=== PATIENT | male | born 1995 | race Caucasian/White ===

== ENCOUNTER 2016-09-16 08:12 | Emergency (ER) | payer SELFPAY ==
[~2016-09-16] VITALS: Ht 152.4 cm; Wt 57.0 kg
[~2016-09-16 08:12] MED LIST: DOCU-144 PO; FER325 PO; HYDR-3671 PO; ISOS60TA PO; LABE300T PO; MYCO500T3 PO; NIFE30TA66 PO; PRED2.5T3 PO; RANI150C11 PO; TACR1CAP PO; ZOF8 PO
[2016-09-16 08:16] VITALS: Ht 152.4 cm; Wt 57.0 kg
[2016-09-16] MEDS ORDERED: GLUCAGON 1 MG INJ ONE (12:16)
== END 2016-09-16 09:38 | disposition left against medical advice (07) ==
LOC: E/R 08:12
DX: Z53.21 Procedure and treatment not carried out due to patient leaving prior to being seen by health care provider (principal)
CPT/HCPCS: J1610

== ENCOUNTER 2016-09-19 21:57 | Inpatient (IN) | payer OTHER ==
[~2016-09-19] VITALS: Ht 160 cm; Wt 52.3 kg
[2016-09-19 23:51] LABS: ADD SCAN DIFF NO
[2016-09-19 23:52] LABS: BASOPHILS % 0.4 % (0.0-2.0); EOSINOPHILS # 0.3 10^3/ul (0.0-0.5); EOSINOPHILS % 3.9 % (0.0-7.0); HEMATOCRIT 38.2 % (42.0-52.0); HEMOGLOBIN 12.1 g/dl (14.0-18.0); LYMPHOCYTES # 1.8 10^3/ul (0.8-2.9); LYMPHOCYTES % 23.1 % (15.0-51.0); MEAN CORPUSCULAR HEMOGLOBIN 26.4 pg (29.0-33.0); MEAN CORPUSCULAR HGB CONC 31.7 g/dl (32.0-37.0); MEAN CORPUSCULAR VOLUME 83.4 fl (82.0-101.0); MONOCYTE # 0.8 10^3/ul (0.3-0.9); MONOCYTES % 9.8 % (0.0-11.0); NEUTROPHIL # 4.8 10^3/ul (1.6-7.5); NEUTROPHILS % 62.7 % (39.0-77.0); PLATELET COUNT 299 10^3/UL (140-415); RED BLOOD COUNT 4.58 10^6/ul (4.70-6.10); RED CELL DISTRIBUTION WIDTH 13.1 % (11.5-14.5); WHITE BLOOD COUNT 7.7 10^3/ul (4.8-10.8)
[2016-09-19] MEDS ORDERED: ACETAMINOPHEN 500 MG TAB PO STA (23:55)
[2016-09-20] VITALS (15 sets, daily range): BP systolic 135–192; BP diastolic 80–115; PULSE 77–89; RESP 16–20; TEMP 98.9; Ht 160 cm; Wt 52.3 kg
[2016-09-20] MEDS ORDERED: hydrALAzine 20 MG INJ IV ONE
[2016-09-20 00:03] LABS: INR 0.91; PROTIME 12.2 Sec (12.2-14.2)
[2016-09-20 00:04] LABS: PARTIAL THROMBOPLASTIN TIME 30.3 Sec (25.0-35.0)
[2016-09-20 00:20] LABS: ALBUMIN 3.7 g/dl (3.3-4.9)
[2016-09-20 00:21] LABS: POTASSIUM 3.6 mmol/L (3.5-5.1)
--- NOTE | 2016-09-20 00:22 | RADRPT ---
PROCEDURE: XR Chest. CLINICAL INDICATION: Chest pain. TECHNIQUE: Portable AP upright view of the chest was obtained. COMPARISON: 03/14/2016 FINDINGS: The cardiomediastinal silhouette is within upper normal limits. The lungs are clear. There is no e vidence for pleural effusion, pneumothorax or pulmonary vascular congestion. The osseous structures are intact with no evidence for acute abnormality. RPTAT:HJJR IMPRESSION: No evidence for acute intrathoracic pathology or change from 03/14/2016. Physician Theron Date Time Electronically viewed and signed by Ho Méndez Physician on 09/20/2016 00:21 /
[2016-09-20 00:23] LABS: ALBUMIN/GLOBULIN RATIO 1.19; CREATININE 0.9 mg/dl (0.61-1.24); TOTAL PROTEIN 6.8 g/dl (6.1-8.1)
[2016-09-20 00:37] LABS: TROPONIN-I 0.018 ng/ml (0.00-0.12)
[2016-09-20] MEDS ORDERED: ONDANSETRON 4 MG INJ ONE (01:00)
[2016-09-20] MEDS ORDERED: ONDANSETRON 4 MG INJ IV STA (01:00)
--- NOTE | 2016-09-20 02:44 | RADRPT ---
PROCEDURE: Noncontrast CT Head. CLINICAL INDICATION: Pain. TECHNIQUE: Noncontrast CT of the head was obtained. The administered radiation dose was CTDI vol = 45 mGy, DLP = 720 mGy-cm. COMPARISON: 03/15/2016 FINDINGS: The ventricles and sulci are within normal limits. There is no acute intracranial hemorrhage or ext ra-axial fluid collection. There is no mass effect. No midline shift is identified. There is no loss of valles-white differentiation to suggest acute infarction. The orbits are within normal limits. The paranasal sinuses and mastoid air cells are without fluid. No destructive osseous lesion is identified. IMPRESSION: No acute findings. RPTAT: HIKT .Niraj Bernstein MD, MD Date Time Electronically viewed and signed by .Niraj Bernstein MD, MD on 09/20/2016 02:44 .T/
--- NOTE | 2016-09-20 03:11 | ERA ---
ER Documentation Chief Complaint Date/Time DATE: 09/20/16 TIME: 03:09 Chief Complaint HIGH BP ALL DAY TODAY, STATES BP MEDS INEFFECTIVE C/O SEVERE HEADACHE +SOB HPI High blood pressure all day today. States blood pressure meds are ineffective. Complains of severe headache. No nausea no vomiting. No focal neurological complaints. ROS All systems reviewed and are negative except as per history of present illness. Medications Home Meds Active Scripts Ondansetron Hcl* (Zofran*) 8 Mg Tab, 8 MG PO Q6H Y for NAUSEA AND OR VOMITING, # 20 TAB Prov:ESTEFANY OTERO [employer] 03/15/16 Docusate Sodium* (Colace*) 100 Mg Capsule, 100 MG PO Q24H Y for CONSTIPATION, # 30 CAP Prov:ESTEFANY OTERO [employer] PROFESSIONAL 03/15/16 Ferrous Sulfate* (Ferrous Sulfate*) 325 Mg Tabec, 325 MG PO DAILY for 30 Days, TAB Prov:OTEROESTEFANY [employer]ODUCTION PROFESSIONAL 03/15/16 Nifedipine* (Procardia XL*) 30 Mg Tabsr, 30 MG PO BID, #180 TAB Prov:NADINE RICO MD 10/05/15 Hydralazine Hcl* (Hydralazine Hcl*) 25 Mg Tab, 50 MG PO Q8, #270 TAB Prov:NADINE RICO MD 10/05/15 Reported Medications Prednisone* (Prednisone*) 2.5 Mg Tablet, 7.5 MG PO DAILY, TAB 10/01/15 Labetalol Hcl* (Labetalol Hcl*) 300 Mg Tablet, 300 MG PO TID, TAB 10/01/15 Ranitidine Hcl (Ranitidine Hcl) 150 Mg Capsule, 75 MG PO BID, CAP 10/01/15 Mycophenolate Mofetil* (Mycophenolate Mofetil*) 500 Mg Tablet, 500 MG PO DAILY, TAB 10/01/15 Tacrolimus* (Tacrolimus*) 1 Mg Capsule, 1 MG PO Q12, CAP 10/01/15 Isosorbide Mononitrate* (Isosorbide Mononitrate*) 60 Mg Tab.er.24h, 60 MG PO DAILY, TAB 10/01/15 Allergies Allergies: Coded Allergies: No Known Allergy (Unverified , 10/01/15) PMhx/Soc History of Surgery: Yes (renal transplant) Anesthesia Reaction: No Hx Neurological Disorder: No Hx Respiratory Disorders: No Hx Cardiac Disorders: Yes (htn) Hx Psychiatric Problems: No Hx Miscellaneous Medical Probl: No Hx Alcohol Use: No Hx Substance Use: No Hx Tobacco Use: No Smoking Status: Never smoker Physical Exam Vitals Vital Signs Date Time Temp Pulse Resp B/P Pulse Ox O2 Delivery O2 Flow Rate FiO2 09/20/16 02:42 79 15 169/129 97 Room Air 09/20/16 02:04 84 18 166/128 98 Room Air 09/20/16 01:09 100 17 173/128 97 Room Air 09/20/16 00:25 96 16 180/130 99 Room Air 09/19/16 23:49 211/145 09/19/16 23:46 Nasal Cannula 2 09/19/16 23:37 87 24 214/148 100 Room Air 09/19/16 22:59 98.2 89 20 216/141 97 Physical Exam Const: [] Head: Atraumatic Eyes: Normal Conjunctiva ENT: Normal External Ears, Nose and Mouth. Neck: Full range of motion..~ No meningismus. Resp: Clear to auscultation bilaterally Cardio: Regular rate and rhythm, no murmurs Abd: Soft, non tender, non distended. Normal bowel sounds Skin: No petechiae or rashes Back: No midline or flank tenderness Ext: No cyanosis, or edema Neur: Awake and alert Psych: Normal Mood and Affect Result Diagram: 09/19/168 09/19/168 Results 24 hrs Laboratory Tests Test 09/19/16 23:48 Activated Partial Thromboplast Time 30.3Sec Alanine Aminotransferase (ALT/SGPT) 17IU/L Albumin 3.7g/dl Albumin/Globulin Ratio 1.19 Alkaline Phosphatase 94IU/L Anion Gap 15 Aspartate Amino Transf (AST/SGOT) 23IU/L B-Type Natriuretic Peptide 79PG/ML Basophils # 0.010^3/ul Basophils % 0.4% Blood Urea Nitrogen 15mg/dl Calcium Level 9.0mg/dl Carbon Dioxide Level 24mmol/L Chloride Level 103mmol/L Creatinine 0.90mg/dl Direct Bilirubin 0.00mg/dl Eosinophils # 0.310^3/ul Eosinophils % 3.9% Globulin 3.10g/dl Glucose Level 112mg/dl Hematocrit 38.2% Hemoglobin 12.1g/dl INR International Normalized Ratio 0.91 Indirect Bilirubin 0.0mg/dl Lymphocytes # 1.810^3/ul Lymphocytes % 23.1% Mean Corpuscular Hemoglobin 26.4pg Mean Corpuscular Hemoglobin Concent 31.7g/dl Mean Corpuscular Volume 83.4fl Mean Platelet Volume 10.0fl Monocytes # 0.810^3/ul Monocytes % 9.8% Neutrophils # 4.810^3/ul Neutrophils % 62.7% Nucleated Red Blood Cells # 0.010^3/ul Nucleated Red Blood Cells % 0.0/100WBC Platelet Count 92938^3/UL Potassium Level 3.6mmol/L Prothrombin Time 12.2Sec Prothrombin Time Ratio 1.0 Red Blood Count 4.5810^6/ul Red Cell Distribution Width 13.1% Sodium Level 138mmol/L Total Bilirubin 0.0mg/dl Total Protein 6.8g/dl Troponin I 0.018ng/ml White Blood Count 7.710^3/ul Current Medications Medications (Trade) Dose Ordered Sig/Tray Route PRN Reason Start Time Stop Time Status Last Admin Dose Admin Hydralazine HCl (Apresoline) 20 mg ONCE ONCE IV 09/20/16 00:00 09/20/16 00:01 DC 09/19/16 23:49 Acetaminophen (Tylenol Tab) 1,000 mg ONCE STAT PO 09/19/16 23:55 09/19/16 23:56 DC 09/20/16 00:24 Ondansetron HCl (Zofran Inj) 4 mg ONCE STAT IV 09/20/16 01:00 09/20/16 01:01 DC 09/20/16 01:03 Ondansetron HCl (Zofran Inj) 4 mg STK-MED ONCE .ROUTE 09/20/16 01:00 09/20/16 01:01 DC Procedures/MDM EKG: Rate/Rhythm: Normal Sinus Rhythm QRS, ST, T-waves: No changes consistent w/ acute ischemia Impression: No evidence of ischemia or arrhythmia Chest X-ray 1V Interpreted by me: Soft Tissue: No acute abnormalities Bones: No acute abnormalities Mediastinum/Cardiac Silhouette/Lungs: No acute abnormalities Medical decision-making: This very pleasant gentleman with hypertensive emergency. Given the fact that a renal transplant I feel the patient is to be admitted. Patient was admitted to hospitalist Critical Care: Time: 45 minutes Treatments/Evaluations: Close monitoring and treatment of unstable vital signs, cardiorespiratory, and neurologic status, while maintaining tight balance of fluid, respiratory, and cardiac interventions. Departure Diagnosis: Primary Impression: Hypertensive crisis Additional Impression: Headache Qualified Code: R51 - Nonintractable headache, unspecified chronicity pattern , unspecified headache type Condition: Critical FRANNIE LARA Sep 20, 2016 03:11
[2016-09-20] MEDS ORDERED: DOCUSATE SODIUM 100 MG CAP PO PRN ×2 (04:30)
[2016-09-20] MEDS ORDERED: NACL 0.9% 3 ML SYG IV SCH (04:30)
[2016-09-20] MEDS ORDERED: ACETAMINOPHEN 325 MG TAB PO PRN (04:30)
[2016-09-20] MEDS ORDERED: MAGNESIUM HYDROXIDE 30ML CUP PO PRN (04:30)
[2016-09-20] MEDS ORDERED: ONDANSETRON 4 MG TAB PO PRN (04:30)
[2016-09-20] MEDS ORDERED: NA PHOSPHATE/BIPHOS 133 ML ENEMA PR PRN (04:30)
[2016-09-20] MEDS ORDERED: LORAZEPAM 2 MG INJ IV PRN (04:30)
[2016-09-20] MEDS ORDERED: NITROGLYCERIN (SL) 0.4 MG TAB SL PRN (04:30)
[2016-09-20] MEDS ORDERED: ALBUTEROL/IPRATROPIUM (NEB) 3 ML AMP HHN PRN (04:30)
[2016-09-20] MEDS ORDERED: hydrALAzine 20 MG INJ IV PRN (04:30)
[2016-09-20] MEDS: SOD CHLORIDE 0.45% 1,000 ML IV SCH ×2 (06:33→17:36)
--- NOTE | 2016-09-20 08:14 | HP ---
DATE OF ADMISSION: 09/20/2016 IDENTIFICATION: This is a 21-year-old male. CHIEF COMPLAINT: Elevated blood pressure and headache. HISTORY OF PRESENT ILLNESS: A 21-year-old male with past medical history of renal transplant, prior hypertensive urgency, essential hypertension, history of medical noncompliance, prior pain medicati on seeking behavior who presents with headache and elevated blood pressure. Apparently, the patient has been taking his medicines, but says that the medicines have not been able to bring his blood pr essure down. He has been having high blood pressure all day and also headache as well. Denies any nausea, vomiting, no upper or lower GI bleeding, no focal deficits. No chest pain, no shortness of breath, no diarrhea, no constipation, no fevers or chills. When he came into the ER today, his syst olic blood pressure was as high as 216 and the diastolic was 141, and he was given hydralazine in th e ER as well. The patient was last here at our hospital from 03/14/2016 to 03/15/2016 for hypertens ulises urgency at that time as well. PAST MEDICAL HISTORY: As stated above. ALLERGIES: NO KNOWN DRUG ALLERGIES. HOME MEDICINES: 1. Include ferrous sulfate 325 mg daily. 2. Hydralazine 50 mg p.o. q.8 hours. 3. Imdur 60 mg daily. 4. Labetalol 300 mg t.i.d. 5. Nifedipine 30 mg b.i.d. 6. Colace 100 mg q.24h. p.r.n. 7. Zofran 8 mg p.o. q.6h. p.r.n. 8. Ranitidine 75 mg b.i.d. 9. Prednisone 7.5 mg daily. 10. Mycophenolate 500 mg daily. 11. Tacrolimus 1 mg q.12h. PAST SURGICAL HISTORY: Renal transplant in the past. FAMILY HISTORY: Noncontributory. SOCIAL HISTORY: Negative for smoking, drinking, or IV drug abuse. PHYSICAL EXAMINATION: VITAL SIGNS: T-max 98.2, pulse 79 to 100, respirations 15 to 24, blood pressure 216 to 166 systolic over 141 to 128 diastolic, saturating at 97% room air. GENERAL: The patient is lying in bed, answering questions appropriately. No acute distress. HEENT: Pupils equal, round, react to light. Extraocular muscles intact. NECK: Supple, no thyromegaly. LUNGS: Clear to auscultation bilaterally. CARDIOVASCULAR: S1, S2 heard. No murmurs, rubs, or gallops. ABDOMEN: Soft, nontender, nondistended. Normal bowel sounds. No rebound or guarding. MUSCULOSKELETAL: No lower extremity edema bilaterally. NEUROLOGIC: No focal deficits. LABORATORIES: CBC is normal. The comprehensive metabolic panel is normal. Head CT was performed, shows no acute findings. Chest x-ray: No evidence of any acute intrathoracic pathology. ASSESSMENT AND PLAN: A 21-year-old male coming in with headache and hypertensive urgency. 1. Headache, most likely secondary to elevated blood pressure. Continue pain control medications, check TSH, A1c, ad lipid panel. He is on morphine and [place] p.r.n. 2. Hypertensive emergency. Again, blood pressure is slightly improved after getting hydralazine in the ER. Continue home blood pressure medicines and high dose of hydralazine IV p.r.n. Consider ca rdiology consult as well. 3. History of renal transplant in the past. Continue CellCept and prednisone and Prograf medicatio ns. 4. Essential hypertension, see #1. 5. Gastrointestinal prophylaxis, ranitidine. 6. Deep venous thrombosis prophylaxis, heparin subQ. Dictated By: ANETA GANDHI Conf#: [id number] DID#: [id number]
[2016-09-20] MEDS: ISOSORBIDE MONONITRATE(SR)60 MG TAB PO SCH (08:28)
[2016-09-20] MEDS: RANITIDINE 150 MG TAB PO SCH ×2 (08:28→20:14)
[2016-09-20] MEDS: NIFEdipine (XL) 30 MG TAB PO SCH ×2 (08:28→20:14)
[2016-09-20] MEDS: FERROUS SULFATE (EC) 325 MG TAB PO SCH (08:28)
[2016-09-20] MEDS: HEPARIN 5,000 UNIT/0.5 ML SYG SC SCH ×2 (08:39→20:16)
[2016-09-20] MEDS: HYDROCODONE/APAP (5/325) TAB PO PRN (10:13)
[2016-09-20] MEDS: TACROLIMUS 1 MG CAP PO SCH ×2 (11:22→20:14)
[2016-09-20] MEDS: MYCOPHENOLATE 250 MG CAP PO SCH (11:22)
[2016-09-20] MEDS: predniSONE 2.5 MG TAB PO SCH (11:23)
[2016-09-20] MEDS: LABETALOL 100 MG TAB PO SCH ×3 (11:23→20:14)
[2016-09-20] MEDS: morphine 2 MG INJ IV PRN ×2 (11:24→19:40)
[2016-09-20] MEDS: ONDANSETRON 4 MG INJ IV PRN (13:47)
--- NOTE | 2016-09-20 17:18 | PDOCDIS ---
Discharge Instructions CONDITION Patient Condition: Good HOME CARE INSTRUCTIONS: Diet Instructions: Regular ACTIVITY: Activity Restrictions: No Restrictions FOLLOW UP/APPOINTMENTS Appointments F/U WITH YOUR PCP AND SCALES INSPECTOR IN 1-2 WEEKS IRENE ARRIAGA Sep 20, 2016 17:18
[2016-09-21] VITALS (7 sets, daily range): BP systolic 137–144; BP diastolic 81–89; PULSE 78–101; RESP 18–20
[2016-09-21] MEDS: ONDANSETRON 4 MG INJ IV PRN (01:51)
[2016-09-21] MEDS: HYDROCODONE/APAP (5/325) TAB PO PRN (01:51)
[2016-09-21 07:43] LABS: ADD SCAN DIFF NO; CHOL/HDL RATIO 3.5 RATIO
[2016-09-21 08:09] LABS: THYROID STIMULATING HORMONE 0.63 MIU/L (0.465-4.680)
[2016-09-21 08:17] LABS: BASOPHILS % 0.3 % (0.0-2.0); EOSINOPHILS # 0.2 10^3/ul (0.0-0.5); EOSINOPHILS % 2.1 % (0.0-7.0); HEMATOCRIT 35.4 % (42.0-52.0); HEMOGLOBIN 11.2 g/dl (14.0-18.0); LYMPHOCYTES # 2.3 10^3/ul (0.8-2.9); LYMPHOCYTES % 26.2 % (15.0-51.0); MEAN CORPUSCULAR HEMOGLOBIN 26.3 pg (29.0-33.0); MEAN CORPUSCULAR HGB CONC 31.6 g/dl (32.0-37.0); MEAN CORPUSCULAR VOLUME 83.1 fl (82.0-101.0); MEAN PLATELET VOLUME 10.7 fl (7.4-10.4); MONOCYTE # 0.5 10^3/ul (0.3-0.9); MONOCYTES % 5.5 % (0.0-11.0); NEUTROPHIL # 5.8 10^3/ul (1.6-7.5); NEUTROPHILS % 65.6 % (39.0-77.0); PLATELET COUNT 280 10^3/UL (140-415); RED BLOOD COUNT 4.26 10^6/ul (4.70-6.10); RED CELL DISTRIBUTION WIDTH 13.2 % (11.5-14.5); WHITE BLOOD COUNT 8.8 10^3/ul (4.8-10.8)
[2016-09-21 08:28] LABS: CREATININE 1.07 mg/dl (0.61-1.24)
[2016-09-21 08:30] LABS: CALCIUM 8.9 mg/dl (8.4-10.2); MAGNESIUM 1.6 mg/dl (1.7-2.5); PHOSPHORUS 4.4 mg/dl (2.5-4.9)
[2016-09-21] MEDS: RANITIDINE 150 MG TAB PO SCH (09:11)
[2016-09-21] MEDS: ISOSORBIDE MONONITRATE(SR)60 MG TAB PO SCH (09:11)
[2016-09-21] MEDS: FERROUS SULFATE (EC) 325 MG TAB PO SCH (09:12)
[2016-09-21] MEDS: LABETALOL 100 MG TAB PO SCH (09:12)
[2016-09-21] MEDS: predniSONE 2.5 MG TAB PO SCH (09:12)
[2016-09-21] MEDS: NIFEdipine (XL) 30 MG TAB PO SCH (09:12)
[2016-09-21] MEDS: TACROLIMUS 1 MG CAP PO SCH (09:12)
[2016-09-21] MEDS: MYCOPHENOLATE 250 MG CAP PO SCH (09:12)
[2016-09-21] MEDS: HEPARIN 5,000 UNIT/0.5 ML SYG SC SCH (09:13)
[2016-09-21] MEDS ORDERED: HYDR-906 PO (12:08)
[2016-09-21] MEDS ORDERED: ONDA4TAB8 PO (12:08)
--- NOTE | 2016-09-21 17:16 | DS ---
DATE OF ADMISSION: 09/20/2016 DATE OF DISCHARGE: 09/21/2016 DISCHARGE DIAGNOSES: 1. Hypertensive urgency secondary to severe headache, now stabilized. 2. History of renal transplant. Continue antirejection medications. 3. Hypertension, now stable on home regimen. No changes to home regimen as acute elevation was sec ondary to headache. HOSPITAL COURSE: The patient is a 21-year-old male with a history of end-stage renal disease, statu s post renal transplant. Apparently since surgery, he has had issues with hypertension. The patien t's BP is usually controlled on his regimen, but it does elevate when he has pain. He does have a h istory of noncompliance as well. The patient presented with a headache, and upon presentation to ED , his BP was found to be severely elevated with a systolic at 216. The patient was given hydralazin e in the ED, was given pain medications, and his BP did improve. He was maintained on his home liam men, and his blood pressure did stabilize with just his home regimen. The patient was felt to be st able for discharge. He does have a engineer fishing vessel, ____, who he follows up with. The patient rec ently had an MRA of his renal arteries looking for renal artery stenosis. The patient is to follow up with his engineer fishing vessel for results of these exams. On day of discharge, patient's vital signs, la bs, physical exam were stable. He had no acute complaints, and his questions were answered. CONDITION ON DISCHARGE: Stable. DISPOSITION: To home. MEDICATIONS: The patient is to continue his usual home medications. The patient was given a prescr iption for: 1. [place] 5/325 one tablet p.o. q.4 hours p.r.n. for pain. 2. Zofran 4 mg p.o. q.6 hours p.r.n. for nausea, vomiting. Once again, patient is to continue his home medications. FOLLOWUP: The patient to follow up with his PCP and engineer fishing vessel in 1 to 2 weeks. Greater than 30 minutes was spent coordinating discharge of this patient. Dictated By: IRENE ARRIAGA MD BS/NTS Conf#: [id number] DID#: [id number]
== END 2016-09-21 13:40 | disposition home or self-care (01) | DRG 305 ==
LOC: E/R 21:57 → TEL 09-20 02:51
PROVIDERS: ADMIT Hospitalist; ATTEND Hospitalist
DX: I10 Essential (primary) hypertension (principal); Z94.0 Kidney transplant status; R51 Headache
CPT/HCPCS: 36415; 70450; 71010; 80048; 80053; 80061; 83036; 83735; 83880; 84100; 84439; 84443; 84484; 85025; 85610; 85730; 93005; 96374; 96375; J0360; J2060; J2270; J2405; J7507; J7512; J7517

== ENCOUNTER 2016-11-13 06:28 | Emergency (ER) | payer OTHER ==
[~2016-11-13] VITALS: Ht 160 cm; Wt 57.0 kg
[~2016-11-13 06:28] MED LIST changes: +HYDR-906 PO; +ONDA4TAB8 PO
[2016-11-13 06:32] VITALS: Ht 160 cm; Wt 57.0 kg
[2016-11-13] MEDS ORDERED: morphine 4 MG/ML VIAL IV STA (06:55)
[2016-11-13] MEDS ORDERED: ONDANSETRON 4 MG INJ IV STA (06:55)
--- NOTE | 2016-11-13 06:57 | ERA ---
ER Documentation Chief Complaint Date/Time DATE: 11/13/16 TIME: 06:50 Chief Complaint headache since this morning HPI 21-year-old male with a history of hypertension and chronic kidney disease status post renal allograft in 2007 on immunosuppressive therapy presents to the ED complaining of acute onset of severe, sharp and pressure-like left-sided headache which radiates throughout his whole head this morning after awakening. Admits to not taking his medications this morning. No relieving or exacerbating factors. Denies visual changes, focal weakness or numbness. Mild , burning, nonradiating epigastric pain but no lower abdominal pain or pain over the transplant site. Nausea and nonbloody, nonbilious vomiting, but no diarrhea or constipation. No hematemesis, hematochezia or melanotic stools. No neck or back pain. No URI symptoms, rhinorrhea or nasal congestion. Denies dysuria, hematuria or polyuria. Denies chest pain or palpitation. No fevers or chills. ROS All systems reviewed and are negative except as per history of present illness. Medications Home Meds Active Scripts Ondansetron Hcl* (Zofran*) 4 Mg Tablet, 4 MG PO Q6H Y for NAUSEA AND OR VOMITING , #30 TAB Prov:IRENE ARRIAGA 09/21/16 Hydrocodone/Acetaminophen ([place] 5-325 Tablet) 1 Each Tablet, 1 EACH PO Q4 for PAIN, #30 TAB Prov:IRENE ARRIAGA 09/21/16 Ondansetron Hcl* (Zofran*) 8 Mg Tab, 8 MG PO Q6H Y for NAUSEA AND OR VOMITING, # 20 TAB Prov:ESTEFANY OTERO NP 03/15/16 Docusate Sodium* (Colace*) 100 Mg Capsule, 100 MG PO Q24H Y for CONSTIPATION, # 30 CAP Prov:ESTEFANY OTERO NP 03/15/16 Ferrous Sulfate* (Ferrous Sulfate*) 325 Mg Tabec, 325 MG PO DAILY for 30 Days, TAB Prov:ESTEFANY OTERO NP 03/15/16 Nifedipine* (Procardia XL*) 30 Mg Tabsr, 30 MG PO BID, #180 TAB Prov:NADINE RICO MD 10/05/15 Hydralazine Hcl* (Hydralazine Hcl*) 25 Mg Tab, 50 MG PO Q8, #270 TAB Prov:NADINE RICO MD 10/05/15 Reported Medications Prednisone* (Prednisone*) 2.5 Mg Tablet, 7.5 MG PO DAILY, TAB 10/01/15 Labetalol Hcl* (Labetalol Hcl*) 300 Mg Tablet, 300 MG PO TID, TAB 10/01/15 Ranitidine Hcl (Ranitidine Hcl) 150 Mg Capsule, 75 MG PO BID, CAP 10/01/15 Mycophenolate Mofetil* (Mycophenolate Mofetil*) 500 Mg Tablet, 500 MG PO DAILY, TAB 10/01/15 Tacrolimus* (Tacrolimus*) 1 Mg Capsule, 1 MG PO Q12, CAP 10/01/15 Isosorbide Mononitrate* (Isosorbide Mononitrate*) 60 Mg Tab.er.24h, 60 MG PO DAILY, TAB 10/01/15 Allergies Allergies: Coded Allergies: No Known Allergy (Unverified , 10/01/15) PMhx/Soc Reviewed in chart. As per HPI. 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 Severe distress due to pain. Head: Atraumatic Eyes: Pupils equal reactive to light, extraocular movements are intact normal Conjunctiva ENT: Normal External Ears, Nose and Mouth. Neck: Full range of motion. Nontender. No meningismus. Resp: Breath sounds are equal and clear to auscultation bilaterally Cardio: Tachycardic. Regular rate and rhythm, no murmurs Abd: Soft, mild epigastric tenderness but no tenderness over the right lower quadrant allograft site. No rebound or guarding. Skin: No petechiae or rashes Back: No midline or flank tenderness Ext: No cyanosis, or edema Neur: Awake and alert. Cranial nerves II through XII are grossly intact. No focal deficit observed. Psych: Patient appears extremely anxious but not depressed. Result Diagram: 11/13/16 0655 11/13/16 0655 Results 24 hrs Laboratory Tests Test 11/13/16 06:55 White Blood Count 11.610^3/ul Red Blood Count 4.8510^6/ul Hemoglobin 12.5g/dl Hematocrit 38.9% Mean Corpuscular Volume 80.2fl Mean Corpuscular Hemoglobin 25.8pg Mean Corpuscular Hemoglobin Concent 32.1g/dl Red Cell Distribution Width 13.8% Platelet Count 45389^3/UL Mean Platelet Volume 10.2fl Neutrophils % 56.4% Lymphocytes % 33.4% Monocytes % 7.4% Eosinophils % 2.2% Basophils % 0.3% Nucleated Red Blood Cells % 0.0/100WBC Neutrophils # 6.610^3/ul Lymphocytes # 3.910^3/ul Monocytes # 0.910^3/ul Eosinophils # 0.310^3/ul Basophils # 0.010^3/ul Nucleated Red Blood Cells # 0.010^3/ul Prothrombin Time 12.7Sec Prothrombin Time Ratio 1.0 INR International Normalized Ratio 0.95 Activated Partial Thromboplast Time 26.4Sec Sodium Level 137mmol/L Potassium Level 3.8mmol/L Chloride Level 108mmol/L Carbon Dioxide Level 22mmol/L Anion Gap 11 Blood Urea Nitrogen 17mg/dl Creatinine 1.01mg/dl Glucose Level 117mg/dl Calcium Level 9.7mg/dl Total Bilirubin 0.3mg/dl Direct Bilirubin 0.00mg/dl Indirect Bilirubin 0.3mg/dl Aspartate Amino Transf (AST/SGOT) 24IU/L Alanine Aminotransferase (ALT/SGPT) 32IU/L Alkaline Phosphatase 83IU/L Total Protein 7.1g/dl Albumin 4.0g/dl Globulin 3.10g/dl Albumin/Globulin Ratio 1.29 Lipase 149U/L Current Medications Medications (Trade) Dose Ordered Sig/Tray Route PRN Reason Start Time Stop Time Status Last Admin Dose Admin Ondansetron HCl (Zofran Inj) 4 mg ONCE STAT IV 11/13/16 06:55 11/13/16 06:57 DC 11/13/16 07:01 Morphine Sulfate (morphine) 4 mg ONCE STAT IV 11/13/16 06:55 11/13/16 06:57 DC 11/13/16 07:01 Hydralazine HCl (Apresoline) 20 mg ONCE ONCE IV 11/13/16 07:00 11/13/16 07:01 DC 11/13/16 07:01 Labetalol HCl (Labetalol) 20 mg ONCE ONCE IV 11/13/16 07:00 11/13/16 07:01 DC 11/13/16 07:02 Pantoprazole (Protonix Iv) 40 mg ONCE ONCE IV 11/13/16 07:30 11/13/16 07:31 DC 11/13/16 07:30 Metoclopramide HCl (Reglan) 10 mg ONCE ONCE IV 11/13/16 07:30 11/13/16 07:31 DC 11/13/16 07:31 Diphenhydramine HCl (Benadryl) 25 mg ONCE ONCE IV 11/13/16 07:30 11/13/16 07:31 DC 11/13/16 07:31 Hydralazine HCl (Apresoline) 20 mg ONCE ONCE IV 11/13/16 08:00 11/13/16 08:01 DC 11/13/16 07:55 Labetalol HCl 40 mg 40 mg ONCE ONCE IV 11/13/16 08:00 11/13/16 08:01 DC Nicardipine HCl (Cardene Iv) 200 ml @ 50 mls/hr TITRATE IV 11/13/16 08:00 IV Flush 10 ml 10 ml STK-MED ONCE .ROUTE 11/13/16 08:16 11/13/16 08:17 DC Sodium Chloride 100 ml @ ud STK-MED ONCE .ROUTE 11/13/16 08:16 11/13/16 08:17 DC Iohexol (Omnipaque) 100 ml @ ud STK-MED ONCE .ROUTE 11/13/16 08:16 11/13/16 08:17 DC RHYTHM STRIP INTERPRETATION: Time: 07:46. Sinus rhythm. Ventricular rate 82. No ectopy. Indication: Hypertensive emergency/tachycardia. EKG: Sinus tachycardia. Ventricular rate 107. LVH with repolarization abnormality. No acute ST segment elevation or depression. No ectopy EP Interpretation: Abnormal EKG. IMAGING: PROCEDURE: XR Chest. CLINICAL INDICATION: Hypertension TECHNIQUE: Chest AP portable. COMPARISON: 09/19/2016 FINDINGS: The mediastinal structures are unremarkable. The heart is normal in size and configuration. The pulmonary vascularity is normal. The lung mcdowell are unremarkable. No consolidation is identified. The pleural spaces are unremarkable. The axial skeleton is unremarkable. IMPRESSION: No active intrathoracic disease. RPTAT: HGDB .Kumar Garcia MD, Date Time Electronically viewed and signed by .Kumar Garcia MD, on 11/13/2016 09:04 .B/ PROCEDURE: CT BRAIN WITHOUT CONTRAST CLINICAL INDICATION: 21-year-old male with headaches and hypertension. TECHNIQUE: The study was performed utilizing a [employer] VCT 64-slice CT scanner. Direct axial sections were obtained from the foramen magnum to the vertex without the use of intravenous contrast material. Sagittal and coronal reformations were obtained. One or more the following dose reduction techniques were utilized: automated exposure control, adjustment of the mA and/or kV according to patient's size or use of iterative reconstruction technique. The images were viewed on a PACS workstation. CTD/vol = 43.1 mGy; Total Exam DLP = 720.2 mGy-cm. COMPARISON: CT brain September 20, 2016; CT brain March 15, 2016; MRI brain October 03, 2015; MRI brain October 03, 2015. FINDINGS: There is diffuse subarachnoid blood identified throughout the basal cisterns , extending into the sylvian region and prepontine space. There is a prominent cisterna magna noted with blood identified within it. There is asymmetry of the lateral ventricles with the left side being greater than the right however this is without significant interval change. Otherwise the ventricular configuration is within normal limits. There is no evidence for midline shift. The bony calvarium is intact The partially visualized paranasal sinuses right mastoid air cells are without evidence for abnormal soft tissue. No air-fluid levels are noted. There is mild dependent soft tissue within the left mastoid air cells. IMPRESSION: Diffuse subarachnoid hemorrhage. CRITICAL RESULTS: A call report was made to [facility] ER Dr. Fuentes on November 13, 2016 at 07:54 a.m. .Ulises Rios MD, Date Time Electronically viewed and signed by .Ulises Rios MD, on 11/13/2016 07:57 .M/ PROCEDURE: CT angiogram of the brain with contrast. CLINICAL INDICATION: Subarachnoid hemorrhage. TECHNIQUE: Thin section axial, coronal and sagittal images were performed through the brain following injection of 100 cc of Isovue 370. One or more of the following dose reduction techniques were used: - Automated exposure control. - Adjustment of the mA and/or kV according to patient size. Use of iterative reconstruction technique. Radiation dose: CTDI: 21.1 and DLP: 665. COMPARISON: The MRA 10/03/2015. 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 The anterior communicating artery is unremarkable with no evidence of aneurysm. The cavernous and supracavernous portions of the internal carotid arteries are normal. The M1 segment of the right middle cerebral artery is draped over a mass with peripheral contrast enhancement. This may be the result of a thrombosed aneurysm. An aneurysm is not identified at this time 10/03/2015 MRA. The insular branches and M2 segment of the right middle cerebral artery are unremarkable. The left middle cerebral artery is normal. The basilar artery, right and left posterior cerebral arteries and right and left superior cerebellar arteries are unremarkable. There is ectasia of the distal left vertebral artery. There is a tortuous innominate right vertebral artery extending into the basilar artery which is small measuring about 2 mm in size. The right anterior inferior cerebellar arteries unremarkable. The left anterior inferior cerebellar artery is visualized and is patent. The posterior inferior cerebellar arteries are visualized and patent. The dural sinuses are patent. The brain parenchyma is normal. There is a prominent cisterna magna. There is no evidence of hydrocephalous, transtentorial or subfalcine herniation. Subarachnoid hemorrhage is present in the suprasellar cistern and subarachnoid space. IMPRESSION: 1. 1.3 x 0.7 cm mass with peripheral enhancement inferior to the M1 segment of the right middle cerebral artery which may be the result of a thrombosed aneurysm. Consider conventional cerebral angiogram for further evaluation. No aneurysm was identified at the site on the prior MRA of the brain dated 2015. 2. 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 3. 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 4. 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 5. Stable diffuse subarachnoid hemorrhage. 6. Findings were phoned to Dr. Robert Fuentes. RPTAT:AAJJ Physician Anayeli Date Time Electronically viewed and signed by Physician Anayeli on 11/13/2016 09:09 JM/ [ ] Procedures/MDM DOCUMENTS REVIEWED: ED nurse, prior ED, prior records including admission history and physical, progress notes and discharge summary as well as CT and MRI reports September 2015 REEXAMINATION/REEVALUATION: Time: 07:30. Mild decrease in headache but still with nausea vomiting. Reglan, Benadryl, and Protonix ordered. Time: 07:46 BP 214/128. Repeat hydralazine 20 mg and labetalol 40 mg. Time: 0755. CT reveals diffuse subarachnoid hemorrhage and CTA ordered as per radiology. Cardene drip initiated. Time: 08:40 BP 138/88 on Cardene drip. Pain decreased. Sleeping but easily arousable. Motor and sensory equal bilaterally. CTA reveals possible right middle cerebral artery thrombosed aneurysm. At 09:40. 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 At this point he is neurologically intact. Hypertensive emergency BP controlled with Cardene drip. Neurosurgery, Dr. Van, requested and arranged transfer to high level of care at [facility]. Risks and benefits of transfer explained and understood by the patient and his mother. Counseled patient and mother regarding diagnosis, diagnostic results and plan for transfer. CALLS/CONSULTS: Time 07:55, Dr. Armstrong CALLS/CONSULTS: Time 07:55, Dr. Van, Recommends transfer to a higher level of care he will make arrangements. CALLS/CONSULTS: Time 09:12. Accepted to [facility]. [facility] transfer center will arrange for [facility] transport . CRITICAL CARE TIME: Due to the high probability of sudden clinically significant hemodynamic, cardiovascular and neurologic deterioration, this patient with subarachnoid hemorrhage and hypertensive emergency required multiple, frequent reevaluations of vital signs and response to therapy. Additional critical care time was spent in review of previous medical records and consultation with neurosurgery, Dr. Van the admitting physician Dr. Armstrong. TOTAL CRITICAL CARE TIME: 45 minutes not including other separately reportable procedures. Departure Diagnosis: Primary Impression: Subarachnoid hemorrhage Additional Impressions: Hypertensive emergency History of renal transplant Headache Qualified Code: R51 - Acute intractable headache, unspecified headache type Condition: Critical ROBERT FUENTES MD November 13, 2016 06:57
[2016-11-13] MEDS ORDERED: hydrALAzine 20 MG INJ IV ONE ×2 (07:00→08:00)
[2016-11-13] MEDS ORDERED: LABETALOL HCL 20MG INJ IV ONE ×2 (07:00→08:00)
[2016-11-13 07:17] LABS: ADD SCAN DIFF NO
[2016-11-13 07:28] LABS: BASOPHILS % 0.3 % (0.0-2.0); EOSINOPHILS # 0.3 10^3/ul (0.0-0.5); EOSINOPHILS % 2.2 % (0.0-7.0); HEMATOCRIT 38.9 % (42.0-52.0); HEMOGLOBIN 12.5 g/dl (14.0-18.0); LYMPHOCYTES # 3.9 10^3/ul (0.8-2.9); LYMPHOCYTES % 33.4 % (15.0-51.0); MEAN CORPUSCULAR HEMOGLOBIN 25.8 pg (29.0-33.0); MEAN CORPUSCULAR HGB CONC 32.1 g/dl (32.0-37.0); MEAN CORPUSCULAR VOLUME 80.2 fl (82.0-101.0); MEAN PLATELET VOLUME 10.2 fl (7.4-10.4); MONOCYTE # 0.9 10^3/ul (0.3-0.9); MONOCYTES % 7.4 % (0.0-11.0); NEUTROPHIL # 6.6 10^3/ul (1.6-7.5); NEUTROPHILS % 56.4 % (39.0-77.0); PLATELET COUNT 308 10^3/UL (140-415); RED BLOOD COUNT 4.85 10^6/ul (4.70-6.10); RED CELL DISTRIBUTION WIDTH 13.8 % (11.5-14.5); WHITE BLOOD COUNT 11.6 10^3/ul (4.8-10.8)
[2016-11-13] MEDS ORDERED: DIPHENHYDRAMINE 50 MG INJ IV ONE (07:30)
[2016-11-13] MEDS ORDERED: PANTOPRAZOLE 40 MG INJ IV ONE (07:30)
[2016-11-13] MEDS ORDERED: METOCLOPRAMIDE 10 MG INJ IV ONE (07:30)
[2016-11-13 07:42] LABS: INR 0.95; PROTIME 12.7 Sec (12.2-14.2)
[2016-11-13 07:43] LABS: PARTIAL THROMBOPLASTIN TIME 26.4 Sec (25.0-35.0)
[2016-11-13 07:46] LABS: ALBUMIN/GLOBULIN RATIO 1.29; BILIRUBIN,INDIRECT 0.3 mg/dl (0-1.1); BILIRUBIN,TOTAL 0.3 mg/dl (0.2-1.3); CALCIUM 9.7 mg/dl (8.4-10.2); CREATININE 1.01 mg/dl (0.61-1.24); POTASSIUM 3.8 mmol/L (3.5-5.1); TOTAL PROTEIN 7.1 g/dl (6.1-8.1)
--- NOTE | 2016-11-13 07:58 | RADRPT ---
PROCEDURE: CT BRAIN WITHOUT CONTRAST CLINICAL INDICATION: 21-year-old male with headaches and hypertension. TECHNIQUE: The study was performed utilizing a [employer] VCT 64-slice CT scanner. Direct axia l sections were obtained from the foramen magnum to the vertex without the use of intravenous contra st material. Sagittal and coronal reformations were obtained. One or more the following dose reduct ion techniques were utilized: automated exposure control, adjustment of the mA and/or kV according t o patient's size or use of iterative reconstruction technique. The images were viewed on a PACS [employer]. CTD/vol = 43.1 mGy; Total Exam DLP = 720.2 mGy-cm. COMPARISON: CT brain September 20, 2016; CT brain March 15, 2016; MRI brain October 03, 2015; MRI bra in October 03, 2015. FINDINGS: There is diffuse subarachnoid blood identified throughout the basal cisterns , extending into the sy lvian region and prepontine space. There is a prominent cisterna magna noted with blood identified within it. There is asymmetry of the lateral ventricles with the left side being greater than the r ight however this is without significant interval change. Otherwise the ventricular configuration i s within normal limits. There is no evidence for midline shift. The bony calvarium is intact The pa rtially visualized paranasal sinuses right mastoid air cells are without evidence for abnormal soft tissue. No air-fluid levels are noted. There is mild dependent soft tissue within the left mastoid air cells. IMPRESSION: Diffuse subarachnoid hemorrhage. CRITICAL RESULTS: A call report was made to [facility] ER Dr. Sahu on November 13, 2016 at 07:54 a.m. .Ulises Rios MD, Date Time Electronically viewed and signed by .Ulises Rios MD, on 11/13/2016 07:57 .M/
[2016-11-13] MEDS ORDERED: niCARdipine-D5W 0.1MG/ML DRIP 200 ML IV SCH (08:00)
[2016-11-13] MEDS ORDERED: IOHEXOL 100 ML ONE (08:16)
[2016-11-13] MEDS ORDERED: SOD CHLORIDE 0.9% 100 ML ONE (08:16)
--- NOTE | 2016-11-13 09:05 | RADRPT ---
PROCEDURE: XR Chest. CLINICAL INDICATION: Hypertension TECHNIQUE: Chest AP portable. COMPARISON: 09/19/2016 FINDINGS: The mediastinal structures are unremarkable. The heart is normal in size and configuration. The pu lmonary vascularity is normal. The lung mcdowell are unremarkable. No consolidation is identified. The pleural spaces are unremarkable. The axial skeleton is unremarkable. IMPRESSION: No active intrathoracic disease. RPTAT: HGDB .Kumar Garcia MD, MD Date Time Electronically viewed and signed by .Kumar Garcia MD, MD on 11/13/2016 09:04 .B/
--- NOTE | 2016-11-13 09:10 | RADRPT ---
AMENDMENT: 11/13/2016 9:40:47 AM Reinaldo Lipscomb M.D. Impression: A second review suggests 2.5 mm aneurysm off of the A2 segment of the right anterior ce rebral artery. Dr. Sahu was notified. PROCEDURE: CT angiogram of the brain with contrast. CLINICAL INDICATION: Subarachnoid hemorrhage. TECHNIQUE: Thin section axial, coronal and sagittal images were performed through the brain follow ing injection of 100 cc of Isovue 370. One or more of the following dose reduction techniques were used: - Automated exposure control. - Adjustment of the mA and/or kV according to patient size. Use of iterative reconstruction technique. Radiation dose: CTDI: 21.1 and DLP: 665. COMPARISON: The MRA 10/03/2015. FINDINGS: The anterior cerebral arteries are normal except for hypoplasia of the A1 segment of the right anter ior cerebral artery. The anterior communicating artery is unremarkable with no evidence of aneurysm . The cavernous and supracavernous portions of the internal carotid arteries are normal. The M1 segment of the right middle cerebral artery is draped over a mass with peripheral contrast en hancement. This may be the result of a thrombosed aneurysm. An aneurysm is not identified at this time 10/03/2015 MRA. The insular branches and M2 segment of the right middle cerebral artery are un remarkable. The left middle cerebral artery is normal. The basilar artery, right and left posterior cerebral arteries and right and left superior cerebella r arteries are unremarkable. There is ectasia of the distal left vertebral artery. There is a tortuous innominate right vertebral artery extending into the basilar artery which is sma ll measuring about 2 mm in size. The right anterior inferior cerebellar arteries unremarkable. The left anterior inferior cerebellar artery is visualized and is patent. The posterior inferior cerebe llar arteries are visualized and patent. The dural sinuses are patent. The brain parenchyma is normal. There is a prominent cisterna magna. T here is no evidence of hydrocephalous, transtentorial or subfalcine herniation. Subarachnoid hemorr jeanie is present in the suprasellar cistern and subarachnoid space. IMPRESSION: 1. 1.3 x 0.7 cm mass with peripheral enhancement inferior to the M1 segment of the right middle cere bral artery which may be the result of a thrombosed aneurysm. Consider conventional cerebral angiogr am for further evaluation. No aneurysm was identified at the site on the prior MRA of the brain date d 10/03/2015. 2. 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 3. 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 4. 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 5. Stable diffuse subarachnoid hemorrhage. 6. Findings were phoned to Dr. Mandeep Sahu. RPTAT:AAJJ Physician Anayeli Date Time Electronically viewed and signed by Pardeep Lipscomb Physician on 11/13/2016 09:40 JM/
[2016-11-13 09:50] VITALS: BP 138/83; PULSE 110; RESP 18; TEMP 98
[2016-11-13] MEDS ORDERED: FENTAnyl 50 MCG/ML VIAL IV ONE (10:30)
== END 2016-11-13 10:03 | disposition home or self-care (01) ==
LOC: E/R 06:28
DX: I60.9 Nontraumatic subarachnoid hemorrhage, unspecified (principal); R40.2252 Coma scale, best verbal response, oriented, at arrival to emergency department; I16.1 Hypertensive emergency; I12.9 Hypertensive chronic kidney disease with stage 1 through stage 4 chronic kidney disease, or unspecified chronic kidney disease; N18.9 Chronic kidney disease, unspecified; R11.2 Nausea with vomiting, unspecified; R40.2362 Coma scale, best motor response, obeys commands, at arrival to emergency department; R40.2142 Coma scale, eyes open, spontaneous, at arrival to emergency department; Z94.0 Kidney transplant status
CPT/HCPCS: 70450; 70496; 71010; 80053; 83690; 84484; 85025; 85576; 85610; 85730; 93005; 96374; 96375; 96376; C9113; J0360; J1200; J2270; J2405; J2765; J3010; Q9967; Z7502; Z7610

== ENCOUNTER 2016-12-06 18:06 | Inpatient (IN) | payer OTHER ==
[~2016-12-06] VITALS: Ht 160 cm; Wt 53.7 kg
[2016-12-06 21:14] VITALS: Ht 160 cm; Wt 53.7 kg
[2016-12-06 21:19] VITALS: BP 119/71; RESP 18
[2016-12-06] MEDS ORDERED: BISACODYL 10 MG SUPP PR PRN (22:00)
[2016-12-06] MEDS: PSYLLIUM 28% PACKET PO SCH (22:00)
[2016-12-06] MEDS ORDERED: hydrOXYzine HCL 10 MG TAB PO PRN (22:00)
[2016-12-06] MEDS ORDERED: MAGNESIUM HYDROXIDE 30ML CUP PO PRN (22:00)
[2016-12-06] MEDS: DOCUSATE SODIUM 100 MG CAP PO SCH (23:02)
[2016-12-06] MEDS: HEPARIN 5,000 UNIT/0.5 ML VIAL SC SCH (23:19)
[2016-12-06] MEDS: MYCOPHENOLATE 250 MG CAP PO SCH (23:31)
[2016-12-06] MEDS: LEVETIRACETAM 750 MG TAB PO SCH (23:31)
[2016-12-06] MEDS: TACROLIMUS 1 MG CAP PO SCH (23:31)
[2016-12-06] MEDS: MINOXIDIL 2.5 MG TAB PO SCH (23:32)
[2016-12-06 23:44] LABS: ADD UMIC NO; URINE BILIRUBIN (Dip) NEGATIVE (NEGATIVE); URINE BLOOD (Dip) NEGATIVE (NEGATIVE); URINE COLOR LT. YELLOW (YELLOW); URINE GLUCOSE (Dip) NEGATIVE (NEGATIVE); URINE KETONES (Dip) NEGATIVE (NEGATIVE); URINE LEUKOCYTE ESTERASE (Dip) NEGATIVE (NEGATIVE); URINE NITRITE (Dip) NEGATIVE (NEGATIVE); URINE TOTAL PROTEIN (Dip) NEGATIVE (NEGATIVE); URINE UROBILINOGEN (Dip) 0.2 E.U./dL (0.1-1.0)
[2016-12-07] MEDS: PANTOPRAZOLE (EC) 40 MG TAB PO SCH (06:21)
[2016-12-07 06:48] LABS: ADD SCAN DIFF NO
[2016-12-07 06:51] LABS: BASOPHILS % 0.5 % (0.0-2.0); EOSINOPHILS # 0.2 10^3/ul (0.0-0.5); EOSINOPHILS % 2.7 % (0.0-7.0); HEMATOCRIT 28.1 % (42.0-52.0); LYMPHOCYTES # 2.8 10^3/ul (0.8-2.9); LYMPHOCYTES % 47.3 % (15.0-51.0); MEAN CORPUSCULAR HEMOGLOBIN 25.6 pg (29.0-33.0); MEAN CORPUSCULAR VOLUME 79.8 fl (82.0-101.0); MEAN PLATELET VOLUME 9.6 fl (7.4-10.4); MONOCYTE # 0.5 10^3/ul (0.3-0.9); NEUTROPHIL # 2.5 10^3/ul (1.6-7.5); NEUTROPHILS % 41.3 % (39.0-77.0); PLATELET COUNT 495 10^3/UL (140-415); RED BLOOD COUNT 3.52 10^6/ul (4.70-6.10); RED CELL DISTRIBUTION WIDTH 13.4 % (11.5-14.5)
[2016-12-07 07:15] LABS: PHOSPHORUS 5.5 mg/dl (2.5-4.9)
[2016-12-07 07:16] LABS: MAGNESIUM 1.4 mg/dl (1.7-2.5)
[2016-12-07 07:20] LABS: ALBUMIN 4.2 g/dl (3.3-4.9); POTASSIUM 3.7 mmol/L (3.5-5.1)
[2016-12-07 07:22] LABS: CREATININE 1.01 mg/dl (0.61-1.24)
[2016-12-07 07:23] LABS: ALBUMIN/GLOBULIN RATIO 1.35; CALCIUM 9.7 mg/dl (8.4-10.2); TOTAL PROTEIN 7.3 g/dl (6.1-8.1)
[2016-12-07 07:44] VITALS: BP 150/99; RESP 18
[2016-12-07] MEDS: TACROLIMUS 1 MG CAP PO SCH ×2 (09:24→20:53)
[2016-12-07] MEDS: HYDROCORTISONE 1% 28.35 GM OINT TOP SCH ×3 (09:24→21:06)
[2016-12-07] MEDS: PROPRANOLOL 40 MG TAB PO SCH ×3 (09:24→20:54)
[2016-12-07] MEDS: ASPIRIN (EC) 81 MG TAB PO SCH (09:25)
[2016-12-07] MEDS: predniSONE 2.5 MG TAB PO SCH (09:25)
[2016-12-07] MEDS: MINOXIDIL 2.5 MG TAB PO SCH ×2 (09:25→20:55)
[2016-12-07] MEDS: DOCUSATE SODIUM 100 MG CAP PO SCH ×2 (09:25→20:52)
[2016-12-07] MEDS: LEVETIRACETAM 750 MG TAB PO SCH ×2 (09:26→20:55)
[2016-12-07] MEDS: HEPARIN 5,000 UNIT/0.5 ML VIAL SC SCH ×2 (09:28→21:12)
[2016-12-07] MEDS: PSYLLIUM 28% PACKET PO SCH ×2 (09:28→21:05)
[2016-12-07] MEDS: MYCOPHENOLATE 250 MG CAP PO SCH ×2 (09:29→20:55)
--- NOTE | 2016-12-07 12:01 | CONS ---
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 ACTIVE COMORBIDITIES: 1. Encephalopathy. 2. Hypertension. 3. Chronic kidney disease with history of allograft. 4. Status post sepsis. 5. Right lower lobe infiltrate. 6. Impairments in self-care, mobility, and cognition. HISTORY OF PRESENT ILLNESS: The patient is a pleasant 21-year-old gentleman with a history of a arabella al allograft and immunosuppression in addition to hypertension, who was admitted with new-onset "wor st headache of his life" with severe hypertension with systolic blood pressure in the 200s. The pat ient was noted to have diffuse subarachnoid hemorrhage and anterior communicating artery aneurysm an d patient underwent a craniotomy in addition to aneurysm clipping. The patient was placed on mechan ical ventilator and also treated for sepsis, and right lower lobe infiltrates in addition to cerebra l vasospasms and encephalopathy. The patient did also undergo angioplasty of right transplanted arabella al artery stent on 11/29/2016. The patient has now been cleared to transfer to the [facility] for comprehensive interdisciplinary rehab care. FUNCTIONAL HISTORY: Prior to recent events, he was independent in self-care tasks and mobility. Cu rrently, he requires minimal to moderate assist for self-care and mobility tasks. I have reviewed the preadmission screen and patient's current functional status is consistent with t he preadmission screen. SOCIAL HISTORY: The patient lives at home with his mother and does have supportive family. PAST MEDICAL HISTORY: 1. Hypertension. 2. Chronic kidney disease, status post allograft. 3. Hypertension. CURRENT MEDICATIONS: 1. Amitriptyline 50 mg at bedtime. 2. Aspirin 81 mg daily. 3. Colace 100 mg b.i.d. 4. Heparin subcutaneously. 5. Hydrocortisone topically. 6. Hydroxyzine 10 mg p.r.n. 7. Keppra 1500 mg b.i.d. 8. Melatonin 5 mg at bedtime. 9. Minoxidil 5 mg b.i.d. 10. Protonix 40 mg p.o. daily. 11. Propranolol 80 mg t.i.d. 12. Hydralazine 100 mg p.o. t.i.d. 13. CellCept 250 mg b.i.d. 14. Prograf 3 mg b.i.d. ALLERGIES: THE PATIENT WITH NO KNOWN DRUG ALLERGIES. PHYSICAL EXAMINATION: VITAL SIGNS: The patient is currently afebrile with stable vital signs. HEENT: The extraocular motions are intact. Patient with notable craniotomy scar, clean, dry and in tact. Oropharynx clear. NECK: Supple. LUNGS: Clear anteriorly. CARDIAC: S1, S2. ABDOMEN: Soft, nontender, positive bowel sounds. NEUROLOGICAL: He is awake and alert and oriented to person and hospital. He will follow simple one -step commands. He does have impaired short-term memory. He demonstrates antigravity strength in b ilateral upper extremity and lower extremity. The patient has impaired dynamic balance. PLAN: The patient has been admitted for comprehensive interdisciplinary acute rehab and is anticipa rajendra to tolerate 3 hours of daily therapy in divided doses for at least 5 out of 7 days a week. The treatment plan will include: 1. Physical therapy to focus on bed mobility, transfers, and household ambulation with the goal of having patient reach a standby assist level. 2. Occupational therapy to focus on hygiene, grooming, dressing, bathing, and toileting activities with the goal of having patient reach standby assist level. 3. Rehabilitation speech therapy for full cognitive reassessment and training with the goal of havi ng the patient return to baseline cognition. 4. Rehabilitation nursing for carryover of therapeutic interventions, the goal of continent of oma l and bladder, the goal of patient and family education with regards to the aforementioned issues. REHABILITATION BARRIER: Cognition. INTERVENTION FOR BARRIER: Speech therapy. ESTIMATED LENGTH OF STAY: 14 days. DISPOSITION GOAL: Home. I acknowledge that I performed a full physical examination on this patient within 24 hours of admiss ion to the rehabilitation unit and believe the patient is a good candidate for comprehensive interdi sciplinary rehab care and is anticipated to make reasonable goals in a reasonable period of time as outlined above. Dictated By: ERMA PAZ/JUNO Conf#: [id number] DID#: [id number]
--- NOTE | 2016-12-07 13:46 | HP ---
DATE OF ADMISSION: 12/06/2016 CHIEF COMPLAINT: Subarachnoid hemorrhage, history of renal transplant, history of end-stage renal d isease, hypertension. 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 History of hypertension, his tory of medical noncompliance, who presented to [facility] on 11/13/2016 for acute severe left-sided headache. The patient was diagnosed with hypertensive crisis and was found to palomo ve subarachnoid hemorrhage. He underwent a cerebral angiogram on November 13 showing a small vessel ane urysm, he was transferred to [facility]. The patient is status post craniotomy for aneurysm clipping and external drain placement. The patient's surgery had no complications. Post surgery, the patient's was, however, on a mechanical ventilator. The course was complicated with sepsis. The patient, how ever, was subsequently able to be extubated on November 18. The patient during his hospital course als o underwent angioplasty of his right transplant renal artery performed by Dr. Ya. The patient, fred abdi, had a significant decline in his premorbid condition, as a result he was transferred to [facility] for continued care. Upon my evaluation of the patient at this time, he is currently stable. Denies any fevers, chills, nausea, vomiting, any shortness of breath. PAST MEDICAL HISTORY: As stated above, history of end-stage renal disease, history of renal transpl ant, history of hypertension, history of medical noncompliance. PAST SURGICAL HISTORY: Status post donor renal transplant, status post craniotomy with ane urysm clipping. FAMILY HISTORY: Noncontributory. SOCIAL HISTORY: Does not drink, smoke, or do drugs. MEDICATIONS: The patient medications have been reviewed and reconciled. ALLERGIES: NO KNOWN DRUG ALLERGIES. REVIEW OF SYSTEMS: A 14-point review of systems was conducted. Pertinent positives as stated in HP I, otherwise negative. PHYSICAL EXAMINATION: VITAL SIGNS: Blood pressure is 150/99, respirations 18, pulse 66, temperature 98.0. HEENT: Head is normocephalic. NECK: Supple. HEART: Regular rate. LUNGS: Show diminished breath sounds at the base, otherwise clear. ABDOMEN: Soft, nontender to palpation. No rebound or guarding. EXTREMITIES: Negative for clubbing, cyanosis, no edema. DERMATOLOGIC: No rashes. MUSCULOSKELETAL: No joint effusions. NEUROLOGIC: No focal deficits. LABORATORY DATA: Shows a white count 6.0, hemoglobin 9.0, hematocrit 28.1, platelet count 495. BMP within normal limits. Phosphorus 5.5, magnesium 1.4. ASSESSMENT AND PLAN: 1. Subarachnoid hemorrhage status post craniotomy with aneurysm clipping. Status post ____ drain p lacement and removal. Plan at this point would be to continue to monitor patient closely. Continue good blood pressure control. The patient to follow up with outpatient neurosurgery services. 2. Hypertension. Blood pressure currently controlled. Continue current medical management. Adjus t blood pressure medications as needed. 3. End-stage renal disease status post donor renal transplant. The patient's renal functi on is currently at baseline. At this point, has excellent allograft function. Continue current med ical management, monitor renal function closely. 4. Renal artery stenosis. The patient is status post renal artery angioplasty with stent placement . We will continue to monitor, continue aspirin. 5. Immunosuppression. The patient is currently on triple therapy. We will continue. The patient' s Prograf levels have been stable at [facility]. Will continue to monitor, will check a Prograf level as needed. 6. Hypomagnesemia. Continue to monitor and replete. 7. Mineral bone disorder. The patient has hyperphosphatemia. Continue to monitor. Consider phos binder. 8. Status post sepsis secondary to aspiration pneumonia. The patient is completing antibiotic cour se. 9. Anemia. Continue to monitor H and H levels. 10. Seizure disorder. Continue Keppra. 11. Neuropathy. Continue Elavil. 12. Gastrointestinal and deep venous thrombosis prophylaxis. Continue heparin and PPI. Please note I spent up to 25 minutes [id number] time with the patient discussing code status. The patient is FULL CODE. Dictated By: LANIE MANRIQUEZ/JUNO Conf#: [id number] DID#: [id number]
[2016-12-07 20:00] VITALS: BP 121/74; RESP 18
[2016-12-07] MEDS: SENNA TAB PO PRN (20:52)
[2016-12-07] MEDS: ACETAMINOPHEN 325 MG TAB PO PRN (20:52)
[2016-12-07] MEDS: AMITRIPTYLINE 50 MG TAB PO SCH (21:05)
[2016-12-08] MEDS: PANTOPRAZOLE (EC) 40 MG TAB PO SCH (06:19)
[2016-12-08 07:30] VITALS: BP 115/67; RESP 18
[2016-12-08 07:37] LABS: ADD SCAN DIFF NO
[2016-12-08 07:40] LABS: BASOPHIL # 0.1 10^3/ul (0.0-0.1); BASOPHILS % 0.7 % (0.0-2.0); EOSINOPHILS # 0.2 10^3/ul (0.0-0.5); EOSINOPHILS % 2.2 % (0.0-7.0); HEMATOCRIT 29.9 % (42.0-52.0); HEMOGLOBIN 9.2 g/dl (14.0-18.0); LYMPHOCYTES # 3.2 10^3/ul (0.8-2.9); LYMPHOCYTES % 46.2 % (15.0-51.0); MEAN CORPUSCULAR HEMOGLOBIN 24.9 pg (29.0-33.0); MEAN CORPUSCULAR HGB CONC 30.8 g/dl (32.0-37.0); MEAN CORPUSCULAR VOLUME 80.8 fl (82.0-101.0); MEAN PLATELET VOLUME 10.2 fl (7.4-10.4); MONOCYTE # 0.5 10^3/ul (0.3-0.9); MONOCYTES % 7.5 % (0.0-11.0); NEUTROPHILS % 43.3 % (39.0-77.0); PLATELET COUNT 490 10^3/UL (140-415); RED CELL DISTRIBUTION WIDTH 13.7 % (11.5-14.5); WHITE BLOOD COUNT 6.9 10^3/ul (4.8-10.8)
[2016-12-08 08:02] LABS: CALCIUM 9.9 mg/dl (8.4-10.2); CREATININE 1.05 mg/dl (0.61-1.24); MAGNESIUM 1.3 mg/dl (1.7-2.5); PHOSPHORUS 5.2 mg/dl (2.5-4.9)
[2016-12-08] MEDS: LEVETIRACETAM 750 MG TAB PO SCH ×2 (09:30→20:37)
[2016-12-08] MEDS: DOCUSATE SODIUM 100 MG CAP PO SCH ×2 (09:31→20:36)
[2016-12-08] MEDS: PROPRANOLOL 40 MG TAB PO SCH ×3 (09:31→20:38)
[2016-12-08] MEDS: MINOXIDIL 2.5 MG TAB PO SCH ×2 (09:32→20:38)
[2016-12-08] MEDS: predniSONE 2.5 MG TAB PO SCH (09:32)
[2016-12-08] MEDS: ASPIRIN (EC) 81 MG TAB PO SCH (09:33)
[2016-12-08] MEDS: MYCOPHENOLATE 250 MG CAP PO SCH ×2 (09:33→20:37)
[2016-12-08] MEDS: TACROLIMUS 1 MG CAP PO SCH ×2 (09:33→20:37)
[2016-12-08] MEDS: HEPARIN 5,000 UNIT/0.5 ML VIAL SC SCH ×2 (09:48→20:50)
[2016-12-08] MEDS: HYDROCORTISONE 1% 28.35 GM OINT TOP SCH ×3 (10:05→20:50)
--- NOTE | 2016-12-08 11:19 | PN ---
DATE: 12/08/2016 SUBJECTIVE: The patient is stable, no acute events overnight. No fevers, chills, nausea, vomiting. OBJECTIVE: VITAL SIGNS: Blood pressure 121/74, respiration 18, pulse 89, temperature 99.1. HEENT: Head is normocephalic. NECK: Supple. HEART: Regular rate. LUNGS: Show diminished breath sounds at the base. ABDOMEN: Soft, nontender to palpation without rebound or guarding. EXTREMITIES: Negative for clubbing, cyanosis, or edema. DERMATOLOGIC: No rashes. MUSCULOSKELETAL: No joint effusions. NEUROLOGIC: No change in exam. MEDICATIONS: The patient's medications have been reviewed. LABORATORY DATA: Shows white count 6.9, hemoglobin 9.2, hematocrit 29.9, platelet count is 490. So dium is 141, potassium 4.0, BUN 12, creatinine 1.01, phosphorus 5.2, magnesium 0.3. ASSESSMENT AND PLAN: 1. Subarachnoid hemorrhage status post craniotomy with aneurysm clipping. The patient is currently clinically stable. Continue current blood pressure regimen. Continue physical therapy and occupat ional therapy. Patient to follow up with neurosurgery in outpatient setting. 2. Hypertension. Blood pressure controlled. Continue current blood pressure regimen. 3. End-stage renal disease status post donor renal transplant. The patient's renal functi on is currently at baseline with excellent allograft function. Continue current treatment plan. 4. Renal artery stenosis status post renal artery angioplasty and stenting. Continue to monitor. C ontinue aspirin. 5. Immunosuppression. The patient is on triple therapy, continue current regimen. 6. Hypomagnesemia. Continue to monitor and replete. 7. Mineral bone disorder. The patient is hypophosphatemic. Continue to monitor. Consider phos bind er. 8. Status post sepsis secondary to aspiration pneumonia. The patient has completed antibiotic cour se. 9. Anemia. Continue to monitor hemoglobin and hematocrit levels. 10. Seizure disorder. Continue Keppra. 11. Neuropathy. Continue Elavil. 12. Gastrointestinal and deep venous thrombosis prophylaxis. Continue proton pump inhibitor and he carroll. Dictated By: LANIE DUMONT DO NR/NTS Conf#: [id number] DID#: [id number]
--- NOTE | 2016-12-08 11:40 | CONS ---
Date/Time of Note Date/Time of Note DATE: 12/08/16 TIME: 11:40 Consult Date/Type/Reason Admit Date/Time December 06, 2016 at 20:12 Initial Consult Date Subjective comfortable Objective pulm-cta min assist Vital Signs Date Time Temp Pulse Resp B/P Pulse Ox O2 Delivery O2 Flow Rate FiO2 12/07/16 20:00 99.1 89 18 121/74 96 Intake and Output 12/07/16 12/07/16 12/08/16 15:00 23:00 07:00 Intake Total 960 ml 880 ml Output Total 200 ml Balance 760 ml 880 ml Results/Medications Result Diagram: 12/08/16 0615 12/08/16 0615 Results 24 hrs Laboratory Tests Test 12/08/16 06:15 White Blood Count 6.9 Red Blood Count 3.70 L Hemoglobin 9.2 L Hematocrit 29.9 L Mean Corpuscular Volume 80.8 L Mean Corpuscular Hemoglobin 24.9 L Mean Corpuscular Hemoglobin Concent 30.8 L Red Cell Distribution Width 13.7 Platelet Count 490 H Mean Platelet Volume 10.2 Neutrophils % 43.3 Lymphocytes % 46.2 Monocytes % 7.5 Eosinophils % 2.2 Basophils % 0.7 Nucleated Red Blood Cells % 0.0 Neutrophils # 3.0 Lymphocytes # 3.2 H Monocytes # 0.5 Eosinophils # 0.2 Basophils # 0.1 Nucleated Red Blood Cells # 0.0 Sodium Level 141 Potassium Level 4.0 Chloride Level 110 Carbon Dioxide Level 25 Anion Gap 10 Blood Urea Nitrogen 12 Creatinine 1.05 Glucose Level 82 Calcium Level 9.9 Phosphorus Level 5.2 H Magnesium Level 1.3 L Medications Current Medications Acetaminophen (Tylenol Tab) 650 mg Q6H PRN PO PAIN AND OR ELEVATED TEMP Last administered on 12/07/16 20:52; Admin Dose 650 MG; Start 12/06/16 at 22:00 Amitriptyline HCl (Elavil) 50 mg HS PO Last administered on 12/07/16 21:05; Admin Dose 50 MG; Start 12/07/16 at 21:00 Aspirin (Halfprin) 81 mg DAILY PO Last administered on 12/08/16 09:33; Admin Dose 81 MG; Start 12/07/16 at 09:00 Bisacodyl (Dulcolax Supp) 10 mg DAILY PRN [place] CONSTIPATION; Start 12/06/16 at 22 :00 Docusate Sodium (Colace) 100 mg BID PO Last administered on 12/08/16 09:31; Admin Dose 100 MG; Start 12/06/16 at 22:00 Heparin Sodium (Porcine) (Heparin (5000 Units/0.5 ml)) 5,000 unit BID SC Last administered on 12/08/16 09:48; Admin Dose 5,000 UNIT; Start 12/06/16 at 22:00 Hydrocortisone (Hydrocortisone 1% Oint) 1 applic TID TOP Last administered on 10:05; Admin Dose 1 APPLIC; Start 12/07/16 at 09:00 Hydroxyzine HCl (Atarax) 10 mg Q6H PRN PO ITCHING; Start 12/06/16 at 22:00 Levetiracetam (Keppra) 1,500 mg BID PO Last administered on 12/08/16 09:30; Admin Dose 1,500 MG; Start 12/06/16 at 22:00 Magnesium Hydroxide (Milk Of Mag) 30 ml DAILY PRN PO CONSTIPATION; Start at 22:00 Minoxidil (Loniten) 5 mg BID PO Last administered on 12/08/16 09:32; Admin Dose 5 MG; Start 12/06/16 at 22:00 Pantoprazole (Protonix Tab) 40 mg DAILY@06 PO Last administered on 12/08/16 06: 19; Admin Dose 40 MG; Start 12/07/16 at 06:00 Propranolol HCl (Inderal) 80 mg TID PO Last administered on 12/08/16 09:31; Admin Dose 80 MG; Start 12/07/16 at 09:00 Senna (Senokot) 1 tab HS PRN PO CONSTIPATION Last administered on 12/07/16 20: 52; Admin Dose 1 TAB; Start 12/06/16 at 22:00 Simethicone (Mylicon) 160 mg QID PRN PO DISTENSION/GAS/BLOATING; Start at 22:00 Hydralazine HCl (Apresoline) 100 mg TID PO Last administered on 12/08/16 09:32 ; Admin Dose 100 MG; Start 12/07/16 at 09:00 Prednisone (Prednisone) 7.5 mg DAILY PO Last administered on 12/08/16 09:32; Admin Dose 7.5 MG; Start 12/07/16 at 09:00 Mycophenolate Mofetil (Cellcept) 250 mg BID PO Last administered on 12/08/16 09 :33; Admin Dose 250 MG; Start 12/06/16 at 22:00 Tacrolimus (Prograf) 3 mg BID PO Last administered on 12/08/16 09:33; Admin Dose 3 MG; Start 12/06/16 at 22:00 Psyllium Hydrophilic Mucilloid (Metamucil (Sugar Free)) 1 pkt BID PO ; Start 12/08/16 at 21:00 Assessment/Plan Additional Assessment/Plan rehab-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 Continue rehab program Encephalopathy. Hypertension. Chronic kidney disease with history of allograft. Status post sepsis. Right lower lobe infiltrate. ERMA ROLDAN MD Dec 08, 2016 11:40
[2016-12-08 20:00] VITALS: BP 125/64; RESP 18
[2016-12-08] MEDS: AMITRIPTYLINE 50 MG TAB PO SCH (20:43)
[2016-12-08] MEDS: PSYLLIUM (SUGAR FREE) PACKET PO SCH (22:46)
[2016-12-09] MEDS: PANTOPRAZOLE (EC) 40 MG TAB PO SCH (05:41)
[2016-12-09 07:49] VITALS: BP 128/65; RESP 18
[2016-12-09] MEDS: PSYLLIUM (SUGAR FREE) PACKET PO SCH ×2 (08:49→21:07)
[2016-12-09] MEDS: LEVETIRACETAM 750 MG TAB PO SCH ×2 (08:51→21:09)
[2016-12-09] MEDS: HEPARIN 5,000 UNIT/0.5 ML VIAL SC SCH ×2 (08:51→21:37)
[2016-12-09] MEDS: DOCUSATE SODIUM 100 MG CAP PO SCH ×2 (08:52→21:07)
[2016-12-09] MEDS: TACROLIMUS 1 MG CAP PO SCH ×2 (08:52→21:07)
[2016-12-09] MEDS: MYCOPHENOLATE 250 MG CAP PO SCH ×2 (08:52→21:07)
[2016-12-09] MEDS: MINOXIDIL 2.5 MG TAB PO SCH ×2 (08:52→21:09)
[2016-12-09] MEDS: predniSONE 2.5 MG TAB PO SCH (08:52)
[2016-12-09] MEDS: ASPIRIN (EC) 81 MG TAB PO SCH (08:53)
[2016-12-09] MEDS: PROPRANOLOL 40 MG TAB PO SCH ×3 (08:53→21:08)
[2016-12-09] MEDS: HYDROCORTISONE 1% 28.35 GM OINT TOP SCH ×3 (09:00→21:10)
--- NOTE | 2016-12-09 10:38 | PN ---
DATE: 12/09/2016 SUBJECTIVE: The patient is stable. No events overnight. No fevers, chills, nausea, vomiting. OBJECTIVE: VITAL SIGNS: Blood pressure is 128/65, respirations 18, pulse 81, temperature 98.4. HEENT: Head is normocephalic. NECK: Supple. HEART: Regular rate. LUNGS: Show diminished breath sounds at the bases. ABDOMEN: Soft, nontender to palpation. No rebound or guarding. EXTREMITIES: Negative for clubbing, cyanosis. No edema. DERMATOLOGIC: No rashes. MUSCULOSKELETAL: No joint effusions. NEUROLOGIC: No change in exam. MEDICATIONS: The patient's medications have been reviewed. LABORATORY DATA: Has been reviewed, no new labs. ASSESSMENT AND PLAN: 1. Subarachnoid hemorrhage status post craniotomy with aneurysm clipping. The patient is currently stable. Continue current blood pressure regimen. Continue physical therapy and occupational thera py. Follow up with neurosurgery in outpatient setting. 2. Hypertension. Continue current blood pressure regimen. 3. End-stage renal disease, status post donor renal transplant. The patient's renal allog raft is currently at baseline with excellent function. Continue medical management. 4. Immunosuppression. Continue triple therapy. 5. Renal artery stenosis, status post renal artery angioplasty and stenting of the allograft. Cont inue to monitor. Continue aspirin. 6. Hypomagnesemia. Continue to monitor and replete. 7. Mineral bone disorder. The patient remains hyperphosphatemic. Continue to monitor. Consider p hosphate binders. 8. Anemia. Continue to monitor hemoglobin and hematocrit levels. 9. Status post sepsis secondary to aspiration pneumonia. The patient is completing antibiotic cour se. 10. Seizure disorder. Continue Keppra. 11. Neuropathy. Continue Elavil. 12. Gastrointestinal and deep venous thrombosis prophylaxis. Continue proton pump inhibitor and he carroll. Dictated By: LANIE MANRIQUEZ/JUNO Conf#: [id number] DID#: [id number]
--- NOTE | 2016-12-09 11:39 | CONS ---
Date/Time of Note Date/Time of Note DATE: 12/09/16 TIME: 11:38 Consult Date/Type/Reason Admit Date/Time December 06, 2016 at 20:12 Subjective No new complaints Objective pulm-cta abd-soft Vital Signs Date Time Temp Pulse Resp B/P Pulse Ox O2 Delivery O2 Flow Rate FiO2 12/09/16 07:49 98.4 81 18 128/65 96 Intake and Output 12/08/16 12/08/16 12/09/16 15:00 23:00 07:00 Intake Total 860 ml Output Total 350 ml Balance 860 ml -350 ml Results/Medications Result Diagram: 12/08/16 0615 12/08/16 0615 Medications Current Medications Acetaminophen (Tylenol Tab) 650 mg Q6H PRN PO PAIN AND OR ELEVATED TEMP Last administered on 12/07/16 20:52; Admin Dose 650 MG; Start 12/06/16 at 22:00 Amitriptyline HCl (Elavil) 50 mg HS PO Last administered on 12/08/16 20:43; Admin Dose 50 MG; Start 12/07/16 at 21:00 Aspirin (Halfprin) 81 mg DAILY PO Last administered on 12/09/16 08:53; Admin Dose 81 MG; Start 12/07/16 at 09:00 Bisacodyl (Dulcolax Supp) 10 mg DAILY PRN [place] CONSTIPATION; Start 12/06/16 at 22 :00 Docusate Sodium (Colace) 100 mg BID PO Last administered on 12/09/16 08:52; Admin Dose 100 MG; Start 12/06/16 at 22:00 Heparin Sodium (Porcine) (Heparin (5000 Units/0.5 ml)) 5,000 unit BID SC Last administered on 12/09/16 08:51; Admin Dose 5,000 UNIT; Start 12/06/16 at 22:00 Hydrocortisone (Hydrocortisone 1% Oint) 1 applic TID TOP Last administered on 13:10; Admin Dose 1 APPLIC; Start 12/07/16 at 09:00 Hydroxyzine HCl (Atarax) 10 mg Q6H PRN PO ITCHING Last administered on 20:36; Admin Dose 10 MG; Start 12/06/16 at 22:00 Levetiracetam (Keppra) 1,500 mg BID PO Last administered on 12/09/16 08:51; Admin Dose 1,500 MG; Start 12/06/16 at 22:00 Magnesium Hydroxide (Milk Of Mag) 30 ml DAILY PRN PO CONSTIPATION; Start at 22:00 Minoxidil (Loniten) 5 mg BID PO Last administered on 12/09/16 08:52; Admin Dose 5 MG; Start 12/06/16 at 22:00 Pantoprazole (Protonix Tab) 40 mg DAILY@06 PO Last administered on 12/09/16 05: 41; Admin Dose 40 MG; Start 12/07/16 at 06:00 Propranolol HCl (Inderal) 80 mg TID PO Last administered on 12/09/16 08:53; Admin Dose 80 MG; Start 12/07/16 at 09:00 Senna (Senokot) 1 tab HS PRN PO CONSTIPATION Last administered on 12/07/16 20: 52; Admin Dose 1 TAB; Start 12/06/16 at 22:00 Simethicone (Mylicon) 160 mg QID PRN PO DISTENSION/GAS/BLOATING; Start at 22:00 Hydralazine HCl (Apresoline) 100 mg TID PO Last administered on 12/09/16 08:55 ; Admin Dose 100 MG; Start 12/07/16 at 09:00 Prednisone (Prednisone) 7.5 mg DAILY PO Last administered on 12/09/16 08:52; Admin Dose 7.5 MG; Start 12/07/16 at 09:00 Mycophenolate Mofetil (Cellcept) 250 mg BID PO Last administered on 12/09/16 08 :52; Admin Dose 250 MG; Start 12/06/16 at 22:00 Tacrolimus (Prograf) 3 mg BID PO Last administered on 12/09/16 08:52; Admin Dose 3 MG; Start 12/06/16 at 22:00 Psyllium Hydrophilic Mucilloid (Metamucil (Sugar Free)) 1 pkt BID PO Last administered on 12/09/16 08:49; Admin Dose 1 PKT; Start 12/08/16 at 21:00 Assessment/Plan Additional Assessment/Plan rehab-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 Tolerating rehab program Encephalopathy. Hypertension. Chronic kidney disease with history of allograft. Status post sepsis. Right lower lobe infiltrate. ERMA ROLDAN MD Dec 09, 2016 11:39
[2016-12-09 20:00] VITALS: BP 114/72; RESP 20
[2016-12-09] MEDS: SENNA TAB PO PRN (21:09)
[2016-12-09] MEDS: AMITRIPTYLINE 50 MG TAB PO SCH (21:09)
[2016-12-10] MEDS: PANTOPRAZOLE (EC) 40 MG TAB PO SCH (06:54)
[2016-12-10 07:30] VITALS: BP 115/69; RESP 18
--- NOTE | 2016-12-10 08:11 | CONS ---
Date/Time of Note Date/Time of Note DATE: 12/10/16 TIME: 08:10 Consult Date/Type/Reason Admit Date/Time December 06, 2016 at 20:12 Initial Consult Date Subjective The patient is stable. No events overnight. No fevers, chills, nausea, vomiting. poc reviewed with dr. cronin. tolerates meds and therapies. OBJECTIVE: HEENT: Head is normocephalic. NECK: Supple. HEART: Regular rate. LUNGS: Show diminished breath sounds at the bases. ABDOMEN: Soft, nontender to palpation. No rebound or guarding. EXTREMITIES: Negative for clubbing, cyanosis. No edema. DERMATOLOGIC: No rashes. MUSCULOSKELETAL: No joint effusions. NEUROLOGIC: No change in exam. MEDICATIONS: The patient's medications have been reviewed. Objective Vital Signs Date Time Temp Pulse Resp B/P Pulse Ox O2 Delivery O2 Flow Rate FiO2 12/09/16 20:00 99.0 87 20 114/72 95 Intake and Output 12/09/16 12/09/16 12/10/16 15:00 23:00 07:00 Intake Total 1200 ml 1320 ml 120 ml Output Total 500 ml Balance 700 ml 1320 ml 120 ml Results/Medications Result Diagram: 12/08/1615 12/08/16 0615 Medications Current Medications Acetaminophen (Tylenol Tab) 650 mg Q6H PRN PO PAIN AND OR ELEVATED TEMP Last administered on 12/07/16 20:52; Admin Dose 650 MG; Start 12/06/16 at 22:00 Amitriptyline HCl (Elavil) 50 mg HS PO Last administered on 12/09/16 21:09; Admin Dose 50 MG; Start 12/07/16 at 21:00 Aspirin (Halfprin) 81 mg DAILY PO Last administered on 12/09/16 08:53; Admin Dose 81 MG; Start 12/07/16 at 09:00 Bisacodyl (Dulcolax Supp) 10 mg DAILY PRN [place] CONSTIPATION; Start 12/06/16 at 22 :00 Docusate Sodium (Colace) 100 mg BID PO Last administered on 12/09/16 21:07; Admin Dose 100 MG; Start 12/06/16 at 22:00 Heparin Sodium (Porcine) (Heparin (5000 Units/0.5 ml)) 5,000 unit BID SC Last administered on 12/09/16 21:37; Admin Dose 5,000 UNIT; Start 12/06/16 at 22:00 Hydrocortisone (Hydrocortisone 1% Oint) 1 applic TID TOP Last administered on 21:10; Admin Dose 1 APPLIC; Start 12/07/16 at 09:00 Hydroxyzine HCl (Atarax) 10 mg Q6H PRN PO ITCHING Last administered on 20:36; Admin Dose 10 MG; Start 12/06/16 at 22:00 Levetiracetam (Keppra) 1,500 mg BID PO Last administered on 12/09/16 21:09; Admin Dose 1,500 MG; Start 12/06/16 at 22:00 Magnesium Hydroxide (Milk Of Mag) 30 ml DAILY PRN PO CONSTIPATION; Start at 22:00 Minoxidil (Loniten) 5 mg BID PO Last administered on 12/09/16 21:09; Admin Dose 5 MG; Start 12/06/16 at 22:00 Pantoprazole (Protonix Tab) 40 mg DAILY@06 PO Last administered on 12/10/16 06: 54; Admin Dose 40 MG; Start 12/07/16 at 06:00 Propranolol HCl (Inderal) 80 mg TID PO Last administered on 12/09/16 21:08; Admin Dose 80 MG; Start 12/07/16 at 09:00 Senna (Senokot) 1 tab HS PRN PO CONSTIPATION Last administered on 12/09/16 21: 09; Admin Dose 1 TAB; Start 12/06/16 at 22:00 Simethicone (Mylicon) 160 mg QID PRN PO DISTENSION/GAS/BLOATING; Start at 22:00 Hydralazine HCl (Apresoline) 100 mg TID PO Last administered on 12/09/16 21:08 ; Admin Dose 100 MG; Start 12/07/16 at 09:00 Prednisone (Prednisone) 7.5 mg DAILY PO Last administered on 12/09/16 08:52; Admin Dose 7.5 MG; Start 12/07/16 at 09:00 Mycophenolate Mofetil (Cellcept) 250 mg BID PO Last administered on 12/09/16 21 :07; Admin Dose 250 MG; Start 12/06/16 at 22:00 Tacrolimus (Prograf) 3 mg BID PO Last administered on 12/09/16 21:07; Admin Dose 3 MG; Start 12/06/16 at 22:00 Psyllium Hydrophilic Mucilloid (Metamucil (Sugar Free)) 1 pkt BID PO Last administered on 12/09/16 21:07; Admin Dose 1 PKT; Start 12/08/16 at 21:00 Assessment/Plan Chief Complaint/Hosp Course 1. Subarachnoid hemorrhage status post craniotomy with aneurysm clipping. The patient is currently stable. Continue current blood pressure regimen. Continue physical therapy and occupational therapy. Follow up with neurosurgery in outpatient setting. 2. Hypertension. Continue current blood pressure regimen. 3. End-stage renal disease, status post donor renal transplant. The patient's renal allograft is currently at baseline with excellent function. Continue medical management. 4. Immunosuppression. Continue triple therapy. 5. Renal artery stenosis, status post renal artery angioplasty and stenting of the allograft. Continue to monitor. Continue aspirin. 6. Hypomagnesemia. Continue to monitor and replete. 7. Mineral bone disorder. The patient remains hyperphosphatemic. Continue to monitor. Consider phosphate binders. 8. Anemia. Continue to monitor hemoglobin and hematocrit levels. 9. Status post sepsis secondary to aspiration pneumonia. The patient is completing antibiotic course. 10. Seizure disorder. Continue Keppra. 11. Neuropathy. Continue Elavil. 12. Gastrointestinal and deep venous thrombosis prophylaxis. Continue proton pump inhibitor and heparin. Problems: ANTOINETTE LYLE MD Dec 10, 2016 08:11
[2016-12-10] MEDS: HYDROCORTISONE 1% 28.35 GM OINT TOP SCH ×3 (09:00→21:22)
[2016-12-10] MEDS: PSYLLIUM (SUGAR FREE) PACKET PO SCH ×2 (09:14→21:22)
[2016-12-10] MEDS: MYCOPHENOLATE 250 MG CAP PO SCH ×2 (09:15→21:17)
[2016-12-10] MEDS: ASPIRIN (EC) 81 MG TAB PO SCH (09:15)
[2016-12-10] MEDS: LEVETIRACETAM 750 MG TAB PO SCH ×2 (09:16→21:18)
[2016-12-10] MEDS: MINOXIDIL 2.5 MG TAB PO SCH ×2 (09:16→21:18)
[2016-12-10] MEDS: predniSONE 2.5 MG TAB PO SCH (09:17)
[2016-12-10] MEDS: TACROLIMUS 1 MG CAP PO SCH ×2 (09:17→21:18)
[2016-12-10] MEDS: PROPRANOLOL 40 MG TAB PO SCH ×3 (09:17→21:17)
[2016-12-10] MEDS: DOCUSATE SODIUM 100 MG CAP PO SCH ×2 (09:18→21:17)
[2016-12-10] MEDS: HEPARIN 5,000 UNIT/0.5 ML VIAL SC SCH ×2 (09:23→21:28)
[2016-12-10] MEDS: ACETAMINOPHEN 325 MG TAB PO PRN (16:13)
[2016-12-10 20:13] VITALS: BP 112/63; RESP 17
[2016-12-10] MEDS: AMITRIPTYLINE 50 MG TAB PO SCH (21:17)
[2016-12-10] MEDS: SENNA TAB PO PRN (21:17)
[2016-12-11] MEDS: PANTOPRAZOLE (EC) 40 MG TAB PO SCH (06:41)
--- NOTE | 2016-12-11 07:43 | CONS ---
Date/Time of Note Date/Time of Note DATE: 12/11/16 TIME: 07:43 Consult Date/Type/Reason Admit Date/Time December 06, 2016 at 20:12 Subjective The patient is stable. No events overnight. No fevers, chills, nausea, vomiting. poc reviewed with dr. cronin. tolerates meds and therapies. OBJECTIVE: HEENT: Head is normocephalic. NECK: Supple. HEART: Regular rate. LUNGS: Show diminished breath sounds at the bases. ABDOMEN: Soft, nontender to palpation. No rebound or guarding. EXTREMITIES: Negative for clubbing, cyanosis. No edema. DERMATOLOGIC: No rashes. MUSCULOSKELETAL: No joint effusions. NEUROLOGIC: No change in exam. MEDICATIONS: The patient's medications have been reviewed. Objective Vital Signs Date Time Temp Pulse Resp B/P Pulse Ox O2 Delivery O2 Flow Rate FiO2 12/10/16 20:13 98.7 97 17 112/63 97 Intake and Output 12/10/16 12/10/16 12/11/16 15:00 23:00 07:00 Intake Total 810 ml 350 ml Balance 810 ml 350 ml Results/Medications Result Diagram: 12/08/16 0615 12/08/16 0615 Medications Current Medications Acetaminophen (Tylenol Tab) 650 mg Q6H PRN PO PAIN AND OR ELEVATED TEMP Last administered on 12/10/16 16:13; Admin Dose 650 MG; Start 12/06/16 at 22:00 Amitriptyline HCl (Elavil) 50 mg HS PO Last administered on 12/10/16 21:17; Admin Dose 50 MG; Start 12/07/16 at 21:00 Aspirin (Halfprin) 81 mg DAILY PO Last administered on 12/10/16 09:15; Admin Dose 81 MG; Start 12/07/16 at 09:00 Bisacodyl (Dulcolax Supp) 10 mg DAILY PRN [place] CONSTIPATION; Start 12/06/16 at 22 :00 Docusate Sodium (Colace) 100 mg BID PO Last administered on 12/10/16 21:17; Admin Dose 100 MG; Start 12/06/16 at 22:00 Heparin Sodium (Porcine) (Heparin (5000 Units/0.5 ml)) 5,000 unit BID SC Last administered on 12/10/16 21:28; Admin Dose 5,000 UNIT; Start 12/06/16 at 22:00 Hydrocortisone (Hydrocortisone 1% Oint) 1 applic TID TOP Last administered on 21:22; Admin Dose 1 APPLIC; Start 12/07/16 at 09:00 Hydroxyzine HCl (Atarax) 10 mg Q6H PRN PO ITCHING Last administered on 20:36; Admin Dose 10 MG; Start 12/06/16 at 22:00 Levetiracetam (Keppra) 1,500 mg BID PO Last administered on 12/10/16 21:18; Admin Dose 1,500 MG; Start 12/06/16 at 22:00 Magnesium Hydroxide (Milk Of Mag) 30 ml DAILY PRN PO CONSTIPATION; Start at 22:00 Minoxidil (Loniten) 5 mg BID PO Last administered on 12/10/16 21:18; Admin Dose 5 MG; Start 12/06/16 at 22:00 Pantoprazole (Protonix Tab) 40 mg DAILY@06 PO Last administered on 12/11/16 06: 41; Admin Dose 40 MG; Start 12/07/16 at 06:00 Propranolol HCl (Inderal) 80 mg TID PO Last administered on 12/10/16 21:17; Admin Dose 80 MG; Start 12/07/16 at 09:00 Senna (Senokot) 1 tab HS PRN PO CONSTIPATION Last administered on 12/10/16 21: 17; Admin Dose 1 TAB; Start 12/06/16 at 22:00 Simethicone (Mylicon) 160 mg QID PRN PO DISTENSION/GAS/BLOATING; Start at 22:00 Hydralazine HCl (Apresoline) 100 mg TID PO Last administered on 12/10/16 21:18 ; Admin Dose 100 MG; Start 12/07/16 at 09:00 Prednisone (Prednisone) 7.5 mg DAILY PO Last administered on 12/10/16 09:17; Admin Dose 7.5 MG; Start 12/07/16 at 09:00 Mycophenolate Mofetil (Cellcept) 250 mg BID PO Last administered on 12/10/16 21 :17; Admin Dose 250 MG; Start 12/06/16 at 22:00 Tacrolimus (Prograf) 3 mg BID PO Last administered on 12/10/16 21:18; Admin Dose 3 MG; Start 12/06/16 at 22:00 Psyllium Hydrophilic Mucilloid (Metamucil (Sugar Free)) 1 pkt BID PO Last administered on 12/10/16 21:22; Admin Dose 1 PKT; Start 12/08/16 at 21:00 Assessment/Plan Chief Complaint/Hosp Course 1. Subarachnoid hemorrhage status post craniotomy with aneurysm clipping. The patient is currently stable. Continue current blood pressure regimen. Continue physical therapy and occupational therapy. Follow up with neurosurgery in outpatient setting. 2. Hypertension. Continue current blood pressure regimen. 3. End-stage renal disease, status post donor renal transplant. The patient's renal allograft is currently at baseline with excellent function. Continue medical management. 4. Immunosuppression. Continue triple therapy. 5. Renal artery stenosis, status post renal artery angioplasty and stenting of the allograft. Continue to monitor. Continue aspirin. 6. Hypomagnesemia. Continue to monitor and replete. 7. Mineral bone disorder. The patient remains hyperphosphatemic. Continue to monitor. Consider phosphate binders. 8. Anemia. Continue to monitor hemoglobin and hematocrit levels. 9. Status post sepsis secondary to aspiration pneumonia. The patient is completing antibiotic course. 10. Seizure disorder. Continue Keppra. 11. Neuropathy. Continue Elavil. 12. Gastrointestinal and deep venous thrombosis prophylaxis. Continue proton pump inhibitor and heparin. Problems: ANTOINETTE LYLE MD Dec 11, 2016 07:43
[2016-12-11] MEDS: ASPIRIN (EC) 81 MG TAB PO SCH (09:04)
[2016-12-11] MEDS: DOCUSATE SODIUM 100 MG CAP PO SCH ×2 (09:04→21:10)
[2016-12-11] MEDS: LEVETIRACETAM 750 MG TAB PO SCH ×2 (09:04→21:10)
[2016-12-11] MEDS: MYCOPHENOLATE 250 MG CAP PO SCH ×2 (09:04→21:10)
[2016-12-11] MEDS: HEPARIN 5,000 UNIT/0.5 ML VIAL SC SCH ×2 (09:05→21:50)
[2016-12-11] MEDS: predniSONE 2.5 MG TAB PO SCH (09:06)
[2016-12-11] MEDS: PSYLLIUM (SUGAR FREE) PACKET PO SCH ×2 (09:06→21:12)
[2016-12-11] MEDS: MINOXIDIL 2.5 MG TAB PO SCH ×2 (09:06→21:11)
[2016-12-11] MEDS: HYDROCORTISONE 1% 28.35 GM OINT TOP SCH ×3 (09:07→21:12)
[2016-12-11] MEDS: TACROLIMUS 1 MG CAP PO SCH ×2 (09:07→21:11)
--- NOTE | 2016-12-11 10:47 | CONS ---
Date/Time of Note Date/Time of Note DATE: 12/11/16 TIME: 10:45 Consult Date/Type/Reason Admit Date/Time December 06, 2016 at 20:12 Subjective Comfortable Objective pulm-cta abd-soft sba 150 feet Vital Signs Date Time Temp Pulse Resp B/P Pulse Ox O2 Delivery O2 Flow Rate FiO2 12/10/16 20:13 98.7 97 17 112/63 97 Intake and Output 12/10/16 12/10/16 12/11/16 15:00 23:00 07:00 Intake Total 810 ml 350 ml Balance 810 ml 350 ml Results/Medications Result Diagram: 12/08/16 0615 12/08/16 0615 Medications Current Medications Acetaminophen (Tylenol Tab) 650 mg Q6H PRN PO PAIN AND OR ELEVATED TEMP Last administered on 12/10/16 16:13; Admin Dose 650 MG; Start 12/06/16 at 22:00 Amitriptyline HCl (Elavil) 50 mg HS PO Last administered on 12/10/16 21:17; Admin Dose 50 MG; Start 12/07/16 at 21:00 Aspirin (Halfprin) 81 mg DAILY PO Last administered on 12/11/16 09:04; Admin Dose 81 MG; Start 12/07/16 at 09:00 Bisacodyl (Dulcolax Supp) 10 mg DAILY PRN [place] CONSTIPATION; Start 12/06/16 at 22 :00 Docusate Sodium (Colace) 100 mg BID PO Last administered on 12/11/16 09:04; Admin Dose 100 MG; Start 12/06/16 at 22:00 Heparin Sodium (Porcine) (Heparin (5000 Units/0.5 ml)) 5,000 unit BID SC Last administered on 12/11/16 09:05; Admin Dose 5,000 UNIT; Start 12/06/16 at 22:00 Hydrocortisone (Hydrocortisone 1% Oint) 1 applic TID TOP Last administered on 09:07; Admin Dose 1 APPLIC; Start 12/07/16 at 09:00 Hydroxyzine HCl (Atarax) 10 mg Q6H PRN PO ITCHING Last administered on 20:36; Admin Dose 10 MG; Start 12/06/16 at 22:00 Levetiracetam (Keppra) 1,500 mg BID PO Last administered on 12/11/16 09:04; Admin Dose 1,500 MG; Start 12/06/16 at 22:00 Magnesium Hydroxide (Milk Of Mag) 30 ml DAILY PRN PO CONSTIPATION; Start at 22:00 Minoxidil (Loniten) 5 mg BID PO Last administered on 12/11/16 09:06; Admin Dose 5 MG; Start 12/06/16 at 22:00 Pantoprazole (Protonix Tab) 40 mg DAILY@06 PO Last administered on 12/11/16 06: 41; Admin Dose 40 MG; Start 12/07/16 at 06:00 Propranolol HCl (Inderal) 80 mg TID PO Last administered on 12/10/16 21:17; Admin Dose 80 MG; Start 12/07/16 at 09:00 Senna (Senokot) 1 tab HS PRN PO CONSTIPATION Last administered on 12/10/16 21: 17; Admin Dose 1 TAB; Start 12/06/16 at 22:00 Simethicone (Mylicon) 160 mg QID PRN PO DISTENSION/GAS/BLOATING; Start at 22:00 Hydralazine HCl (Apresoline) 100 mg TID PO Last administered on 12/11/16 09:03 ; Admin Dose 100 MG; Start 12/07/16 at 09:00 Prednisone (Prednisone) 7.5 mg DAILY PO Last administered on 12/11/16 09:06; Admin Dose 7.5 MG; Start 12/07/16 at 09:00 Mycophenolate Mofetil (Cellcept) 250 mg BID PO Last administered on 12/11/16 09 :04; Admin Dose 250 MG; Start 12/06/16 at 22:00 Tacrolimus (Prograf) 3 mg BID PO Last administered on 12/11/16 09:07; Admin Dose 3 MG; Start 12/06/16 at 22:00 Psyllium Hydrophilic Mucilloid (Metamucil (Sugar Free)) 1 pkt BID PO Last administered on 12/11/16 09:06; Admin Dose 1 PKT; Start 12/08/16 at 21:00 Assessment/Plan Additional Assessment/Plan rehab-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 Good progress with rehab program Encephalopathy. Hypertension. Chronic kidney disease with history of allograft. Status post sepsis. Right lower lobe infiltrate. ERMA ROLDAN MD Dec 11, 2016 10:47
[2016-12-11 11:50] VITALS: BP 127/64; PULSE 95; RESP 18
[2016-12-11] MEDS: PROPRANOLOL 40 MG TAB PO SCH ×3 (11:55→21:09)
[2016-12-11 13:17] VITALS: BP 117/63; PULSE 89
[2016-12-11] MEDS: AMITRIPTYLINE 50 MG TAB PO SCH (21:09)
[2016-12-11] MEDS: SENNA TAB PO PRN (21:09)
[2016-12-11 21:16] VITALS: BP 126/79; RESP 17
[2016-12-12] MEDS: PANTOPRAZOLE (EC) 40 MG TAB PO SCH (06:57)
[2016-12-12 07:30] VITALS: BP 119/67; RESP 18
[2016-12-12] MEDS: DOCUSATE SODIUM 100 MG CAP PO SCH ×2 (09:00→21:17)
[2016-12-12] MEDS: predniSONE 2.5 MG TAB PO SCH (09:26)
[2016-12-12] MEDS: ASPIRIN (EC) 81 MG TAB PO SCH (09:26)
[2016-12-12] MEDS: LEVETIRACETAM 750 MG TAB PO SCH ×2 (09:26→21:14)
[2016-12-12] MEDS: PROPRANOLOL 40 MG TAB PO SCH ×3 (09:26→21:14)
[2016-12-12] MEDS: MYCOPHENOLATE 250 MG CAP PO SCH ×2 (09:26→21:15)
[2016-12-12] MEDS: MINOXIDIL 2.5 MG TAB PO SCH ×2 (09:27→21:15)
[2016-12-12] MEDS: HYDROCORTISONE 1% 28.35 GM OINT TOP SCH ×3 (09:27→21:00)
[2016-12-12] MEDS: PSYLLIUM (SUGAR FREE) PACKET PO SCH ×2 (09:27→21:16)
[2016-12-12] MEDS: TACROLIMUS 1 MG CAP PO SCH ×2 (09:27→21:14)
[2016-12-12] MEDS: HEPARIN 5,000 UNIT/0.5 ML VIAL SC SCH ×2 (09:29→21:26)
--- NOTE | 2016-12-12 12:05 | CONS ---
Date/Time of Note Date/Time of Note DATE: 12/12/16 TIME: 12:04 Consult Date/Type/Reason Admit Date/Time December 06, 2016 at 20:12 Objective Vital Signs Date Time Temp Pulse Resp B/P Pulse Ox O2 Delivery O2 Flow Rate FiO2 12/12/16 07:30 98.3 85 18 119/67 95 Intake and Output 12/11/16 12/11/16 12/12/16 15:00 23:00 07:00 Intake Total 570 ml 110 ml Balance 570 ml 110 ml INTERDISCIPLINARY TEAM CONFERENCE BOWEL- Cont BLADDER-Cont SKIN- intact OT- DRESSING-s BATHING-s TOILETING-s PT- BED MOBILITY-s TRANSFERS-s AMBULATION-s 150 feet SPEECH- COGNITION-sba A/P- Interdisciplinary team conference held today. Please see interdisciplinary sheet. Working toward d.c. on 12/13 with post discharge follow up of physical therapy, occupational therapy. Results/Medications Result Diagram: 12/08/16 0615 12/08/16 0615 Medications Current Medications Acetaminophen (Tylenol Tab) 650 mg Q6H PRN PO PAIN AND OR ELEVATED TEMP Last administered on 12/10/16 16:13; Admin Dose 650 MG; Start 12/06/16 at 22:00 Amitriptyline HCl (Elavil) 50 mg HS PO Last administered on 12/11/16 21:09; Admin Dose 50 MG; Start 12/07/16 at 21:00 Aspirin (Halfprin) 81 mg DAILY PO Last administered on 12/12/16 09:26; Admin Dose 81 MG; Start 12/07/16 at 09:00 Bisacodyl (Dulcolax Supp) 10 mg DAILY PRN [place] CONSTIPATION; Start 12/06/16 at 22 :00 Docusate Sodium (Colace) 100 mg BID PO Last administered on 12/11/16 21:10; Admin Dose 100 MG; Start 12/06/16 at 22:00 Heparin Sodium (Porcine) (Heparin (5000 Units/0.5 ml)) 5,000 unit BID SC Last administered on 12/12/16 09:29; Admin Dose 5,000 UNIT; Start 12/06/16 at 22:00 Hydrocortisone (Hydrocortisone 1% Oint) 1 applic TID TOP Last administered on 09:27; Admin Dose 1 APPLIC; Start 12/07/16 at 09:00 Hydroxyzine HCl (Atarax) 10 mg Q6H PRN PO ITCHING Last administered on 20:36; Admin Dose 10 MG; Start 12/06/16 at 22:00 Levetiracetam (Keppra) 1,500 mg BID PO Last administered on 12/12/16 09:26; Admin Dose 1,500 MG; Start 12/06/16 at 22:00 Magnesium Hydroxide (Milk Of Mag) 30 ml DAILY PRN PO CONSTIPATION; Start at 22:00 Minoxidil (Loniten) 5 mg BID PO Last administered on 12/12/16 09:27; Admin Dose 5 MG; Start 12/06/16 at 22:00 Pantoprazole (Protonix Tab) 40 mg DAILY@06 PO Last administered on 12/12/16 06: 57; Admin Dose 40 MG; Start 12/07/16 at 06:00 Propranolol HCl (Inderal) 80 mg TID PO Last administered on 12/12/16 09:26; Admin Dose 80 MG; Start 12/07/16 at 09:00 Senna (Senokot) 1 tab HS PRN PO CONSTIPATION Last administered on 12/11/16 21: 09; Admin Dose 1 TAB; Start 12/06/16 at 22:00 Simethicone (Mylicon) 160 mg QID PRN PO DISTENSION/GAS/BLOATING; Start at 22:00 Hydralazine HCl (Apresoline) 100 mg TID PO Last administered on 12/12/16 09:25 ; Admin Dose 100 MG; Start 12/07/16 at 09:00 Prednisone (Prednisone) 7.5 mg DAILY PO Last administered on 12/12/16 09:26; Admin Dose 7.5 MG; Start 12/07/16 at 09:00 Mycophenolate Mofetil (Cellcept) 250 mg BID PO Last administered on 12/12/16 09 :26; Admin Dose 250 MG; Start 12/06/16 at 22:00 Tacrolimus (Prograf) 3 mg BID PO Last administered on 12/12/16 09:27; Admin Dose 3 MG; Start 12/06/16 at 22:00 Psyllium Hydrophilic Mucilloid (Metamucil (Sugar Free)) 1 pkt BID PO Last administered on 12/12/16t 09:27; Admin Dose 1 PKT; Start 12/08/16 at 21:00 ERMA ROLDAN MD Dec 12, 2016 12:05
--- NOTE | 2016-12-12 12:21 | PN ---
DATE: 12/12/2016 SUBJECTIVE: The patient is stable, no acute events overnight. No fevers, chills, nausea, vomiting. No shortness of breath. OBJECTIVE: VITAL SIGNS: Blood pressure is 126/79, respirations 17, pulse 94, temperature 98.8. HEENT: Head shows history of craniotomy wound, stable. Pupils are reactive to light. NECK: Supple. HEART: Regular rate. LUNGS: Show diminished breath sounds at base. ABDOMEN: Soft, nontender to palpation, without rebound or guarding. EXTREMITIES: Negative for clubbing or cyanosis, no edema. DERMATOLOGIC: No rashes. MUSCULOSKELETAL: No joint effusions. NEUROLOGIC: No change in exam. MEDICATIONS: Have been reviewed. LABORATORY DATA: Has been reviewed. No new labs. ASSESSMENT AND PLAN: 1. Subarachnoid hemorrhage, status post craniotomy with aneurysm clipping. The patient is currentl y stable. Continue current blood pressure regimen. Continue PT, OT. 2. Hypertension. Continue current blood pressure regimen. 3. End-stage renal disease, status post donor renal transplant. The patient has excellent allograft function. Continue current medical management. 4. Immunosuppression. Continue triple therapy. 5. History of renal artery stenosis, status post renal artery angioplasty and stenting of allograft . Continue to monitor. 6. Hypomagnesemia. Continue magnesium oxide. 7. Mineral bone disorder. Continue to monitor calcium and phosphorus levels. 8. Anemia. Continue to monitor hemoglobin and hematocrit levels.. 9. Status post sepsis. 10. Seizure disorder. Continue Keppra. 11. Neuropathy. Continue Elavil. 12. Gastrointestinal and deep venous thrombosis prophylaxis. Continue proton pump inhibitor and he carroll. Dictated By: LANIE MANRIQUEZ/JUNO Conf#: [id number] DID#: [id number]
[2016-12-12 13:30] VITALS: BP 115/67; PULSE 85; RESP 18
[2016-12-12 20:06] VITALS: BP 120/72; RESP 18
[2016-12-12] MEDS: AMITRIPTYLINE 50 MG TAB PO SCH (21:15)
[2016-12-13] MEDS: PANTOPRAZOLE (EC) 40 MG TAB PO SCH (06:55)
[2016-12-13 08:00] VITALS: BP 139/83; PULSE 84; RESP 18
[2016-12-13] MEDS: HYDROCORTISONE 1% 28.35 GM OINT TOP SCH ×2 (09:00→13:04)
[2016-12-13] MEDS: HEPARIN 5,000 UNIT/0.5 ML VIAL SC SCH (09:00)
[2016-12-13] MEDS: PSYLLIUM (SUGAR FREE) PACKET PO SCH (09:01)
[2016-12-13] MEDS: TACROLIMUS 1 MG CAP PO SCH (09:01)
[2016-12-13] MEDS: predniSONE 2.5 MG TAB PO SCH (09:01)
[2016-12-13] MEDS: PROPRANOLOL 40 MG TAB PO SCH ×2 (09:03→13:04)
[2016-12-13] MEDS: MINOXIDIL 2.5 MG TAB PO SCH (09:03)
[2016-12-13] MEDS: LEVETIRACETAM 750 MG TAB PO SCH (09:03)
[2016-12-13] MEDS: MYCOPHENOLATE 250 MG CAP PO SCH (09:04)
[2016-12-13] MEDS: DOCUSATE SODIUM 100 MG CAP PO SCH (09:04)
[2016-12-13] MEDS: ASPIRIN (EC) 81 MG TAB PO SCH (09:04)
--- NOTE | 2016-12-13 12:03 | PN ---
DATE: 12/13/2016 SUBJECTIVE: The patient is stable, no acute events overnight. No fever, chills, nausea, vomiting. OBJECTIVE: VITAL SIGNS: Blood pressure is 139/83, respirations are 18, pulse 84, temperature 98.3. HEENT: Head is normocephalic. NECK: Supple. HEART: Regular rate. LUNGS: Show diminished breath sounds at the base. ABDOMEN: Soft, nontender to palpation. No rebound or guarding. EXTREMITIES: Negative for clubbing, cyanosis, no edema. DERMATOLOGIC: No rashes. MUSCULOSKELETAL: No joint effusions. NEUROLOGIC: No change in exam. MEDICATIONS: Have been reviewed. LABORATORY DATA: Has been reviewed. No new labs. ASSESSMENT AND PLAN: 1. Subarachnoid hemorrhage status post craniotomy with aneurysm clipping. The patient is currently stable. Continue current blood pressure regimen. 2. Hypertension. Continue current treatment plan. 3. End-stage renal disease status post donor renal transplant. The patient has excellent allograft function. Continue medical management. 4. Immunosuppression. Continue triple therapy. 5. History of renal artery stenosis status post angioplasty today with stenting of allograft. 6. Hypomagnesemia. Continue magnesium oxide. 7. Mineral bone disorder. Continue to monitor calcium and phosphorus levels. 8. Anemia. Continue to monitor hemoglobin and hematocrit levels. 9. Seizure disorder. Continue Keppra. 10. Neuropathy. Continue Elavil. 11. Status post sepsis. 12. Gastrointestinal and deep venous thrombosis prophylaxis. Continue proton pump inhibitor and he carroll. Dictated By: LANIE MANRIQUEZ/JUNO Conf#: [id number] DID#: [id number]
--- NOTE | 2016-12-15 09:43 | DS ---
DATE OF ADMISSION: 12/06/2016 DATE OF DISCHARGE: 12/13/2016 ADMISSION DIAGNOSES: 1. Intracerebral artery aneurysm with subarachnoid hemorrhage, status post craniotomy and aneurysm clipping in addition to left-sided weakness. 2. Encephalopathy. 3. Hypertension. 4. Chronic kidney disease with history of allograft. 5. Status post sepsis. 6. Right lower lobe infiltrate. 7. Impairments in self-care, mobility and cognition. DISCHARGE DIAGNOSES: 1. Intracerebral artery aneurysm with subarachnoid hemorrhage, status post craniotomy and aneurysm clipping in addition to left-sided weakness. 2. Encephalopathy. 3. Hypertension. 4. Chronic kidney disease with history of allograft. 5. Status post sepsis. 6. Improvements in self-care, mobility and cognition. HOSPITAL COURSE: The patient was admitted for comprehensive interdisciplinary acute rehab and made excellent functional gains during the course of the stay. The patient progressed from an initial mi nimal assist for self-care and mobility tasks and progressed to the point of supervised to modified independent for all areas of self-care and mobility, including ambulating over 200 feet. The elizabeth t is being discharged home with recommendation of home health physical therapy and occupational therapy assistant apy followup. DISCHARGE MEDICATIONS: Per the medication reconciliation sheet. CONDITION ON DISCHARGE: Stable. Dictated By: ERMA PAZ/JUNO Conf#: [id number] DID#: [id number]
== END 2016-12-13 15:10 | disposition home health service (06) | DRG 91 ==
LOC: VRC 20:12
PROVIDERS: ADMIT Physical Medicine & Rehabilitation; ATTEND Internal Medicine Nephrology
PROC: F07Z5ZZ Bed Mobility Treatment (ICD-10-PCS; principal; 2016-12-06)
PROC: F08Z1ZZ Dressing Techniques Treatment (ICD-10-PCS; 2016-12-06)
DX: I67.1 Cerebral aneurysm, nonruptured (principal); G93.40 Encephalopathy, unspecified; I60.9 Nontraumatic subarachnoid hemorrhage, unspecified; N18.6 End stage renal disease; G81.94 Hemiplegia, unspecified affecting left nondominant side; I12.0 Hypertensive chronic kidney disease with stage 5 chronic kidney disease or end stage renal disease; Z94.0 Kidney transplant status; I70.1 Atherosclerosis of renal artery; E83.42 Hypomagnesemia; D64.9 Anemia, unspecified; G40.909 Epilepsy, unspecified, not intractable, without status epilepticus; G62.9 Polyneuropathy, unspecified; Z79.82 Long term (current) use of aspirin
CPT/HCPCS: 80048; 80053; 81003; 83735; 84100; 85025; 87081; 87086; 92507; 92523; 92610; 97110; 97112; 97116; 97150; 97163; 97167; 97530; 97535; J1644; J7507; J7512; J7517

== ENCOUNTER 2018-06-22 01:41 | Emergency (ER) | END 2018-06-22 05:18 | disposition home or self-care (01) ==

== ENCOUNTER 2018-08-27 12:06 | Emergency (ER) | payer OTHER ==
[~2018-08-27] VITALS: Ht 160 cm; Wt 62.4 kg
[~2018-08-27 12:06] MED LIST changes: +AMIT50TA3 PO; +AMOX1TAB10 PO; +ERGO500013 PO; -HYDR-3671 PO; +HYDR-4011 PO; -HYDR-906 PO; +HYDR100T25 PO; -LABE300T PO; +LABE300T2 PO; +LEVE500T8 PO; +MINO2.5T16 PO; +PANT40TA4 PO
[2018-08-27 12:18] VITALS: Ht 160 cm; Wt 62.4 kg
--- NOTE | 2018-08-27 13:36 | ERD ---
ER Documentation Chief Complaint Chief Complaint Headache HPI The patient is a 23-year-old male, presenting to the ER because of occipital frontal headache that began around 5 AM today, had similar symptoms previously, vomited 3 times of mostly mucus, denies any visual change, denies chest pain, dyspnea, abdominal pain, vomiting, dizzy, diarrhea. 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 Medications Home Meds Active Scripts Ondansetron Hcl* (Zofran*) 4 Mg Tablet, 4 MG PO Q6H PRN for NAUSEA AND OR VOMITING, #30 TAB Prov:IRENE ARRIAGA 09/21/16 Hydrocodone/Acetaminophen ([place] 5-325 Tablet) 1 Each Tablet, 1 EACH PO Q4 for PAIN, #30 TAB Prov:IRENE ARRIAGA 09/21/16 Docusate Sodium* (Colace*) 100 Mg Capsule, 100 MG PO Q24H PRN for CONSTIPATION, #30 CAP Prov:ESTEFANY OTERO NP 03/15/16 Nifedipine* (Procardia XL*) 30 Mg Tabsr, 30 MG PO BID, #180 TAB Prov:NADINE RICO MD 10/05/15 Reported Medications Hydralazine Hcl* (Hydralazine Hcl*) 100 Mg Tablet, 100 MG PO TID TK 1 T PO TID 06/22/18 Pantoprazole* (Pantoprazole*) 40 Mg Tablet.dr, 40 MG PO DAILY for 30 Days, #30 TK 1 T PO QD 06/22/18 Ergocalciferol (Vitamin D2) (VITAMIN D2) 50,000 Unit Capsule, 83592 UNITS PO QMONDAY for 83 Days TAKE 1 TABLET BY MOUTH EVERY Mondays06/22/18 Levetiracetam* (Levetiracetam*) 500 Mg Tablet, 500 MG PO BID for 30 Days, #180 TAB TK 3 TS PO BID 06/22/18 Prednisone* (Prednisone*) 2.5 Mg Tablet, 7.5 MG PO DAILY, TAB 10/01/15 Labetalol Hcl* (Labetalol Hcl*) 300 Mg Tablet, 150 MG PO TID, TAB 10/01/15 Ranitidine Hcl (Ranitidine Hcl) 150 Mg Capsule, 75 MG PO BID, CAP 10/01/15 Mycophenolate Mofetil* (Mycophenolate Mofetil*) 500 Mg Tablet, 500 MG PO DAILY, TAB 10/01/15 Tacrolimus* (Tacrolimus*) 1 Mg Capsule, 1 MG PO Q12, CAP 10/01/15 Discontinued Reported Medications Amitriptyline Hcl* (Amitriptyline Hcl*) 50 Mg Tablet, 50 MG PO QHS for 30 Days, #30 TK 1 T PO QD HS 06/22/18 Minoxidil* (Lonitin*) 2.5 Mg Tab, 5 MG PO DAILY, TAB 06/22/18 Isosorbide Mononitrate* (Isosorbide Mononitrate*) 60 Mg Tab.er.24h, 60 MG PO DAILY, TAB 10/01/15 Discontinued Scripts Ondansetron (Ondansetron Odt) 4 Mg Tab.rapdis, 4 MG PO Q6H PRN for NAUSEA AND/OR VOMITING, #10 TAB Prov:GREG LOMELI MD 08/27/18 Amoxicillin/Potassium Clav (Amox-Clav 875-125 mg Tablet) 875-125 mg Tab, 1 TAB PO BID for 7 Days, #14 TAB Prov:GREG LOMELI MD 06/22/18 Ferrous Sulfate* (Ferrous Sulfate*) 325 Mg Tabec, 325 MG PO DAILY for 30 Days, TAB Prov:ESTEFANY OTERO NP 03/15/16 Ondansetron Hcl* (Zofran*) 8 Mg Tab, 8 MG PO Q6H PRN for NAUSEA AND OR VOMITING, #20 TAB Prov:ESTEFANY OTERO NP 03/15/16 Allergies Allergies: Coded Allergies: No Known Allergy (Unverified , 08/27/18) PMhx/Soc History of Surgery: Yes (craniotomy, clipping of aneurysm, angioplasty R renal artery) Anesthesia Reaction: No Hx Neurological Disorder: Yes (Hydrocephalus, Subarachnoid Hemorrhage, Seizures, ) Hx Respiratory Disorders: Yes (Respiratory Failure, Hypoxia, ) Hx Cardiac Disorders: Yes (HTN, ) Hx Psychiatric Problems: No Hx Alcohol Use: No Hx Substance Use: No Hx Tobacco Use: No Smoking Status: Never smoker Physical Exam Vitals Vital Signs Date Temp Pulse Resp B/P (MAP) Pulse Ox O2 O2 Flow FiO2 Time Delivery Rate 08/27/18 98 18 158/120 99 Room Air 17:28 (133) 08/27/18 90 21 146/100 100 Room Air 16:11 (115) 08/27/18 79 17 160/112 96 Room Air 15:16 (128) 08/27/18 88 17 150/111 100 Room Air 14:13 (124) 08/27/18 80 17 178/128 100 Room Air 13:32 (145) 08/27/18 97.6 86 18 174/119 98 12:18 (137) Physical Exam Const: No acute distress. Head: Atraumatic. Eyes: Normal Conjunctiva. ENT: Normal External Ears, Nose and Mouth. Neck: Full range of motion. No meningismus. Resp: Clear to auscultation bilaterally. Cardio: Regular rate and rhythm. Abd: Soft, non distended, normal bowel sounds, non tender. Skin: No petechiae or rashes. Back: No midline or flank tenderness. Ext: No cyanosis, or edema. Neur: Awake and alert. No focal deficit Psych: Normal Mood and Affect. Result Diagram: 08/27/18 1348 08/27/18 1348 Results 24 hrs Laboratory Tests Test 08/27/18 13:48 White Blood Count 11.2 10^3/ul Red Blood Count 5.60 10^6/ul Hemoglobin 15.5 g/dl Hematocrit 47.8 % Mean Corpuscular Volume 85.4 fl Mean Corpuscular Hemoglobin 27.7 pg Mean Corpuscular Hemoglobin Concent 32.4 g/dl Red Cell Distribution Width 13.3 % Platelet Count 332 10^3/UL Mean Platelet Volume 10.2 fl Immature Granulocytes % 0.400 % Neutrophils % 73.7 % Lymphocytes % 17.2 % Monocytes % 7.4 % Eosinophils % 1.1 % Basophils % 0.2 % Nucleated Red Blood Cells % 0.0 /100WBC Immature Granulocytes # 0.040 10^3/ul Neutrophils # 8.3 10^3/ul Lymphocytes # 1.9 10^3/ul Monocytes # 0.8 10^3/ul Eosinophils # 0.1 10^3/ul Basophils # 0.0 10^3/ul Nucleated Red Blood Cells # 0.0 10^3/ul Prothrombin Time 12.3 Sec Prothrombin Time Ratio 1.0 INR International Normalized Ratio 0.90 Activated Partial Thromboplast Time 31.2 Sec Sodium Level 140 mmol/L Potassium Level 3.5 mmol/L Chloride Level 104 mmol/L Carbon Dioxide Level 28 mmol/L Anion Gap 8 Blood Urea Nitrogen 17 mg/dl Creatinine 0.82 mg/dl Est Glomerular Filtrat Rate mL/min > 60 mL/min Glucose Level 102 mg/dl Calcium Level 9.7 mg/dl Current Medications Medications Dose Sig/Tray Start Time Status Last (Trade) Ordered Route PRN Stop Time Admin Dose Reason Admin Hydralazine 10 mg ONCE ONCE 08/27/18 DC 08/27/18 HCl IV 14:00 13:51 (Apresoline) 08/27/18 14:01 Ondansetron 4 mg ONCE STAT 08/27/18 DC 08/27/18 HCl (Zofran IV 13:43 13:50 Inj) 08/27/18 13:44 Morphine 2 mg ONCE STAT 08/27/18 DC 08/27/18 Sulfate IV 13:43 13:51 (morphine) 08/27/18 13:44 Hydralazine 20 mg ONCE ONCE 08/27/18 DC 08/27/18 HCl IV 15:30 15:59 (Apresoline) 08/27/18 15:31 Morphine 2 mg ONCE STAT 08/27/18 DC 08/27/18 Sulfate IV 16:54 17:12 (morphine) 08/27/18 16:56 Procedures/[place] [address] Radiology Main Line: [phone] DIAGNOSTIC IMAGING REPORT Patient: SUSIE PEREZ : 1995 Age: 23 Sex: M [id number] DOS: 08/27/18 1342 Ordering MD: GREG LOMELI MD Location: E/R Room/Bed: PROCEDURE: CT Brain without. CLINICAL INDICATION: Headache TECHNIQUE: A CT of the brain was performed utilizing axial sections from the skull base through the vertex without contrast. The scan was reviewed in soft tissue brain and high frequency resolution bone algorithm windows. Images were reviewed on a high-resolution PACS workstation. The exam CTDI = 39.46 mGy, and the DLP = 634.23 mGy-cm. One or more of the following dose reduction techniques were used: Automated exposure control, adjustment of the mA and / or kV according to patient size, or use of iterative reconstruction technique. DICOM images are available. COMPARISON: CT BRAIN 06/22/2018 FINDINGS: Again noted are postsurgical changes from right frontal craniotomy. Aneurysm clips are seen in the region of the left parasagittal anterior lumbee of Paulino. The ventricles are normal in size and midline in position. There is no intracranial hemorrhage, midline shift, or mass effect. No abnormal extra-axial fluid collections are identified. The valles-white differentiation is well preserved. The basal cisterns are patent. The posterior fossa is unremarkable. The visualized portions of the orbits are unremarkable. The paranasal sinuses are not included on the examination. The mastoid air cells demonstrate partial opacification bilaterally. No calvarial fracture or abnormality are identified. The soft tissues are unremarkable. IMPRESSION: 1. No acute intracranial abnormality identified. No significant interval change. 2. Stable postsurgical changes from aneurysm clipping. 3. Partial opacification of the mastoid air cells. RPTAT: HH .Estela Fuentes MD, MD Date Time Electronically viewed and signed by .Estela Fuentes MD, MD on 08/27/2018 15:48 .G/ CC: GREG LOMELI MD [phone] MEDICAL MAKING DECISION: The patient is a 23-year-old male, presenting with acute accelerated hypertension, acute headache most likely due to acute accelerated hypertension. He was treated with hydralazine 10 mg IV then later 20 mg IV for acute extra hypertension, Zofran 4 mg IV for nausea, morphine 2 mg IV x2 for pain with good response. He is stable for outpatient follow-up. The differential diagnoses considered include but are not limited to subarachnoid hemorrhage, occult trauma, CVA, meningitis, encephalitis, hypertension, tension, migraine, cluster, narcotic withdrawal, cervical spine disease. Departure Diagnosis: Primary Impression: Accelerated hypertension Condition: Good Comments I discussed the findings with the patient. I advised the patient to follow-up with the primary physician in about 1-2 days, sooner if needed and return if any concern. Disclaimer: Inadvertent spelling and grammatical errors are likely due to EHR/dictation software use and do not reflect on the overall quality of patient care. Also, please note that the electronic time recorded on this note does not necessarily reflect the actual time of the patient encounter. GREG LOMELI MD Aug 27, 2018 13:36
[2018-08-27] MEDS ORDERED: ONDANSETRON 4 MG INJ IV STA (13:43)
[2018-08-27] MEDS ORDERED: morphine 2 MG INJ IV STA ×2 (13:43→16:54)
[2018-08-27] MEDS ORDERED: hydrALAzine 20 MG INJ IV ONE ×2 (14:00→15:30)
[2018-08-27] MEDS ORDERED: ONDA4TAB14 PO (16:53)
[2018-08-27 17:28] VITALS: BP 158/120; PULSE 98; RESP 18
== END 2018-08-27 17:30 | disposition home or self-care (01) ==
LOC: E/R 12:06
DX: I10 Essential (primary) hypertension (principal); Z86.73 Personal history of transient ischemic attack (TIA), and cerebral infarction without residual deficits
CPT/HCPCS: 36415; 70450; 80048; 85025; 85610; 85730; 96374; 96375; 96376; J0360; J2270; J2405; Z7502

== ENCOUNTER 2018-08-27 20:06 | Inpatient (IN) | payer OTHER ==
[~2018-08-27] VITALS: Ht 160 cm; Wt 62.6 kg
[~2018-08-27 20:06] MED LIST changes: +ONDA4TAB14 PO
[2018-08-27 20:21] VITALS: Ht 160 cm; Wt 62.6 kg
[2018-08-28] VITALS (9 sets, daily range): BP systolic 130–153; BP diastolic 86–99; PULSE 68–89; RESP 18–20
[2018-08-28] MEDS ORDERED: hydrALAzine 20 MG INJ IV ONE (01:00)
[2018-08-28] MEDS ORDERED: ONDANSETRON 4 MG INJ IV STA (02:06)
[2018-08-28] MEDS ORDERED: morphine 4 MG/ML VIAL IV STA (02:06)
--- NOTE | 2018-08-28 03:21 | HP ---
Date/Time of Note Date/Time of Note DATE: 08/28/18 TIME: 03:21 Assessment/Plan VTE Prophylaxis SCD applied (from Nsg): Yes Pharmacological prophylaxis: NA/contraindicated Pharm contraindication: low risk/ambulating Lines/Catheters IV Catheter Type (from Nrsg): Saline Lock Assessment/Plan Assessment/Plan 1. Acute headache - resolving - secondary to insomnia and elevated BP - CT scan head negative for acute issues. If symptoms return/persist, may need MRI performed - pain control 2. Malignant HTN - stable - continue home medications 3. h/o renal transplant - continue immunotherapy 4. Insomnia - patient admits to taking prednisone at night and discussed may be contributing to insomnia 5. h/o anuerysm s/p clipping - BP control 6. Disposition - Admit to telemetry for observation and monitoring of BP Result Diagram: 08/28/1811908/28/18119 Results 24hrs Laboratory Tests Test 08/28/18 01:20 White Blood Count 10.6 Red Blood Count 5.33 Hemoglobin 15.0 Hematocrit 46.1 Mean Corpuscular Volume 86.5 Mean Corpuscular Hemoglobin 28.1 L Mean Corpuscular Hemoglobin Concent 32.5 Red Cell Distribution Width 13.2 Platelet Count 328 Mean Platelet Volume 9.5 Immature Granulocytes % 0.400 Neutrophils % 77.4 H Lymphocytes % 16.3 Monocytes % 5.5 Eosinophils % 0.2 Basophils % 0.2 Nucleated Red Blood Cells % 0.0 Immature Granulocytes # 0.040 H Neutrophils # 8.2 H Lymphocytes # 1.7 Monocytes # 0.6 Eosinophils # 0.0 Basophils # 0.0 Nucleated Red Blood Cells # 0.0 Sodium Level 140 Potassium Level 3.9 Chloride Level 99 Carbon Dioxide Level 24 Anion Gap 17 #H Blood Urea Nitrogen 15 Creatinine 0.94 Est Glomerular Filtrat Rate mL/min > 60 Glucose Level 165 Calcium Level 10.1 Total Bilirubin 0.3 Direct Bilirubin 0.00 Indirect Bilirubin 0.3 Aspartate Amino Transf (AST/SGOT) 26 Alanine Aminotransferase (ALT/SGPT) 18 Alkaline Phosphatase 81 Troponin I < 0.012 B-Type Natriuretic Peptide 59 Total Protein 7.9 Albumin 4.3 Globulin 3.60 H Albumin/Globulin Ratio 1.19 HPI/ROS Admit Date/Time Admit Date/Time 08/28/18 0400 Hx of Present Illness 23 yo M with PMH renal failure s/p transplant, malignant HTN, and h/o CVA s/p small vessel aneursym with clipping presented to ED with occipital headache and found with elevated blood pressure reading. He was sent home and returned due to persistence of symptoms. He admits to associated nausea with vomiting. He also states he has not been able to sleep for the past week but no acute issues or changes in lifestyle. He follows with a [facility] in [place]. Patient believes his headache may be associated with recent insomnia. Patient denies chest pain, shortness of breath, palpitation, abdominal pain, neurological deficits or urinary issues. ROS All 12 systems reviewed and pertinent positives as per HPI. All others negative. Constitutional: fatigue; No chills, No nausea Eyes: No discharge Respiratory: No cough, No shortness of breath, No sputum, No wheezing Cardiovascular: lightheadedness; No chest pain, No palpitations Gastrointestinal: nausea, vomiting; No pain, No constipation, No diarrhea Genitourinary: no complaints Musculoskeletal: no complaints Skin: No laceration, No rash Neurologic: headache; No confusion, No dizziness, No syncope Endocrine: no complaints Lymphatic: no complaints Psychological: nl mood/affect Immunologic: no complaints PMH/Family/Social Past Medical History Medical History: hypertension, other (renal failure s/p transplant) Medications Current Medications Docusate Sodium (Colace) 100 mg Q24H PRN PO CONSTIPATION; Start 08/28/18 at 03:30; Status UNV Hydralazine HCl (Apresoline) 100 mg TID PO ; Start 08/28/18 at 09:00; Status UNV Acetaminophen/ Hydrocodone Bitart ([place] (5/325)) 1 tab Q4 PO ; Start 08/28/18 at 05:00; Status UNV Labetalol HCl (Normodyne) 150 mg TID PO ; Start 08/28/18 at 09:00; Status UNV Levetiracetam (Keppra) 500 mg BID PO ; Start 08/28/18 at 09:00; Status UNV Mycophenolate Mofetil (Cellcept) 500 mg DAILY PO ; Start 08/28/18 at 09:00; Status UNV Nifedipine (Procardia Xl) 30 mg BID PO ; Start 08/28/18 at 09:00; Status UNV Ondansetron HCl (Zofran Tab) 4 mg Q6H PRN PO NAUSEA AND/OR VOMITING; Start 08/28/18 at 03:30; Status UNV Pantoprazole (Protonix Tab) 40 mg DAILY PO ; Start 08/28/18 at 09:00; Status UNV Prednisone (Prednisone) 7.5 mg DAILY PO ; Start 08/28/18 at 09:00; Status UNV Ranitidine HCl (Zantac) 75 mg BID PO ; Start 08/28/18 at 09:00; Status UNV Tacrolimus (Prograf) 1 mg Q12 PO ; Start 08/28/18 at 09:00; Status UNV Coded Allergies: No Known Allergy (Unverified , 08/27/18) Past Surgical History Past Surgical Hx: other (renal transplant) Family History Significant Family History: no pertinent family hx Social History Alcohol Use: none Smoking Status: Never smoker Drug Use: none Exam/Review of Systems Vital Signs Vitals Vital Signs Date Temp Pulse Resp B/P (MAP) Pulse Ox O2 O2 Flow FiO2 Time Delivery Rate 08/28/18 99 24 146/109 99 Room Air 02:57 (121) 08/27/18 98.1 20:21 Exam Exam General: Patient is a pleasant male, fatigued, currently lying in bed in no acute distress HEENT: Atraumatic, normocephalic. The pupils are equal, round and reactive. Extraocular motor are intact Neck: Supple with full range of motion. No rigidity or meningismus Chest: Nontender Lungs: Clear to auscultation bilaterally no crackles rales or wheezing Heart: Normal S1-S2, Regular rhythm and rate. no murmurs Abdomen: Soft , nontender, nondistended , bowel sounds are present. No guarding no rebound tenderness , No masses or organomegaly. No costovertebral temporal angle mass Extremities: Normal to inspection, no edema no cyanosis Neurologic: Normal mental status, speech normal, cranial nerves II through XII are intact, motor and sensory are intact, Additional Comments Home medications reviewed PROCEDURE: CT Brain without contrast. CLINICAL INDICATION: Headaches. TECHNIQUE: Noncontrast axial sections were obtained from the skull base to the vertex without IV contrast. Multiplanar reformatted images were constructed. The CTDIvol is 40 mGy and the DLP is 634 mGycm. DICOM images are available. One or more of the following dose reduction techniques were utilized: 1.) Automated exposure control 2.) Adjustment of the mA +/- kV according to patient's size 3.) Use of iterative reconstruction technique. COMPARISON: CT BRAIN 08/27/2018; CT BRAIN 06/22/2018 FINDINGS: The patient is status post right pterional craniotomy. 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 There is no hydrocephalus, midline shift or evidence for acute intracranial hemorrhage. There is no CT evidence for acute territorial infarction. There is a small focus of fat deposition within the right frontal horn, similar to the prior examinations. There is a mildly prominent cisterna magna versus small posterior fossa arachnoid cyst. Visualized paranasal sinuses are clear. There is trace fluid within the mastoid air cells. IMPRESSION: No significant interval change since prior examination. 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 No evidence for acute intracranial hemorrhage. If clinical symptoms persist, consider short-term interval follow-up and/or MRI for further evaluation. RPTAT: HAP Admit-r Robson, Physician Date Time Electronically viewed and signed by Admit-r Robson, Physician on 08/28/2018 03:00 PROCEDURE: CHEST - 1 VIEW CLINICAL INDICATION: 23-year-old male with chest pain. TECHNIQUE: A single frontal AP semi-erect portable view of the chest was performed. The images were reviewed on a PACS workstation. COMPARISON: Chest x-ray June 22, 2018; chest x-ray October 01, 2015. FINDINGS: The cardiomediastinal silhouette has a normal appearance. There is no evidence for an infiltrate. The pulmonary vascularity is within normal limits. There is no evidence for pneumothorax or pneumomediastinum. The osseous structures are intact. IMPRESSION: No evidence for active cardiopulmonary disease. .Ulises Rios MD, Date Time Electronically viewed and signed by .Ulises Rios MD, on 08/28/2018 02:05 CHRIS ELIZABETH MD Aug 28, 2018 03:21
[2018-08-28] MEDS ORDERED: ONDANSETRON 4 MG TAB PO PRN (03:30)
[2018-08-28] MEDS ORDERED: DOCUSATE SODIUM 100 MG CAP PO PRN (03:30)
[2018-08-28] MEDS ORDERED: hydrALAzine 20 MG INJ IV PRN (03:30)
--- NOTE | 2018-08-28 05:00 | ERD ---
ER Documentation Chief Complaint Chief Complaint c/o htn, was seen here this am for same, hx of kidney transplant HPI This is a 23-year-old male with complaints of elevated blood pressure. He was seen earlier today for similar complaints and sent home. He states that his blood pressure started creeping back up despite the fact that he was taking his medications at home. Denies fevers chills nausea vomiting or chest pain. Does have a mild headache, throbbing in nature with no focal neurological complaints. No visual acuity changes. No other current issues. History of renal transplant and single kidney ROS All systems reviewed and are negative except as per history of present illness. Medications Home Meds Active Scripts Ondansetron Hcl* (Zofran*) 4 Mg Tablet, 4 MG PO Q6H PRN for NAUSEA AND OR VOMITING, #30 TAB Prov:IRENE ARRIAGA 09/21/16 Hydrocodone/Acetaminophen ([place] 5-325 Tablet) 1 Each Tablet, 1 EACH PO Q4 for PAIN, #30 TAB Prov:IRENE ARRIAGA 09/21/16 Docusate Sodium* (Colace*) 100 Mg Capsule, 100 MG PO Q24H PRN for CONSTIPATION, #30 CAP Prov:ESTEFANY OTERO NP 03/15/16 Nifedipine* (Procardia XL*) 30 Mg Tabsr, 30 MG PO BID, #180 TAB Prov:NADINE RICO MD 10/05/15 Reported Medications Hydralazine Hcl* (Hydralazine Hcl*) 100 Mg Tablet, 100 MG PO TID TK 1 T PO TID 06/22/18 Pantoprazole* (Pantoprazole*) 40 Mg Tablet.dr, 40 MG PO DAILY for 30 Days, #30 TK 1 T PO QD 06/22/18 Ergocalciferol (Vitamin D2) (VITAMIN D2) 50,000 Unit Capsule, 94360 UNITS PO QMONDAY for 83 Days TAKE 1 TABLET BY MOUTH EVERY Mondays06/22/18 Levetiracetam* (Levetiracetam*) 500 Mg Tablet, 500 MG PO BID for 30 Days, #180 TAB TK 3 TS PO BID 06/22/18 Prednisone* (Prednisone*) 2.5 Mg Tablet, 7.5 MG PO DAILY, TAB 10/01/15 Labetalol Hcl* (Labetalol Hcl*) 300 Mg Tablet, 150 MG PO TID, TAB 10/01/15 Ranitidine Hcl (Ranitidine Hcl) 150 Mg Capsule, 75 MG PO BID, CAP 10/01/15 Mycophenolate Mofetil* (Mycophenolate Mofetil*) 500 Mg Tablet, 500 MG PO DAILY, TAB 10/01/15 Tacrolimus* (Tacrolimus*) 1 Mg Capsule, 1 MG PO Q12, CAP 10/01/15 Discontinued Reported Medications Amitriptyline Hcl* (Amitriptyline Hcl*) 50 Mg Tablet, 50 MG PO QHS for 30 Days, #30 TK 1 T PO QD HS 06/22/18 Minoxidil* (Lonitin*) 2.5 Mg Tab, 5 MG PO DAILY, TAB 06/22/18 Isosorbide Mononitrate* (Isosorbide Mononitrate*) 60 Mg Tab.er.24h, 60 MG PO DAILY, TAB 10/01/15 Discontinued Scripts Ondansetron (Ondansetron Odt) 4 Mg Tab.rapdis, 4 MG PO Q6H PRN for NAUSEA AND/OR VOMITING, #10 TAB Prov:GREG LOMELI MD 08/27/18 Amoxicillin/Potassium Clav (Amox-Clav 875-125 mg Tablet) 875-125 mg Tab, 1 TAB PO BID for 7 Days, #14 TAB Prov:GREG LOMELI MD 06/22/18 Ferrous Sulfate* (Ferrous Sulfate*) 325 Mg Tabec, 325 MG PO DAILY for 30 Days, TAB Prov:ESTEFANY OTERO NP 03/15/16 Ondansetron Hcl* (Zofran*) 8 Mg Tab, 8 MG PO Q6H PRN for NAUSEA AND OR VOMITING, #20 TAB Prov:ESTEFANY OTERO V. C.O.D. AUDIT CLERK 03/15/16 Allergies Allergies: Coded Allergies: No Known Allergy (Unverified , 08/27/18) PMhx/Soc History of Surgery: Yes (craniotomy, clipping of aneurysm, angioplasty R renal artery) Anesthesia Reaction: No Hx Neurological Disorder: Yes (Hydrocephalus, Subarachnoid Hemorrhage, Seiz ures, ) Hx Respiratory Disorders: Yes (Respiratory Failure, Hypoxia, ) Hx Cardiac Disorders: Yes (HTN, ) Hx Psychiatric Problems: No Hx Miscellaneous Medical Probl: Yes (Immunosuppression Anemia, KIDNEY TRANSPL ANT ) Hx Alcohol Use: No Hx Substance Use: No Hx Tobacco Use: No Smoking Status: Never smoker Physical Exam Vitals Vital Signs Date Temp Pulse Resp B/P (MAP) Pulse Ox O2 O2 Flow FiO2 Time Delivery Rate 08/28/18 98.7 98 18 131/101 96 Room Air 04:41 (111) 08/28/18 99 24 146/109 99 Room Air 02:57 (121) 08/28/18 99 18 159/113 98 Room Air 02:21 (128) 08/28/18 104 22 168/118 100 Room Air 00:45 (135) 08/27/18 98.1 108 20 172/120 100 20:21 (137) Physical Exam Const: No acute distress Head: Atraumatic Eyes: Normal Conjunctiva ENT: Normal External Ears, Nose and Mouth. Neck: Full range of motion. No meningismus. Resp: Clear to auscultation bilaterally Cardio: Regular rate and rhythm, no murmurs Abd: Soft, non tender, non distended. Normal bowel sounds Skin: No petechiae or rashes Back: No midline or flank tenderness Ext: No cyanosis, or edema Neur: Awake and alert Psych: Normal Mood and Affect Result Diagram: 08/28/18 0120 08/28/18 0120 Results 24 hrs Laboratory Tests Test 08/28/18 01:20 White Blood Count 10.6 10^3/ul Red Blood Count 5.33 10^6/ul Hemoglobin 15.0 g/dl Hematocrit 46.1 % Mean Corpuscular Volume 86.5 fl Mean Corpuscular Hemoglobin 28.1 pg Mean Corpuscular Hemoglobin Concent 32.5 g/dl Red Cell Distribution Width 13.2 % Platelet Count 328 10^3/UL Mean Platelet Volume 9.5 fl Immature Granulocytes % 0.400 % Neutrophils % 77.4 % Lymphocytes % 16.3 % Monocytes % 5.5 % Eosinophils % 0.2 % Basophils % 0.2 % Nucleated Red Blood Cells % 0.0 /100WBC Immature Granulocytes # 0.040 10^3/ul Neutrophils # 8.2 10^3/ul Lymphocytes # 1.7 10^3/ul Monocytes # 0.6 10^3/ul Eosinophils # 0.0 10^3/ul Basophils # 0.0 10^3/ul Nucleated Red Blood Cells # 0.0 10^3/ul Sodium Level 140 mmol/L Potassium Level 3.9 mmol/L Chloride Level 99 mmol/L Carbon Dioxide Level 24 mmol/L Anion Gap 17 Blood Urea Nitrogen 15 mg/dl Creatinine 0.94 mg/dl Est Glomerular Filtrat Rate mL/min > 60 mL/min Glucose Level 165 mg/dl Calcium Level 10.1 mg/dl Total Bilirubin 0.3 mg/dl Direct Bilirubin 0.00 mg/dl Indirect Bilirubin 0.3 mg/dl Aspartate Amino Transf (AST/SGOT) 26 IU/L Alanine Aminotransferase (ALT/SGPT) 18 IU/L Alkaline Phosphatase 81 IU/L Troponin I < 0.012 ng/ml B-Type Natriuretic Peptide 59 PG/ML Total Protein 7.9 g/dl Albumin 4.3 g/dl Globulin 3.60 g/dl Albumin/Globulin Ratio 1.19 Current Medications Medications Dose Sig/Tray Start Time Status Last (Trade) Ordered Route PRN Stop Time Admin Dose Reason Admin Hydralazine 20 mg ONCE ONCE 08/28/18 DC 08/28/18 HCl IV 01:00 01:18 (Apresoline) 08/28/18 01:01 Morphine 4 mg ONCE STAT 08/28/18 DC 08/28/18 Sulfate IV 02:06 02:18 (morphine) 08/28/18 02:07 Ondansetron 4 mg ONCE STAT 08/28/18 DC 08/28/18 HCl (Zofran IV 02:06 02:18 Inj) 08/28/18 02:07 Docusate 100 mg Q24H PRN 08/28/18 Sodium PO 03:30 (Colace) CONSTIPATION Hydralazine 100 mg TID PO 08/28/18 HCl 09:00 (Apresoline) 1 tab Q4H PRN 08/28/18 Acetaminophen PO PAIN 05:00 / Hydrocodone Bitart ([place] (5/325)) Labetalol 150 mg TID PO 08/28/18 HCl 09:00 (Normodyne) 500 mg BID PO 08/28/18 Levetiracetam 09:00 (Keppra) 500 mg DAILY PO 08/28/18 Mycophenolate 09:00 Mofetil (Cellcept) Nifedipine 30 mg BID PO 08/28/18 (Procardia 09:00 Xl) Ondansetron 4 mg Q6H PRN 08/28/18 HCl (Zofran PO NAUSEA 03:30 Tab) AND/OR VOMITING 40 mg DAILY@0600 08/28/18 Pantoprazole PO 06:00 (Protonix Tab) Prednisone 7.5 mg DAILY PO 08/28/18 (Prednisone) 09:00 Ranitidine 75 mg BID PO 08/28/18 HCl 09:00 (Zantac) Tacrolimus 1 mg Q12 PO 08/28/18 (Prograf) 09:00 Hydralazine 10 mg Q4H PRN 08/28/18 HCl IV SBP >170 03:30 (Apresoline) Procedures/MDM EKG: Rate/Rhythm: [Normal Sinus Rhythm] QRS, ST, T-waves: [No changes consistent w/ acute ischemia] Impression: [No evidence of ischemia or arrhythmia] Chest X-ray 1V Interpreted by me: Soft Tissue: No acute abnormalities Bones: No acute abnormalities Mediastinum/Cardiac Silhouette/Lungs: [No acute abnormalities] Medical decision makin-year-old male with a history of renal transplant with severely elevated blood pressure. Given his continued failure of outpatient management, I feel the patient is to be admitted for further evaluation and management. Dr. Davidson of the hospitalist team is been made aware and is kindly accepted the patient to her service. Departure Diagnosis: Primary Impression: Hypertensive crisis Condition: Serious FRANNIE LARA Aug 28, 2018 05:00
[2018-08-28] MEDS: PANTOPRAZOLE (EC) 40 MG TAB PO SCH (06:16)
[2018-08-28] MEDS: HYDROCODONE/APAP (5/325) TAB PO PRN ×3 (08:31→20:58)
--- NOTE | 2018-08-28 10:20 | PN ---
Date/Time of Note Date/Time of Note DATE: 08/28/18 TIME: 10:18 Assessment/Plan VTE Prophylaxis SCD applied (from Nsg): Yes Pharmacological prophylaxis: other Lines/Catheters IV Catheter Type (from Nrsg): Saline Lock Urinary Cath still in place: No Assessment/Plan Hospital Course Assessment/Plan: 23-year-old male presents with: 1. Acute headache- resolving-likely secondary to insomnia and elevated BP- CT scan head negative for acute issues. If symptoms return/persist, may need MRI performed -Monitor, continue pain control 2. Malignant HTN- stable now - continue home medications, monitor blood pressure carefully 3. h/o renal transplant - continue immunotherapy 4. Insomnia- patient admits to taking prednisone at night and discussed may be contributing to insomnia -Monitor for 5. h/o anuerysm s/p clipping. Head CT results reviewed, no acute findings -Monitor, continue BP control 6. Disposition -Likely home in 24 hours if his headache symptoms are controlled and his blood pressure is stable. Result Diagram: 08/28/18 0120 08/28/18 0120 Results 24hrs Laboratory Tests Test 08/28/18 01:20 White Blood Count 10.6 Red Blood Count 5.33 Hemoglobin 15.0 Hematocrit 46.1 Mean Corpuscular Volume 86.5 Mean Corpuscular Hemoglobin 28.1 L Mean Corpuscular Hemoglobin Concent 32.5 Red Cell Distribution Width 13.2 Platelet Count 328 Mean Platelet Volume 9.5 Immature Granulocytes % 0.400 Neutrophils % 77.4 H Lymphocytes % 16.3 Monocytes % 5.5 Eosinophils % 0.2 Basophils % 0.2 Nucleated Red Blood Cells % 0.0 Immature Granulocytes # 0.040 H Neutrophils # 8.2 H Lymphocytes # 1.7 Monocytes # 0.6 Eosinophils # 0.0 Basophils # 0.0 Nucleated Red Blood Cells # 0.0 Sodium Level 140 Potassium Level 3.9 Chloride Level 99 Carbon Dioxide Level 24 Anion Gap 17 #H Blood Urea Nitrogen 15 Creatinine 0.94 Est Glomerular Filtrat Rate mL/min > 60 Glucose Level 165 Calcium Level 10.1 Total Bilirubin 0.3 Direct Bilirubin 0.00 Indirect Bilirubin 0.3 Aspartate Amino Transf (AST/SGOT) 26 Alanine Aminotransferase (ALT/SGPT) 18 Alkaline Phosphatase 81 Troponin I < 0.012 B-Type Natriuretic Peptide 59 Total Protein 7.9 Albumin 4.3 Globulin 3.60 H Albumin/Globulin Ratio 1.19 Exam/Review of Systems Exam Vitals Vital Signs Date Temp Pulse Resp B/P (MAP) Pulse Ox O2 O2 Flow FiO2 Time Delivery Rate 08/28/18 76 09:03 08/28/18 98.4 18 138/92 96 Room Air 07:19 (107) Results Results 24hrs Laboratory Tests Test 08/28/18 01:20 White Blood Count 10.6 Red Blood Count 5.33 Hemoglobin 15.0 Hematocrit 46.1 Mean Corpuscular Volume 86.5 Mean Corpuscular Hemoglobin 28.1 L Mean Corpuscular Hemoglobin Concent 32.5 Red Cell Distribution Width 13.2 Platelet Count 328 Mean Platelet Volume 9.5 Immature Granulocytes % 0.400 Neutrophils % 77.4 H Lymphocytes % 16.3 Monocytes % 5.5 Eosinophils % 0.2 Basophils % 0.2 Nucleated Red Blood Cells % 0.0 Immature Granulocytes # 0.040 H Neutrophils # 8.2 H Lymphocytes # 1.7 Monocytes # 0.6 Eosinophils # 0.0 Basophils # 0.0 Nucleated Red Blood Cells # 0.0 Sodium Level 140 Potassium Level 3.9 Chloride Level 99 Carbon Dioxide Level 24 Anion Gap 17 #H Blood Urea Nitrogen 15 Creatinine 0.94 Est Glomerular Filtrat Rate mL/min > 60 Glucose Level 165 Calcium Level 10.1 Total Bilirubin 0.3 Direct Bilirubin 0.00 Indirect Bilirubin 0.3 Aspartate Amino Transf (AST/SGOT) 26 Alanine Aminotransferase (ALT/SGPT) 18 Alkaline Phosphatase 81 Troponin I < 0.012 B-Type Natriuretic Peptide 59 Total Protein 7.9 Albumin 4.3 Globulin 3.60 H Albumin/Globulin Ratio 1.19 Medications Medication Current Medications Docusate Sodium (Colace) 100 mg Q24H PRN PO CONSTIPATION; Start 08/28/18 at 03:30 Hydralazine HCl (Apresoline) 100 mg TID PO ; Start 08/28/18 at 09:00 Acetaminophen/ Hydrocodone Bitart ([place] (5/325)) 1 tab Q4H PRN PO PAIN Last administered on 08/28/18at 08:31; Admin Dose 1 TAB; Start 08/28/18 at 05:00 Labetalol HCl (Normodyne) 150 mg TID PO ; Start 08/28/18 at 09:00 Levetiracetam (Keppra) 500 mg BID PO ; Start 08/28/18 at 09:00 Mycophenolate Mofetil (Cellcept) 500 mg DAILY PO ; Start 08/28/18 at 09:00 Nifedipine (Procardia Xl) 30 mg BID PO ; Start 08/28/18 at 09:00 Ondansetron HCl (Zofran Tab) 4 mg Q6H PRN PO NAUSEA AND/OR VOMITING; Start at 03:30 Pantoprazole (Protonix Tab) 40 mg DAILY@0600 PO Last administered on 08/28/18at 06:16; Admin Dose 40 MG; Start 08/28/18 at 06:00 Prednisone (Prednisone) 7.5 mg DAILY PO ; Start 08/28/18 at 09:00 Ranitidine HCl (Zantac) 75 mg BID PO ; Start 08/28/18 at 09:00 Tacrolimus (Prograf) 1 mg Q12 PO ; Start 08/28/18 at 09:00 Hydralazine HCl (Apresoline) 10 mg Q4H PRN IV SBP >170; Start 08/28/18 at 03:30 ANETA JOE Aug 28, 2018 10:20
[2018-08-28] MEDS: NIFEdipine (XL) 30 MG TAB PO SCH ×2 (10:40→20:53)
[2018-08-28] MEDS: TACROLIMUS 1 MG CAP PO SCH ×2 (10:40→20:53)
[2018-08-28] MEDS: MYCOPHENOLATE 250 MG CAP PO SCH (10:40)
[2018-08-28] MEDS: LEVETIRACETAM 500 MG TAB PO SCH ×2 (10:41→20:57)
[2018-08-28] MEDS: RANITIDINE 150 MG TAB PO SCH ×2 (10:41→20:54)
[2018-08-28] MEDS: LABETALOL 100 MG TAB PO SCH ×3 (10:46→20:54)
[2018-08-28] MEDS: predniSONE 2.5 MG TAB PO SCH (10:47)
[2018-08-28] MEDS ORDERED: ZOLPIDEM 5 MG TAB PO PRN (18:30)
[2018-08-29] VITALS (8 sets, daily range): BP systolic 125–136; BP diastolic 83–92; PULSE 80–102; RESP 17–20
[2018-08-29] MEDS: PANTOPRAZOLE (EC) 40 MG TAB PO SCH (06:24)
[2018-08-29] MEDS: RANITIDINE 150 MG TAB PO SCH (08:46)
[2018-08-29] MEDS: LEVETIRACETAM 500 MG TAB PO SCH (08:46)
[2018-08-29] MEDS: LABETALOL 100 MG TAB PO SCH ×2 (08:47→12:22)
[2018-08-29] MEDS: predniSONE 2.5 MG TAB PO SCH (08:47)
[2018-08-29] MEDS: NIFEdipine (XL) 30 MG TAB PO SCH (08:48)
[2018-08-29] MEDS: TACROLIMUS 1 MG CAP PO SCH (08:48)
--- NOTE | 2018-08-29 11:47 | PN ---
Date/Time of Note Date/Time of Note DATE: 08/29/18 TIME: 11:45 Assessment/Plan VTE Prophylaxis Risk score (from Nsg)>0 risk: 0 SCD applied (from Nsg): Yes Pharmacological prophylaxis: NA/contraindicated Pharm contraindication: low risk/ambulating Lines/Catheters IV Catheter Type (from Nrsg): Saline Lock Urinary Cath still in place: No Assessment/Plan Assessment/Plan 1. Acute headache- resolved - secondary to insomnia and elevated BP - CT scan head negative for acute issues - pain control 2. Malignant HTN - stable - continue home medications 3. h/o renal transplant - continue immunotherapy 4. Insomnia - patient admits to taking prednisone at night and discussed may be contributing to insomnia 5. h/o aneurysm s/p clipping - BP control 6. Disposition - Medically stable for discharge Result Diagram: 08/28/18 01208/28/18 012 Subjective 24 Hr Interval Summary Free Text/Dictation Patient is doing well and denies any acute issues. No overnight events. Exam/Review of Systems Exam Vitals Vital Signs Date Temp Pulse Resp B/P (MAP) Pulse Ox O2 O2 Flow FiO2 Time Delivery Rate 08/29/18 93 08:40 08/29/18 98.6 20 125/85 94 Room Air 07:22 (98) Intake and Output 08/28/18 08/28/18 08/29/18 1414:59 22:59 06:59 IntakeIntake Total 600 ml 700 ml BalanceBalance 600 ml 700 ml Exam General: Patient is a pleasant male, fatigued, currently lying in bed in no acute distress Neck: Supple Chest: Nontender Lungs: Clear to auscultation bilaterally no crackles rales or wheezing Heart: Normal S1-S2, Regular rhythm and rate. no murmurs Abdomen: Soft , nontender, nondistended , bowel sounds are present. No guarding no rebound tenderness Medications Medication Current Medications Docusate Sodium (Colace) 100 mg Q24H PRN PO CONSTIPATION; Start 08/28/18 at 03:30 Hydralazine HCl (Apresoline) 100 mg TID PO Last administered on 08/29/18at 08:47; Admin Dose 100 MG; Start 08/28/18 at 09:00 Acetaminophen/ Hydrocodone Bitart ([place] (5/325)) 1 tab Q4H PRN PO PAIN Last administered on 08/28/18 20:58; Admin Dose 1 TAB; Start 08/28/18 at 05:00 Labetalol HCl (Normodyne) 150 mg TID PO Last administered on 08/29/18 08:47; Admin Dose 150 MG; Start 08/28/18 at 09:00 Levetiracetam (Keppra) 500 mg BID PO Last administered on 08/29/18 08:46; Admin Dose 500 MG; Start 08/28/18 at 09:00 Mycophenolate Mofetil (Cellcept) 500 mg DAILY PO Last administered on 08/28/18 10:40; Admin Dose 500 MG; Start 08/28/18 at 09:00 Nifedipine (Procardia Xl) 30 mg BID PO Last administered on 08/29/18 08:48; Admin Dose 30 MG; Start 08/28/18 at 09:00 Ondansetron HCl (Zofran Tab) 4 mg Q6H PRN PO NAUSEA AND/OR VOMITING; Start 08/28/18 at 03:30 Pantoprazole (Protonix Tab) 40 mg DAILY@0600 PO Last administered on 08/29/18 06:24; Admin Dose 40 MG; Start 08/28/18 at 06:00 Prednisone (Prednisone) 7.5 mg DAILY PO Last administered on 08/29/18 08:47; Admin Dose 7.5 MG; Start 08/28/18 at 09:00 Ranitidine HCl (Zantac) 75 mg BID PO Last administered on 08/29/18 08:46; Admin Dose 75 MG; Start 08/28/18 at 09:00 Tacrolimus (Prograf) 1 mg Q12 PO Last administered on 08/29/18 08:48; Admin Dose 1 MG; Start 08/28/18 at 09:00 Hydralazine HCl (Apresoline) 10 mg Q4H PRN IV SBP >170; Start 08/28/18 at 03:30 Zolpidem Tartrate (Ambien) 2.5 mg HS PRN PO INSOMNIA Last administered on 08/28/18 21:31; Admin Dose 2.5 MG; Start 08/28/18 at 18:30 CHRIS ELIZABETH MD Aug 29, 2018 11:47
--- NOTE | 2018-08-29 11:49 | PDOCDIS ---
Discharge Instructions DIAGNOSIS Discharge Diagnosis 1. Acute headache- resolved 2. Malignant HTN 3. h/o renal transplant 4. Insomnia 5. h/o aneurysm s/p clipping CONDITION [id number] Patient Condition: [id number] Stable HOME CARE INSTRUCTIONS: [id number] Diet Instructions: [id number] Low Fat /Cholesterol FOLLOW UP/APPOINTMENTS Follow-up Plan 1. Follow up with your primary care physician in 1 week 2. Follow up with your client relation specialist as previously scheduled 3. Continue all medications as prescribed 4. Try and get rest since seems to be affecting your blood pressure which is causing your headaches 5. If symptoms return or worsen, go to your nearest emergency department CHRIS ELIZABETH MD Aug 29, 2018 11:49
[2018-08-29] MEDS: MYCOPHENOLATE 250 MG CAP PO SCH (12:22)
[2018-08-29] MEDS: HYDROCODONE/APAP (5/325) TAB PO PRN (15:22)
--- NOTE | 2018-08-29 19:59 | DS ---
Date/Time of Note Date/Time of Note DATE: 08/29/18 TIME: 19:58 Discharge Summary Admission/Discharge Info Admit Date/Time Aug 28, 2018 at 03:31 Discharge Date/Time Aug 29, 2018 at 16:37 Discharge Diagnosis 1. Acute headache- resolved 2. Malignant HTN 3. h/o renal transplant 4. Insomnia 5. h/o aneurysm s/p clipping Patient Condition: Stable Procedures PROCEDURE: CT Brain without contrast. CLINICAL INDICATION: Headaches. TECHNIQUE: Noncontrast axial sections were obtained from the skull base to the vertex without IV contrast. Multiplanar reformatted images were constructed. The CTDIvol is 40 mGy and the DLP is 634 mGycm. DICOM images are available. One or more of the following dose reduction techniques were utilized: 1.) Automated exposure control 2.) Adjustment of the mA +/- kV according to patient's size 3.) Use of iterative reconstruction technique. COMPARISON: CT BRAIN 08/27/2018; CT BRAIN 06/22/2018 FINDINGS: The patient is status post right pterional craniotomy. 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 There is no hydrocephalus, midline shift or evidence for acute intracranial hemorrhage. There is no CT evidence for acute territorial infarction. There is a small focus of fat deposition within the right frontal horn, similar to the prior examinations. There is a mildly prominent cisterna magna versus small posterior fossa arachnoid cyst. Visualized paranasal sinuses are clear. There is trace fluid within the mastoid air cells. IMPRESSION: No significant interval change since prior examination. 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 No evidence for acute intracranial hemorrhage. If clinical symptoms persist, consider short-term interval follow-up and/or MRI for further evaluation. RPTAT: HAP Admit-r Robson, Physician Date Time Electronically viewed and signed by it-r Robson, Physician on 08/28/2018 03:00 PROCEDURE: CHEST - 1 VIEW CLINICAL INDICATION: 23-year-old male with chest pain. TECHNIQUE: A single frontal AP semi-erect portable view of the chest was performed. The images were reviewed on a PACS workstation. COMPARISON: Chest x-ray June 22, 2018; chest x-ray October 01, 2015. FINDINGS: The cardiomediastinal silhouette has a normal appearance. There is no evidence for an infiltrate. The pulmonary vascularity is within normal limits. There is no evidence for pneumothorax or pneumomediastinum. The osseous structures are intact. IMPRESSION: No evidence for active cardiopulmonary disease. 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 He was sent home and returned due to persistence of symptoms. He admits to associated nausea with vomiting. He also states he has not been able to sleep for the past week but no acute issues or changes in lifestyle. He follows with a [facility] in [place]. Patient believes his headache may be associated with recent insomnia. Patient denies chest pain, shortness of breath, palpitation, abdominal pain, neur ological deficits or urinary issues. Hospital Course Patient was admitted for observation and blood pressure remained stable during course of hospitalization. Patient was able to get some sleep and headache resolved. During course of hospital stay, patients presenting symptoms resolved and BP remained stable while on home medications. He was tolerating PO intake with no acute complication during hospitalization. Patient was discharged home in good condition. Home Meds Active Scripts Ondansetron Hcl* (Zofran*) 4 Mg Tablet, 4 MG PO Q6H PRN for NAUSEA AND OR VOMITING, #30 TAB Prov:IRENE ARRIAGA 09/21/16 Hydrocodone/Acetaminophen ([place] 5-325 Tablet) 1 Each Tablet, 1 EACH PO Q4 for PAIN, #30 TAB Prov:IRENE ARRIAGA 09/21/16 Docusate Sodium* (Colace*) 100 Mg Capsule, 100 MG PO Q24H PRN for CONSTIPATION, #30 CAP Prov:ESTEFANY OTERO NP 03/15/16 Nifedipine* (Procardia XL*) 30 Mg Tabsr, 30 MG PO BID, #180 TAB Prov:NADINE RICO MD 10/05/15 Reported Medications Hydralazine Hcl* (Hydralazine Hcl*) 100 Mg Tablet, 100 MG PO TID TK 1 T PO TID 06/22/18 Pantoprazole* (Pantoprazole*) 40 Mg Tablet.dr, 40 MG PO DAILY for 30 Days, #30 TK 1 T PO QD 06/22/18 Ergocalciferol (Vitamin D2) (VITAMIN D2) 50,000 Unit Capsule, 08984 UNITS PO QMONDAY for 83 Days TAKE 1 TABLET BY MOUTH EVERY Mondays06/22/18 Levetiracetam* (Levetiracetam*) 500 Mg Tablet, 500 MG PO BID for 30 Days, #180 TAB TK 3 TS PO BID 06/22/18 Prednisone* (Prednisone*) 2.5 Mg Tablet, 7.5 MG PO DAILY, TAB 10/01/15 Labetalol Hcl* (Labetalol Hcl*) 300 Mg Tablet, 150 MG PO TID, TAB 10/01/15 Ranitidine Hcl (Ranitidine Hcl) 150 Mg Capsule, 75 MG PO BID, CAP 10/01/15 Mycophenolate Mofetil* (Mycophenolate Mofetil*) 500 Mg Tablet, 500 MG PO DAILY, TAB 10/01/15 Tacrolimus* (Tacrolimus*) 1 Mg Capsule, 1 MG PO Q12, CAP 10/01/15 Discontinued Reported Medications Amitriptyline Hcl* (Amitriptyline Hcl*) 50 Mg Tablet, 50 MG PO QHS for 30 Days, #30 TK 1 T PO QD HS 06/22/18 Minoxidil* (Lonitin*) 2.5 Mg Tab, 5 MG PO DAILY, TAB 06/22/18 Isosorbide Mononitrate* (Isosorbide Mononitrate*) 60 Mg Tab.er.24h, 60 MG PO DAILY, TAB 10/01/15 Discontinued Scripts Ondansetron (Ondansetron Odt) 4 Mg Tab.rapdis, 4 MG PO Q6H PRN for NAUSEA AND/OR VOMITING, #10 TAB Prov:GREG LOMELI MD 08/27/18 Amoxicillin/Potassium Clav (Amox-Clav 875-125 mg Tablet) 875-125 mg Tab, 1 TAB PO BID for 7 Days, #14 TAB Prov:GREG LOMELI MD 06/22/18 Ferrous Sulfate* (Ferrous Sulfate*) 325 Mg Tabec, 325 MG PO DAILY for 30 Days, TAB Prov:ESTEFANY OTERO NP 03/15/16 Ondansetron Hcl* (Zofran*) 8 Mg Tab, 8 MG PO Q6H PRN for NAUSEA AND OR VOMITING, #20 TAB Prov:ESTEFANY OTERO NP 03/15/16 Follow-up Plan 1. Follow up with your primary care physician in 1 week 2. Follow up with your peoplesoft programmer as previously scheduled 3. Continue all medications as prescribed 4. Try and get rest since seems to be affecting your blood pressure which is causing your headaches 5. If symptoms return or worsen, go to your nearest emergency department Primary Care Provider Not On Staff Doctor Time spent on discharge: > 30 minutes CHRIS ELIZABETH MD Aug 29, 2018 19:59
== END 2018-08-29 16:37 | disposition home or self-care (01) | DRG 103 ==
LOC: E/R 20:06 → TEL 08-28 03:31
PROVIDERS: ADMIT Internal Medicine; ATTEND Internal Medicine
DX: R51 Headache (principal); Z94.0 Kidney transplant status; I10 Essential (primary) hypertension; G47.00 Insomnia, unspecified
CPT/HCPCS: 36415; 70450; 71045; 80053; 83880; 84484; 85025; 93005; 96374; 96375; J0360; J2270; J2405; J7507; J7512; J7517

== ENCOUNTER 2018-09-12 03:47 | Inpatient (IN) | payer OTHER ==
[2018-09-12] VITALS (26 sets, daily range): BP systolic 110–150; BP diastolic 71–111; PULSE 76–97; RESP 11–26; Ht 160 cm; Wt 62.6 kg
[~2018-09-12] VITALS: Ht 160 cm; Wt 62.6 kg
[~2018-09-12 03:47] MED LIST changes: -AMIT50TA3 PO; -AMOX1TAB10 PO; -FER325 PO; -ISOS60TA PO; -MINO2.5T16 PO; -ONDA4TAB14 PO; -ZOF8 PO
[2018-09-12] MEDS ORDERED: morphine 4 MG/ML VIAL IV STA (04:20)
[2018-09-12] MEDS ORDERED: ONDANSETRON 4 MG INJ IV STA (04:20)
[2018-09-12] MEDS ORDERED: hydrALAzine 20 MG INJ IV ONE (04:30)
--- NOTE | 2018-09-12 05:18 | ERD ---
ER Documentation Chief Complaint Chief Complaint HTN, DICKSON with vomiting, hx kidney transplant HPI This is a 43-year-old male comes in because of severely elevated blood pressure and headache vomiting. Patient has history of remote kidney transplant. Is been seen multiple times for this in the past. Apparently patient has been com pliant with his blood pressure medication. Headache is mild to moderate intensity no exacerbating relieving factors. Denies fevers chills nausea vomiting. Denies chest pain. Vomiting nonbilious nonbloody 3 episodes. ROS All systems reviewed and are negative except as per history of present illness. Medications Home Meds Active Scripts Ondansetron Hcl* (Zofran*) 4 Mg Tablet, 4 MG PO Q6H PRN for NAUSEA AND OR VOMITING, #30 TAB Prov:IRENE ARRIAGA 09/21/16 Hydrocodone/Acetaminophen ([place] 5-325 Tablet) 1 Each Tablet, 1 EACH PO Q4 for PAIN, #30 TAB Prov:IRENE ARRIAGA 09/21/16 Docusate Sodium* (Colace*) 100 Mg Capsule, 100 MG PO Q24H PRN for CONSTIPATION, #30 CAP Prov:ESTEFANY OTERO NP 03/15/16 Nifedipine* (Procardia XL*) 30 Mg Tabsr, 30 MG PO BID, #180 TAB Prov:NADINE RICO MD 10/05/15 Reported Medications Hydralazine Hcl* (Hydralazine Hcl*) 100 Mg Tablet, 100 MG PO TID TK 1 T PO TID 06/22/18 Pantoprazole* (Pantoprazole*) 40 Mg Tablet.dr, 40 MG PO DAILY for 30 Days, #30 TK 1 T PO QD 06/22/18 Ergocalciferol (Vitamin D2) (VITAMIN D2) 50,000 Unit Capsule, 63335 UNITS PO QMONDAY for 83 Days TAKE 1 TABLET BY MOUTH EVERY Mondays06/22/18 Levetiracetam* (Levetiracetam*) 500 Mg Tablet, 500 MG PO BID for 30 Days, #180 TAB TK 3 TS PO BID 06/22/18 Prednisone* (Prednisone*) 2.5 Mg Tablet, 7.5 MG PO DAILY, TAB 10/01/15 Labetalol Hcl* (Labetalol Hcl*) 300 Mg Tablet, 150 MG PO TID, TAB 10/01/15 Ranitidine Hcl (Ranitidine Hcl) 150 Mg Capsule, 75 MG PO BID, CAP 10/01/15 Mycophenolate Mofetil* (Mycophenolate Mofetil*) 500 Mg Tablet, 500 MG PO DAILY, TAB 10/01/15 Tacrolimus* (Tacrolimus*) 1 Mg Capsule, 1 MG PO Q12, CAP 10/01/15 Allergies Allergies: Coded Allergies: No Known Allergy (Unverified , 08/27/18) PMhx/Soc Anesthesia Reaction: No Hx Respiratory Disorders: No Hx Cardiac Disorders: Yes (HTN) Hx Psychiatric Problems: No Hx Miscellaneous Medical Probl: Yes (Renal Failure) Hx Alcohol Use: No Hx Substance Use: No Hx Tobacco Use: No Smoking Status: Never smoker Physical Exam Vitals Vital Signs Date Temp Pulse Resp B/P (MAP) Pulse Ox O2 O2 Flow FiO2 Time Delivery Rate 09/12/18 85 21 143/105 98 Room Air 05:00 (118) 09/12/18 85 21 156/113 98 Room Air 04:34 (127) 09/12/18 85 20 159/115 100 Room Air 04:05 (130) 09/12/18 98.7 94 16 162/113 99 03:50 (129) Physical Exam Const: No acute distress Head: Atraumatic Eyes: Normal Conjunctiva ENT: Normal External Ears, Nose and Mouth. Neck: Full range of motion. No meningismus. Resp: Clear to auscultation bilaterally Cardio: Regular rate and rhythm, no murmurs Abd: Soft, non tender, non distended. Normal bowel sounds Skin: No petechiae or rashes Back: No midline or flank tenderness Ext: No cyanosis, or edema Neur: Awake and alert Psych: Normal Mood and Affect Result Diagram: 09/12/1842009/12/18420 Results 24 hrs Laboratory Tests Test 09/12/18 04:21 White Blood Count 10.7 10^3/ul Red Blood Count 4.80 10^6/ul Hemoglobin 13.3 g/dl Hematocrit 41.9 % Mean Corpuscular Volume 87.3 fl Mean Corpuscular Hemoglobin 27.7 pg Mean Corpuscular Hemoglobin Concent 31.7 g/dl Red Cell Distribution Width 13.1 % Platelet Count 305 10^3/UL Mean Platelet Volume 9.9 fl Immature Granulocytes % 0.600 % Neutrophils % 74.5 % Lymphocytes % 17.5 % Monocytes % 6.6 % Eosinophils % 0.6 % Basophils % 0.2 % Nucleated Red Blood Cells % 0.0 /100WBC Immature Granulocytes # 0.060 10^3/ul Neutrophils # 8.0 10^3/ul Lymphocytes # 1.9 10^3/ul Monocytes # 0.7 10^3/ul Eosinophils # 0.1 10^3/ul Basophils # 0.0 10^3/ul Nucleated Red Blood Cells # 0.0 10^3/ul Prothrombin Time 12.5 Sec Prothrombin Time Ratio 1.0 INR International Normalized Ratio 0.92 Activated Partial Thromboplast Time 28.7 Sec Sodium Level 141 mmol/L Potassium Level 3.2 mmol/L Chloride Level 106 mmol/L Carbon Dioxide Level 25 mmol/L Anion Gap 10 Blood Urea Nitrogen 16 mg/dl Creatinine 0.88 mg/dl Est Glomerular Filtrat Rate mL/min > 60 mL/min Glucose Level 103 mg/dl Calcium Level 9.1 mg/dl Troponin I Pending Current Medications Medications Dose Sig/Tray Start Time Status Last (Trade) Ordered Route PRN Stop Time Admin Dose Reason Admin Ondansetron 4 mg ONCE STAT 09/12/18 DC 09/12/18 HCl (Zofran IV 04:20 09/12/18 04:30 Inj) 04:21 Morphine 4 mg ONCE STAT 09/12/18 DC 09/12/18 Sulfate IV 04:20 09/12/18 04:31 (morphine) 04:21 Hydralazine 20 mg ONCE ONCE 09/12/18 DC 09/12/18 HCl IV 04:30 09/12/18 04:33 (Apresoline) 04:31 Procedures/MDM Emergency department course: Patient seen involving surgical specimen from the evaluation. Start cardiac workup and has had CT scan of the head to rule out any endorgan damage. Given hydralazine for blood pressure control. Serial exams stable. Blood pressure somewhat normalized here in the department. Medical decision making: This very pleasant patient unfortunately severely elevated malignant hypertension. Given his history of kidney transplant, I feel the patient is admitted further evaluation and management. Patient will be admitted to Dr. Valderrama at 5:15 AM. Critical Care: Time: 36 minutes, independent of separately billable procedural time Treatments/Evaluations: Close monitoring and treatment of unstable vital signs, cardiorespiratory, and neurologic status, while maintaining tight balance of fluid, respiratory, and cardiac interventions. Departure Diagnosis: Primary Impression: Accelerated hypertension Additional Impression: Hypertensive crisis Condition: Critical FRANNIE LARA Sep 12, 2018 05:18
[2018-09-12] MEDS ORDERED: ACETAMINOPHEN 325 MG TAB PO PRN (05:30)
[2018-09-12] MEDS ORDERED: DOCUSATE SODIUM 100 MG CAP PO PRN ×2 (05:30)
[2018-09-12] MEDS ORDERED: NACL 0.9% 3 ML SYG IV SCH (05:30)
[2018-09-12] MEDS ORDERED: BISACODYL (EC) 5 MG TAB PO PRN (05:30)
[2018-09-12] MEDS ORDERED: ONDANSETRON 4 MG TAB PO PRN (05:30)
[2018-09-12] MEDS ORDERED: POTASSIUM CHLORIDE (SR) 20 MEQ TAB PO STA (08:48)
[2018-09-12] MEDS ORDERED: NIFEdipine (XL) 30 MG TAB PO SCH (09:00)
--- NOTE | 2018-09-12 09:05 | HP ---
Date/Time of Note Date/Time of Note DATE: 09/12/18 TIME: 08:55 Assessment/Plan VTE Prophylaxis SCD applied (from Nsg): Yes Pharmacological prophylaxis: NA/contraindicated Pharm contraindication: low risk/ambulating Lines/Catheters IV Catheter Type (from Nrsg): Saline Lock Assessment/Plan Hospital Course This is a 23-year-old male being admitted to the telemetry floor for: #1 accelerated hypertension: Patient did report headache that woke him up from sleeping. Patient is on hydralazine and labetalol at home. At the current time will try to optimize patient's blood pressure regimen. wWll start the patient on Procardia 60 mg XL daily, patient was previously on Procardia in the past.. We will continue his labetalol at the current time. We will hold off on his hydralazine as he does report that it typically drops his blood pressure too low.. Will consult nephrology Dr. Paulson for further assistance. #2 headaches: CT scan does not show any signs of acute bleeding. There is though some retro-cerebral fluid collection noted in previous evidence of craniotomy. Will obtain an MRI of the brain to further evaluate. Consider neurology/neurosurgery consultation if indicated. #3 end-stage renal disease: Status post renal transplant. Patient currently is doing well. We will continue his immunosuppressive medications. #4 history of subarachnoid hemorrhage: Patient is status post craniotomy with aneurysm clipping. No signs of any overt bleeding at the current time. However given patient's elevated blood pressures patient is a high risk. Will obtain an MRI to further evaluate. Will optimize patient's blood pressure regimen. #5 history of renal artery stenosis: Patient status post angioplasty with stenting. Will consult nephrology for further recommendations for patient's uncontrolled hypertension and for medicine recommendations given his history of aortic stenosis. #6 DVT GI prophylaxis: SCDs, no GI prophylaxis indicated Further treatment strategy will be implemented as per the clinical course. Result Diagram: 09/12/1842009/12/181 Results 24hrs Laboratory Tests Test 09/12/18 04:21 White Blood Count 10.7 Red Blood Count 4.80 Hemoglobin 13.3 L Hematocrit 41.9 L Mean Corpuscular Volume 87.3 Mean Corpuscular Hemoglobin 27.7 L Mean Corpuscular Hemoglobin Concent 31.7 L Red Cell Distribution Width 13.1 Platelet Count 305 Mean Platelet Volume 9.9 Immature Granulocytes % 0.600 H Neutrophils % 74.5 Lymphocytes % 17.5 Monocytes % 6.6 Eosinophils % 0.6 Basophils % 0.2 Nucleated Red Blood Cells % 0.0 Immature Granulocytes # 0.060 H Neutrophils # 8.0 H Lymphocytes # 1.9 Monocytes # 0.7 Eosinophils # 0.1 Basophils # 0.0 Nucleated Red Blood Cells # 0.0 Prothrombin Time 12.5 Prothrombin Time Ratio 1.0 INR International Normalized Ratio 0.92 Activated Partial Thromboplast Time 28.7 Sodium Level 141 Potassium Level 3.2 L Chloride Level 106 Carbon Dioxide Level 25 Anion Gap 10 Blood Urea Nitrogen 16 Creatinine 0.88 Est Glomerular Filtrat Rate mL/min > 60 Glucose Level 103 Calcium Level 9.1 Troponin I < 0.012 HPI/ROS Admit Date/Time Admit Date/Time Hx of Present Illness Chief complaint: Headaches, elevated blood pressure This is a 23-year-old male with a past medical history of hypertension and kidney transplant renal artery stenosis who presented with headache that woke up the patient. Patient reports that he was sleeping and he woke up to a severe headache. He checked his blood pressure and it was 170/120. He reports that he has been experiencing headaches since discharged from [facility] however his blood pressures have not been as high as they were last night. He reports that he is currently taking hydralazine and labetalol only. He was told to discontinue his Procardia previously. 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 He does report that he does not like taking the hydralazine as he notices that when he does take it it drops his blood pressure down too fast. He also does not like taking the medication 3 times a day. He denies any focal neurological deficit the current time or any blurry vision. Allergies: NKDA Medications: See MAR ROS Const: As per HPI Eyes : No pain discharge or redness or change in visual acuity ENT: No pain, sore throat, congestion, congestion, dysphagia or discharge Respiratory: No shortness of breath, cough, sputum, wheezing, or pleuritic pain Cardiovascular: No chest pain, palpitation, PND, or edema GI : no change in appetite, abdominal pain, nausea, vomiting, diarrhea, constipation, or change in the color his stool Genitourinary: No dysuria, hematuria, flank pain , discharge or CVA tenderness Musculoskeletal: No joint pain, back pain, neck pain, restricted range of motion in neck or joints Skin: No rash, bruising or hives Neuro: As per HPI Endocrine: No polyuria, polydipsia, temperature intolerance Psych: No hallucination, depression, anxiety or suicidal ideation PMH/Family/Social Past Medical History End-stage renal disease status post renal transplant. History of subarachnoid hemorrhage status post craniotomy with aneurysm clipping. Uncontrolled h ypertension history of renal artery stenosis status post angioplasty with stenting. Medications Current Medications Hydralazine HCl (Apresoline) 100 mg TID PO ; Start 09/12/18 at 09:00 Labetalol HCl (Normodyne) 150 mg TID PO ; Start 09/12/18 at 09:00 Levetiracetam (Keppra) 500 mg BID PO ; Start 09/12/18 at 09:00 Mycophenolate Mofetil (Cellcept) 500 mg DAILY PO ; Start 09/12/18 at 09:00 Nifedipine (Procardia Xl) 30 mg BID PO ; Start 09/12/18 at 09:00 Ondansetron HCl (Zofran Tab) 4 mg Q6H PRN PO NAUSEA AND/OR VOMITING; Start 09/12/18 at 05:30 Pantoprazole (Protonix Tab) 40 mg DAILY PO ; Start 09/12/18 at 09:00 Prednisone (Prednisone) 7.5 mg DAILY PO ; Start 09/12/18 at 09:00 Ranitidine HCl (Zantac) 75 mg BID PO ; Start 09/12/18 at 09:00 Tacrolimus (Prograf) 1 mg Q12 PO ; Start 09/12/18 at 09:00 IV Flush (NS 3 ml) 3 ml PER PROTOCOL IV ; Start 09/12/18 at 05:30 Acetaminophen (Tylenol Tab) 650 mg Q6H PRN PO .PAIN 1-3 OR TEMP; Start 09/12/18 at 05:30 Docusate Sodium (Colace) 100 mg Q12H PRN PO .CONSTIPATION; Start 09/12/18 at 05:30 Bisacodyl (Dulcolax) 5 mg DAILY PRN PO .CONSTIPATION; Start 09/12/18 at 05:30 Coded Allergies: No Known Allergy (Unverified , 09/12/18) Past Surgical History Renal transplant, renal artery angioplasty with stenting, subarachnoid hemorrhage status post craniotomy with aneurysm clipping Past Surgical Hx: other Family History Significant Family History: no pertinent family hx Social History Alcohol Use: none Smoking Status: Never smoker Drug Use: none Exam/Review of Systems Vital Signs Vitals Vital Signs Date Temp Pulse Resp B/P (MAP) Pulse Ox O2 O2 Flow FiO2 Time Delivery Rate 09/12/18 98.0 79 20 134/94 98 Room Air 08:04 (107) Exam Exam General: The patient is a pleasant male currently lying in bed in no acute distress, he does report improvement of his headache HEENT: Atraumatic, normocephalic. The pupils are equal, round and reactive. Extraocular motor are intact Neck: Supple with full range of motion. No rigidity or meningismus Chest: Nontender Lungs: Clear to auscultation bilaterally no crackles rales or wheezing Heart: Normal S1-S2, Regular rhythm and rate. No murmur, Abdomen: Soft , nontender, nondistended , bowel sounds are present. No guarding no rebound tenderness , No masses or organomegaly. No costovertebral temporal angle mass Extremities: Normal to inspection, no edema no cyanosis Neurologic: Normal mental status, speech normal, cranial nerves II through XII are intact, motor and sensory are intact, Additional Comments PROCEDURE: CT Brain without contrast. CLINICAL INDICATION: Headache TECHNIQUE: CT scan of the brain was performed on a multidetector high- resolution CT scan. Axial imaging was obtained of the brain without contrast administration. Coronal and sagittal reformatted images were obtained from the axial source images. Standard CT scan of the head without contrast protocols were performed. The total exam CTDI equals 39.64 mGy and the total exam DLP equals 634.23 mGy- cm. One or more of the following dose reduction techniques were used: - Automated exposure control. - Adjustment of the mA and/or kV according to patient size. Use of iterative reconstruction technique. Dicom images are available COMPARISON: CT head without contrast 08/28/2018 FINDINGS: No significant change. Status post right frontal temporal craniotomy and fixation. Remainder of the bones and calvarium are intact. Hypoplastic frontal sinuses. Remainder the paranasal sinuses visualized and mastoids are unremarkable. 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 Again noted is small focal fat deposit in the anterior aspect of the a anterior horn of the right lateral ventricle. Ventricular system is normal in size without midline shift. 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 No other evidence of intracranial masses. No evidence of intracranial hemorrhages. The valles-white matter differentiation is otherwise unremarkable. IMPRESSION: 1. No significant change. 2. 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 3. 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 4. No other evidence of intracranial masses hemorrhages or midline shift. RPTAT:AAJJ Physician Christ Date Time Electronically viewed and signed by Physician Christ on 09/12/2018 05:27 BM/ CC: FRANNIE LARA [id number] PROCEDURE: XR Chest. CLINICAL INDICATION: Pain TECHNIQUE: AP portable chest was obtained COMPARISON: Chest 08/28/2018 FINDINGS: Heart normal limits in size. No evidence of pulmonary vascular congestion acute lung consolidation pleural effusions and pneumothorax. Probable small hiatal hernia. IMPRESSION: 1. No evidence of acute cardiopulmonary disease. 2. Probable small hiatal hernia. RPTAT:AAJJ Physician Christ Date Time Electronically viewed and signed by Physician Christ on 09/12/2018 05:22 BM/ CC: FRANNIE LARA [id number] CHAVO URNEA Sep 12, 2018 09:05
[2018-09-12] MEDS: PANTOPRAZOLE (EC) 40 MG TAB PO SCH (09:42)
[2018-09-12] MEDS: MYCOPHENOLATE 250 MG CAP PO SCH (09:46)
[2018-09-12] MEDS: RANITIDINE 150 MG TAB PO SCH ×2 (09:46→21:42)
[2018-09-12] MEDS: TACROLIMUS 1 MG CAP PO SCH ×2 (09:46→21:42)
[2018-09-12] MEDS: LEVETIRACETAM 500 MG TAB PO SCH ×2 (09:47→21:42)
[2018-09-12] MEDS: predniSONE 2.5 MG TAB PO SCH (09:48)
[2018-09-12] MEDS: LABETALOL 100 MG TAB PO SCH ×3 (09:48→21:47)
[2018-09-12] MEDS: NIFEdipine (XL) 60 MG TAB PO SCH (09:48)
--- NOTE | 2018-09-12 12:35 | CONS ---
Assessment/Plan Assessment/Plan Hospital Course 23 yo M c/ HTN, ESRD s/p transplant and other comorbidities, who presents for evaluation of headache....for which neurology is consulted. Noted to be severely hypertensive....a likely contributor.. A focal STRADDLE BUG process is unlikely.. CT Head is notable for post-op changes...as well as a retrocerebellar fluid filled cavity that is unlikely to be of clinical significance.. P: Continued BP control per primary; consider alternative to Hydralazine, given its associated with elevated ICP Add UDS OK to continue Keppra per ops Ativan iv prn prolonged seizure or cluster Pain management per primary Will follow clinically Consultation Date/Type/Reason Admit Date/Time Type of Consult Neurology Reason for Consultation headache Requesting Provider: ROGER ENRIQUEZ MD Date/Time of Note DATE: 09/12/18 TIME: 12:35 Hx of Present Illness This is a 23-year-old male with a past medical history of hypertension and kidney transplant renal artery stenosis who presented with headache that woke up the patient. Patient reports that he was sleeping and he woke up to a severe headache. He checked his blood pressure and it was 170/120. He reports that he has been experiencing headaches since discharged from [facility] however his blood pressures have not been as high as they were last night. He reports that he is currently taking hydralazine and labetalol only. He was told to discontinue his Procardia previously. He does have a residential aide that he is going to be seeing as an outpatient in the coming weeks. He does report that he does not like taking the hydralazine as he notices that when he does take it it drops his blood pressure down too fast. He also does not like taking the medication 3 times a day. He denies any focal neurological deficit the current time or any blurry vision. Headache: Improved from prior, 10-->5 following pain medications Frontal, radiating posteriorly to neck No photophobia/phonophobia.. 12 PT ROS ow neg Exam/Review of Systems Exam Vitals Vital Signs Date Temp Pulse Resp B/P (MAP) Pulse Ox O2 O2 Flow FiO2 Time Delivery Rate 09/12/18 98.2 80 20 128/87 97 Room Air 11:26 (101) Exam PE: Gen Appearance: No Apparent Distress HEENT: Normocephalic; has R frontotemporal craniotomy scar Cardiovascular: Regular rate Lungs: Clear bilaterally Abdomen: Soft Extremities: Dry NE: The patient was alert and oriented, able to spell WORLD backwards, and able to recall all three words after a five minute delay. Language was normal. Fund of knowledge was normal. Pupils were equal and reactive to light. There was no afferent pupillary defect. Visual mcdowell were normal. Funduscopic examination showed sharp disc margins and spontaneous venous pulsations. Extra-ocular movements were full. Ptosis was absent. There was no nystagmus. Facial sensation was normal. Face was symmetric with normal strength. Hearing was intact. Palate movements were normal. Neck strength was normal. There was normal tongue bulk and speed of movement. Tone was normal. Muscle bulk was normal. I did not see fasciculations. Arms and legs were strong. Vibration sensation was normal. Temperature and pinprick sensation was normal. Rapid alternating movements were normal. There was no dysmetria. There was no intention tremor. Gait was deferred due to bedrest. Arm and leg reflexes were 2+ and symmetric. Castillo's sign was absent. Plantar responses were flexor. Results Result Diagram: 09/12/18 0421 09/12/18 0421 Results 24hrs Laboratory Tests Test 09/12/18 04:21 White Blood Count 10.7 Red Blood Count 4.80 Hemoglobin 13.3 L Hematocrit 41.9 L Mean Corpuscular Volume 87.3 Mean Corpuscular Hemoglobin 27.7 L Mean Corpuscular Hemoglobin Concent 31.7 L Red Cell Distribution Width 13.1 Platelet Count 305 Mean Platelet Volume 9.9 Immature Granulocytes % 0.600 H Neutrophils % 74.5 Lymphocytes % 17.5 Monocytes % 6.6 Eosinophils % 0.6 Basophils % 0.2 Nucleated Red Blood Cells % 0.0 Immature Granulocytes # 0.060 H Neutrophils # 8.0 H Lymphocytes # 1.9 Monocytes # 0.7 Eosinophils # 0.1 Basophils # 0.0 Nucleated Red Blood Cells # 0.0 Prothrombin Time 12.5 Prothrombin Time Ratio 1.0 INR International Normalized Ratio 0.92 Activated Partial Thromboplast Time 28.7 Sodium Level 141 Potassium Level 3.2 L Chloride Level 106 Carbon Dioxide Level 25 Anion Gap 10 Blood Urea Nitrogen 16 Creatinine 0.88 Est Glomerular Filtrat Rate mL/min > 60 Glucose Level 103 Calcium Level 9.1 Troponin I < 0.012 Medications Medication Current Medications Hydralazine HCl (Apresoline) 100 mg TID PO ; Start 09/12/18 at 09:00; Status Hold Labetalol HCl (Normodyne) 150 mg TID PO Last administered on 09/12/18 09:48; Admin Dose 150 MG; Start 09/12/18 at 09:00 Levetiracetam (Keppra) 500 mg BID PO Last administered on 09/12/18 09:47; Admin Dose 500 MG; Start 09/12/18 at 09:00 Mycophenolate Mofetil (Cellcept) 500 mg DAILY PO Last administered on 09/12/18 09:46; Admin Dose 500 MG; Start 09/12/18 at 09:00 Ondansetron HCl (Zofran Tab) 4 mg Q6H PRN PO NAUSEA AND/OR VOMITING; Start 09/12/18 at 05:30 Pantoprazole (Protonix Tab) 40 mg DAILY PO Last administered on 09/12/18 09:42; Admin Dose 40 MG; Start 09/12/18 at 09:00 Prednisone (Prednisone) 7.5 mg DAILY PO Last administered on 09/12/18 09:48; Admin Dose 7.5 MG; Start 09/12/18 at 09:00 Ranitidine HCl (Zantac) 75 mg BID PO Last administered on 09/12/18 09:46; Admin Dose 75 MG; Start 09/12/18 at 09:00 Tacrolimus (Prograf) 1 mg Q12 PO Last administered on 09/12/18 09:46; Admin Dose 1 MG; Start 09/12/18 at 09:00 IV Flush (NS 3 ml) 3 ml PER PROTOCOL IV ; Start 09/12/18 at 05:30 Acetaminophen (Tylenol Tab) 650 mg Q6H PRN PO .PAIN 1-3 OR TEMP; Start 09/12/18 at 05:30 Docusate Sodium (Colace) 100 mg Q12H PRN PO .CONSTIPATION; Start 09/12/18 at 05:30 Bisacodyl (Dulcolax) 5 mg DAILY PRN PO .CONSTIPATION; Start 09/12/18 at 05:30 Nifedipine (Procardia Xl) 60 mg DAILY PO Last administered on 3/6/19at 09:48; A dmin Dose 60 MG; Start 09/12/18 at 09:00 Past Medical History reviewed Home Meds Active Scripts Ondansetron Hcl* (Zofran*) 4 Mg Tablet, 4 MG PO Q6H PRN for NAUSEA AND OR VOMITING, #30 TAB Prov:IRENE ARRIAGA 09/21/16 Docusate Sodium* (Colace*) 100 Mg Capsule, 100 MG PO Q24H PRN for CONSTIPATION, #30 CAP Prov:ESTEFANY OTERO NP 03/15/16 Nifedipine* (Procardia XL*) 30 Mg Tabsr, 30 MG PO BID, #180 TAB Prov:NADINE RICO MD 10/05/15 Reported Medications Hydralazine Hcl* (Hydralazine Hcl*) 100 Mg Tablet, 100 MG PO TID TK 1 T PO TID 06/22/18 Pantoprazole* (Pantoprazole*) 40 Mg Tablet.dr, 40 MG PO DAILY for 30 Days, #30 TK 1 T PO QD 06/22/18 Ergocalciferol (Vitamin D2) (VITAMIN D2) 50,000 Unit Capsule, 25928 UNITS PO QMONDAY for 83 Days TAKE 1 TABLET BY MOUTH EVERY Mondays06/22/18 Levetiracetam* (Levetiracetam*) 500 Mg Tablet, 500 MG PO BID for 30 Days, #180 TAB TK 3 TS PO BID 06/22/18 Prednisone* (Prednisone*) 2.5 Mg Tablet, 7.5 MG PO DAILY, TAB 10/01/15 Labetalol Hcl* (Labetalol Hcl*) 300 Mg Tablet, 300 MG PO TID, TAB 10/01/15 Ranitidine Hcl (Ranitidine Hcl) 150 Mg Capsule, 75 MG PO BID, CAP 10/01/15 Mycophenolate Mofetil* (Mycophenolate Mofetil*) 500 Mg Tablet, 500 MG PO DAILY, TAB 10/01/15 Tacrolimus* (Tacrolimus*) 1 Mg Capsule, 1 MG PO Q12, CAP 10/01/15 Discontinued Scripts Hydrocodone/Acetaminophen ([place] 5-325 Tablet) 1 Each Tablet, 1 EACH PO Q4 for PAIN, #30 TAB Prov:IRENE ARRIAGA 09/21/16 Medications Current Medications Hydralazine HCl (Apresoline) 100 mg TID PO ; Start 09/12/18 at 09:00; Status Hold Labetalol HCl (Normodyne) 150 mg TID PO Last administered on 09/12/18 09:48; Admin Dose 150 MG; Start 09/12/18 at 09:00 Levetiracetam (Keppra) 500 mg BID PO Last administered on 09/12/18 09:47; Admin Dose 500 MG; Start 09/12/18 at 09:00 Mycophenolate Mofetil (Cellcept) 500 mg DAILY PO Last administered on 09/12/18 09:46; Admin Dose 500 MG; Start 09/12/18 at 09:00 Ondansetron HCl (Zofran Tab) 4 mg Q6H PRN PO NAUSEA AND/OR VOMITING; Start 09/12/18 at 05:30 Pantoprazole (Protonix Tab) 40 mg DAILY PO Last administered on 09/12/18 09:42; Admin Dose 40 MG; Start 09/12/18 at 09:00 Prednisone (Prednisone) 7.5 mg DAILY PO Last administered on 09/12/18 09:48; Admin Dose 7.5 MG; Start 09/12/18 at 09:00 Ranitidine HCl (Zantac) 75 mg BID PO Last administered on 09/12/18 09:46; Admin Dose 75 MG; Start 09/12/18 at 09:00 Tacrolimus (Prograf) 1 mg Q12 PO Last administered on 09/12/18 09:46; Admin Dose 1 MG; Start 09/12/18 at 09:00 IV Flush (NS 3 ml) 3 ml PER PROTOCOL IV ; Start 09/12/18 at 05:30 Acetaminophen (Tylenol Tab) 650 mg Q6H PRN PO .PAIN 1-3 OR TEMP; Start 09/12/18 at 05:30 Docusate Sodium (Colace) 100 mg Q12H PRN PO .CONSTIPATION; Start 09/12/18 at 05:30 Bisacodyl (Dulcolax) 5 mg DAILY PRN PO .CONSTIPATION; Start 09/12/18 at 05:30 Nifedipine (Procardia Xl) 60 mg DAILY PO Last administered on 09/12/18 09:48; Admin Dose 60 MG; Start 09/12/18 at 09:00 Allergies: Coded Allergies: No Known Allergy (Unverified , 09/12/18) Past Surgical History Past Surgical Hx: other Social History Alcohol Use: none Smoking Status: Never smoker Drug Use: none ZAMZAM ENCISO NP Sep 12, 2018 12:35 GARRETT GLASER Sep 12, 2018 13:41
[2018-09-12] MEDS ORDERED: LORAZEPAM 2 MG INJ IV PRN (14:00)
--- NOTE | 2018-09-12 15:41 | CONS ---
DATE OF ADMISSION: 09/12/2018 DATE OF CONSULTATION: 09/12/2018 TYPE OF CONSULTATION: Nephrology. REASON FOR CONSULTATION: Hypertension, history of renal transplant. 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 The patient stated that he was sleeping when he woke up to severe headache. The patient chec ked his blood pressure and it was found to be systolic pressure of 170. The patient states he was on ly taking hydralazine and labetalol for his blood pressure, but because of his ongoing headaches, he came to the emergency room. Upon arrival, the patient had a CT scan of the head which showed no acut e findings of intracranial bleed. A chest x-ray was obtained which showed no acute finding. In the emergency room, the patient was given hypertensive medication and was admitted to intensive care unit for evaluation. In terms of patient's renal history as stated above, he had donor transplant in 2006. The p atient had excellent allograft function. He sees a primary monument setter in outpatient setting. The patient is on triple therapy. He denies any episodes of hemoptysis, hematemesis or hematochezia. PAST MEDICAL HISTORY: History of end-stage renal disease, history of hypertension, history of medica l noncompliance, history of subarachnoid hemorrhage, history of anemia, history of seizure disorder, history of neuropathy. PAST SURGICAL HISTORY: Status post donor transplant in 2006, status post craniotomy with an eurysm clipping, status post renal artery angioplasty with stenting. FAMILY HISTORY: Noncontributory. SOCIAL HISTORY: Does not drink, smoke or do drugs. MEDICATIONS: Have been reviewed. ALLERGIES: NO KNOWN DRUG ALLERGIES. REVIEW OF SYSTEMS: A 14-point review of systems was conducted. Pertinent positives are stated in HP I, otherwise negative. PHYSICAL EXAMINATION: VITAL SIGNS: Blood pressure is 130/86, respirations 16, pulse 72, temperature 98.0. HEENT: Head is normocephalic. Pupils are reactive to light. NECK: Supple. HEART: Regular rate. LUNGS: Show diminished breath sounds at base. ABDOMEN: Soft, nontender to palpation without rebound or guarding. EXTREMITIES: Negative for clubbing, cyanosis. No edema. DERMATOLOGIC: No rashes. MUSCULOSKELETAL: No joint effusion. NEUROLOGIC: No focal deficits. LABORATORY DATA: Show a white count 10.7, hemoglobin 13.3, platelet count 305. Sodium 142, potassiu m 3.2, BUN 16, creatinine 0.88. IMAGING STUDIES: As stated in HPI. ASSESSMENT AND PLAN: This is a 23-year-old male who presents with: 1. End-stage renal disease status post donor transplant. The patient has excellent allogra ft function. At this point, we will continue to monitor closely. Continue current treatment plan. Monitor for significant hemodynamic fluctuations. 2. Immunosuppression. The patient is on triple therapy. We will continue Prograf, CellCept, predni sone. We will consider checking Prograf level. 3. Uncontrolled hypertension. The patient has a previous history of renal artery stenosis status po st angioplasty and stenting. At this point, we will continue current blood pressure regimen. Consid er arterial ultrasound of allograft renal artery. We will monitor closely. We will adjust blood pre ssure medications as needed. We will continue to up titrate labetalol, hydralazine. Consider adding ELAINE inhibitor or ARB. 4. Headaches. Etiology is likely secondary to hypertension. We will continue to monitor. Follow u p with neurology. 5. Subarachnoid hemorrhage status post craniotomy with aneurysm clipping. We will continue to monit or. CT scan showed no evidence of bleed. 6. Hypokalemia. We will monitor and replete. 7. Mineral bone disorder. Monitor calcium and phosphorus levels. 8. History of seizure disorder. Continue Keppra. 9. Neuropathy. Continue Elavil. Thank you, Dr. Urena, for this interesting consult. It will be a pleasure to follow patient with y nikolai throughout the hospital course. Dictated By: LANIE DUMONT DO NR/NTS Conf#: [id number] DID#: [id number] CC: CHAVO URENA MD;*EndCC*
--- NOTE | 2018-09-12 15:45 | PN ---
Date/Time of Note Date/Time of Note DATE: 09/12/18 TIME: 15:43 Assessment/Plan VTE Prophylaxis SCD applied (from Nsg): Yes Pharmacological prophylaxis: heparin Lines/Catheters IV Catheter Type (from Nrsg): Saline Lock Urinary Cath still in place: No Assessment/Plan Hospital Course 23 yo male with renal transplant and s/p ICH s/p hemicraniectomy, HTN who presented with severe hypertension and headache - headache related to either BP elevation or tension headache Hypertension: - Continue current management s/p renal transplant: - Continue immunosuppresion Result Diagram: 09/12/18 0421 09/12/18 0421 Results 24hrs Laboratory Tests Test 09/12/18 04:21 White Blood Count 10.7 Red Blood Count 4.80 Hemoglobin 13.3 L Hematocrit 41.9 L Mean Corpuscular Volume 87.3 Mean Corpuscular Hemoglobin 27.7 L Mean Corpuscular Hemoglobin Concent 31.7 L Red Cell Distribution Width 13.1 Platelet Count 305 Mean Platelet Volume 9.9 Immature Granulocytes % 0.600 H Neutrophils % 74.5 Lymphocytes % 17.5 Monocytes % 6.6 Eosinophils % 0.6 Basophils % 0.2 Nucleated Red Blood Cells % 0.0 Immature Granulocytes # 0.060 H Neutrophils # 8.0 H Lymphocytes # 1.9 Monocytes # 0.7 Eosinophils # 0.1 Basophils # 0.0 Nucleated Red Blood Cells # 0.0 Prothrombin Time 12.5 Prothrombin Time Ratio 1.0 INR International Normalized Ratio 0.92 Activated Partial Thromboplast Time 28.7 Sodium Level 141 Potassium Level 3.2 L Chloride Level 106 Carbon Dioxide Level 25 Anion Gap 10 Blood Urea Nitrogen 16 Creatinine 0.88 Est Glomerular Filtrat Rate mL/min > 60 Glucose Level 103 Calcium Level 9.1 Troponin I < 0.012 Subjective 24 Hr Interval Summary Free Text/Dictation BP improved Headache improved No need for further imaging per neuro and neurosurgery Exam/Review of Systems Exam Vitals Vital Signs Date Temp Pulse Resp B/P (MAP) Pulse Ox O2 O2 Flow FiO2 Time Delivery Rate 09/12/18 86 19 120/88 97 15:30 (99) 09/12/18 Room Air 15:00 09/12/18 98.8 13:00 Constitutional: alert, oriented, well developed Psych: no complaints, nl mood/affect Head: normocephalic, atraumatic Eyes: nl conjunctiva, EOMI, nl lids, nl sclera, PERRL ENMT: nl external ears & nose, nl lips & teeth, nl nasal mucosa & septum Neck: supple, non-tender Respiratory: clear to auscultation, normal air movement Cardiovascular: regular rate and rhythm, nl pulses Gastrointestinal: soft, nl liver, spleen, non-tender Musculoskeletal: nl extremities to inspection, nl gait and stance Extremities: normal pulses Neurological: GOLF [employer]UB WEIGHER II-XII intact, nl mental status, nl speech, nl strength Skin: nl turgor; No rash or lesions Lymph: nl lymph nodes Results Results 24hrs Laboratory Tests Test 09/12/18 04:21 White Blood Count 10.7 Red Blood Count 4.80 Hemoglobin 13.3 L Hematocrit 41.9 L Mean Corpuscular Volume 87.3 Mean Corpuscular Hemoglobin 27.7 L Mean Corpuscular Hemoglobin Concent 31.7 L Red Cell Distribution Width 13.1 Platelet Count 305 Mean Platelet Volume 9.9 Immature Granulocytes % 0.600 H Neutrophils % 74.5 Lymphocytes % 17.5 Monocytes % 6.6 Eosinophils % 0.6 Basophils % 0.2 Nucleated Red Blood Cells % 0.0 Immature Granulocytes # 0.060 H Neutrophils # 8.0 H Lymphocytes # 1.9 Monocytes # 0.7 Eosinophils # 0.1 Basophils # 0.0 Nucleated Red Blood Cells # 0.0 Prothrombin Time 12.5 Prothrombin Time Ratio 1.0 INR International Normalized Ratio 0.92 Activated Partial Thromboplast Time 28.7 Sodium Level 141 Potassium Level 3.2 L Chloride Level 106 Carbon Dioxide Level 25 Anion Gap 10 Blood Urea Nitrogen 16 Creatinine 0.88 Est Glomerular Filtrat Rate mL/min > 60 Glucose Level 103 Calcium Level 9.1 Troponin I < 0.012 Medications Medication Current Medications Hydralazine HCl (Apresoline) 100 mg TID PO ; Start 09/12/18 at 09:00; Status Hold Labetalol HCl (Normodyne) 150 mg TID PO Last administered on 09/12/18at 13:14; Admin Dose 150 MG; Start 09/12/18 at 09:00 Levetiracetam (Keppra) 500 mg BID PO Last administered on 09/12/18at 09:47; Admin Dose 500 MG; Start 09/12/18 at 09:00 Mycophenolate Mofetil (Cellcept) 500 mg DAILY PO Last administered on 09/12/18 09:46; Admin Dose 500 MG; Start 09/12/18 at 09:00 Ondansetron HCl (Zofran Tab) 4 mg Q6H PRN PO NAUSEA AND/OR VOMITING; Start 09/12/18 at 05:30 Pantoprazole (Protonix Tab) 40 mg DAILY PO Last administered on 09/12/18 09:42; Admin Dose 40 MG; Start 09/12/18 at 09:00 Prednisone (Prednisone) 7.5 mg DAILY PO Last administered on 09/12/18 09:48; Admin Dose 7.5 MG; Start 09/12/18 at 09:00 Ranitidine HCl (Zantac) 75 mg BID PO Last administered on 09/12/18 09:46; Admin Dose 75 MG; Start 09/12/18 at 09:00 Tacrolimus (Prograf) 1 mg Q12 PO Last administered on 09/12/18 09:46; Admin Dose 1 MG; Start 09/12/18 at 09:00 IV Flush (NS 3 ml) 3 ml PER PROTOCOL IV ; Start 09/12/18 at 05:30 Acetaminophen (Tylenol Tab) 650 mg Q6H PRN PO .PAIN 1-3 OR TEMP; Start 09/12/18 at 05:30 Docusate Sodium (Colace) 100 mg Q12H PRN PO .CONSTIPATION; Start 09/12/18 at 05:30 Bisacodyl (Dulcolax) 5 mg DAILY PRN PO .CONSTIPATION; Start 09/12/18 at 05:30 Nifedipine (Procardia Xl) 60 mg DAILY PO Last administered on 09/12/18 09:48; Admin Dose 60 MG; Start 09/12/18 at 09:00 Lorazepam (Ativan) 1 mg Q6H PRN IV seizures; Start 09/12/18 at 14:00 ROGER ENRIQUEZ MD Sep 12, 2018 15:45
[2018-09-12] MEDS ORDERED: HYDROCODONE/APAP (5/325) TAB PO PRN (16:00)
--- NOTE | 2018-09-12 23:52 | CONS ---
DENY COLLADO MD Sep 12, 2018 23:52
[2018-09-13 01:57] VITALS: BP 144/90; PULSE 91; RESP 20
[2018-09-13 07:20] VITALS: BP 145/100; PULSE 88; RESP 16
[2018-09-13] MEDS: MYCOPHENOLATE 250 MG CAP PO SCH ×2 (09:00→10:56)
[2018-09-13] MEDS: LABETALOL 200 MG TAB PO SCH ×4 (09:00→14:12)
[2018-09-13] MEDS: TACROLIMUS 1 MG CAP PO SCH (09:04)
[2018-09-13] MEDS: LEVETIRACETAM 500 MG TAB PO SCH (09:04)
[2018-09-13] MEDS: NIFEdipine (XL) 60 MG TAB PO SCH (09:05)
[2018-09-13] MEDS: predniSONE 2.5 MG TAB PO SCH (09:05)
[2018-09-13] MEDS: PANTOPRAZOLE (EC) 40 MG TAB PO SCH (09:05)
[2018-09-13] MEDS: RANITIDINE 150 MG TAB PO SCH (09:05)
--- NOTE | 2018-09-13 09:47 | PN ---
DATE: 09/13/2018 SUBJECTIVE: The patient was transferred from intensive care unit to med/surg. The patient had no ac [place] events overnight. No hemoptysis, hematemesis, or hematochezia. OBJECTIVE: VITAL SIGNS: Blood pressure is 145/100, respirations 16, pulse 88, temperature 98.1. HEENT: Head is normocephalic. NECK: Supple. HEART: Regular rate. LUNGS: Show diminished breath sounds at the base. ABDOMEN: Soft, nontender to palpation without rebound or guarding. EXTREMITIES: Negative for clubbing, cyanosis, no edema. DERMATOLOGIC: No rashes. MUSCULOSKELETAL: No joint effusion. NEUROLOGIC: No change in exam. MEDICATIONS: The patient's medications have been reviewed. LABORATORY DATA: Shows a BMP from 09/13/2018 within normal limits. ASSESSMENT AND PLAN: 1. End-stage renal disease. The patient is status post donor kidney transplant. The patie nt has excellent allograft function. We will continue to monitor closely. Continue current treatmen t plan. 2. Immunosuppression. The patient is on triple therapy. We will continue Prograf, CellCept and pre dnisone. 3. Uncontrolled hypertension. The patient has previous history of renal artery stenosis status post angioplasty and stenting. At this point, continue current blood pressure regimen. Blood pressures have improved. We will continue to up titrate labetalol, and monitor closely. 4. Headaches likely secondary to hypertension. Continue to monitor. Follow up with neurology. 5. History of subarachnoid hemorrhage, status post craniotomy with aneurysm clipping. Continue to m onitor. 6. Hypokalemia, improved. 7. Mineral bone disorder. Monitor calcium and phosphorus levels. 8. Seizure disorder. Continue Keppra. 9. Neuropathy. Continue Elavil. Dictated By: LANIE DUMONT DO NR/NTS Conf#: [id number] DID#: [id number] CC: CHAVO URENA MD;*EndCC*
[2018-09-13 10:54] VITALS: BP 146/95; PULSE 81
[2018-09-13] MEDS ORDERED: NIFE30TA23 PO (12:10)
--- NOTE | 2018-09-13 12:11 | PDOCDIS ---
Discharge Instructions DIAGNOSIS Discharge Diagnosis Hypertension CONDITION [id number] Patient Condition: [id number] Stable FOLLOW UP/APPOINTMENTS Follow-up Plan Take your medication as prescribed It is extremely important to control your blood pressure. I have prescribed you another medicine for blood pressure called nifedipine which you can warehouse order picker at your pharmacy ROGER ENRIQUEZ MD Sep 13, 2018 12:11
--- NOTE | 2018-09-13 12:13 | DS ---
Date/Time of Note Date/Time of Note DATE: 09/13/18 TIME: 12:12 Discharge Summary Admission/Discharge Info Admit Date/Time Sep 12, 2018 at 05:12 Discharge Date/Time Discharge Diagnosis Hypertension Patient Condition: Stable Hospital Course 23 yo male with renal transplant and s/p ICH s/p hemicraniectomy, HTN who presented with severe hypertension and headache CT imaging showed 1. No significant change. 2. 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 3. 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 4. No other evidence of intracranial masses hemorrhages or midline shift. Neurology and neurosurgery cleared the patient and felt no further workup was required His blood pressure was controlled and his symptoms resolved. Nifedipine was a dded to his medication regimen and he was discharged to further care with his outpatient doctors Home Meds Active Scripts Ondansetron Hcl* (Zofran*) 4 Mg Tablet, 4 MG PO Q6H PRN for NAUSEA AND OR VOMITING, #30 TAB Prov:IRENE ARRIAGA 09/21/16 Docusate Sodium* (Colace*) 100 Mg Capsule, 100 MG PO Q24H PRN for CONSTIPATION, #30 CAP Prov:ESTEFANY OTERO NP 03/15/16 Nifedipine* (Procardia XL*) 30 Mg Tabsr, 30 MG PO BID, #180 TAB Prov:NADINE RICO MD 10/05/15 Reported Medications Hydralazine Hcl* (Hydralazine Hcl*) 100 Mg Tablet, 100 MG PO TID TK 1 T PO TID 06/22/18 Pantoprazole* (Pantoprazole*) 40 Mg Tablet.dr, 40 MG PO DAILY for 30 Days, #30 TK 1 T PO QD 06/22/18 Ergocalciferol (Vitamin D2) (VITAMIN D2) 50,000 Unit Capsule, 59699 UNITS PO QMONDAY for 83 Days TAKE 1 TABLET BY MOUTH EVERY Mondays06/22/18 Levetiracetam* (Levetiracetam*) 500 Mg Tablet, 500 MG PO BID for 30 Days, #180 TAB TK 3 TS PO BID 06/22/18 Prednisone* (Prednisone*) 2.5 Mg Tablet, 7.5 MG PO DAILY, TAB 10/01/15 Labetalol Hcl* (Labetalol Hcl*) 300 Mg Tablet, 300 MG PO TID, TAB 10/01/15 Ranitidine Hcl (Ranitidine Hcl) 150 Mg Capsule, 75 MG PO BID, CAP 10/01/15 Mycophenolate Mofetil* (Mycophenolate Mofetil*) 500 Mg Tablet, 500 MG PO DAILY, TAB 10/01/15 Tacrolimus* (Tacrolimus*) 1 Mg Capsule, 1 MG PO Q12, CAP 10/01/15 Discontinued Scripts Hydrocodone/Acetaminophen ([place] 5-325 Tablet) 1 Each Tablet, 1 EACH PO Q4 for PAIN, #30 TAB Prov:IRENE ARRIAGA 09/21/16 Follow-up Plan Take your medication as prescribed It is extremely important to control your blood pressure. I have prescribed you another medicine for blood pressure called nifedipine which you can lemon picker at your pharmacy Primary Care Provider Not On Staff Doctor Pending Labs Laboratory Tests Test 09/12/18 17:30 09/13/18 04:37 Urine Color YELLOW (YELLOW) Urine Clarity CLEAR (CLEAR) Urine pH 8.0 (5.0-9.0) Urine Specific [place] 1.010 (1.003-1.030) Urine Ketones NEGATIVE mg/dL (NEGATIVE) Urine Nitrite NEGATIVE mg/dL (NEGATIVE) Urine Bilirubin NEGATIVE mg/dL (NEGATIVE) Urine Urobilinogen NEGATIVE mg/dL (NEGATIVE) Urine Leukocyte Esterase NEGATIVE [place]/ul Urine Hemoglobin NEGATIVE mg/dL (NEGATIVE) Urine Random Creatinine 63.50 mg/dl (20-370) Urine Random Sodium 89 mmol/L (30-90) Urine Glucose NEGATIVE mg/dL (NEGATIVE) Urine Total Protein NEGATIVE mg/dl (NEGATIVE) White Blood Count 9.7 10^3/ul (4.8-10.8) Red Blood Count 5.08 10^6/ul (4.70-6.10) Hemoglobin 14.2 g/dl (14.0-18.0) Hematocrit 44.5 % (42.0-52.0) Mean Corpuscular Volume 87.6 fl (82.0-101.0) Mean Corpuscular 28.0 pg (29.0-33.0) Hemoglobin Mean Corpuscular 31.9 g/dl (32.0-37.0) Hemoglobin Concent Red Cell Distribution 13.3 % (11.5-14.5) Width Platelet Count 321 10^3/UL (140-415) Mean Platelet Volume 10.1 fl (7.4-10.4) Immature Granulocytes % 0.200 % (0.001-0.429) Neutrophils % 61.0 % (39.0-77.0) Lymphocytes % 30.7 % (15.0-51.0) Monocytes % 6.9 % (0.0-11.0) Eosinophils % 0.9 % (0.0-7.0) Basophils % 0.3 % (0.0-2.0) Nucleated Red Blood Cells 0.0 /100WBC (0.0-0.0) % Immature Granulocytes # 0.020 10^3/ul (0.0-0.031) Neutrophils # 5.9 10^3/ul (1.6-7.5) Lymphocytes # 3.0 10^3/ul (0.8-2.9) Monocytes # 0.7 10^3/ul (0.3-0.9) Eosinophils # 0.1 10^3/ul (0.0-0.5) Basophils # 0.0 10^3/ul (0.0-0.1) Nucleated Red Blood Cells 0.0 10^3/ul (0.0-0.0) # Sodium Level 141 mmol/L (135-144) Potassium Level 3.6 mmol/L (3.5-5.1) Chloride Level 107 mmol/L (97-110) Carbon Dioxide Level 26 mmol/L (21-31) Anion Gap 8 (5-13) Blood Urea Nitrogen 14 mg/dl (7-20) Creatinine 1.05 mg/dl (0.61-1.24) Est Glomerular Filtrat > 60 mL/min (>60) Rate mL/min Glucose Level 101 mg/dl (70-220) Hemoglobin A1c 5.1 % (0-5.9) Calcium Level 9.4 mg/dl (8.4-10.2) Magnesium Level 2.0 mg/dl (1.7-2.5) Total Bilirubin 0.4 mg/dl (0.2-1.3) Direct Bilirubin 0.00 mg/dl (0.00-0.20) Indirect Bilirubin 0.4 mg/dl (0-1.1) Aspartate Amino 27 IU/L (15-46) Transf (AST/SGOT) Alanine 16 IU/L (13-69) Aminotransferase (ALT/SGPT ) Alkaline Phosphatase 67 IU/L (42-121) Total Protein 6.9 g/dl (6.1-8.1) Albumin 3.8 g/dl (3.3-4.9) Globulin 3.10 g/dl (1.3-3.2) Albumin/Globulin Ratio 1.22 ROGER ENRIQUEZ MD Sep 13, 2018 12:13
[2018-09-13 14:05] VITALS: BP 135/94; PULSE 98; RESP 16
--- NOTE | 2018-09-13 14:05 | CONS ---
Assessment/Plan Assessment/Plan Hospital Course 23 yo M c/ HTN, ESRD s/p transplant and other comorbidities, who presents for evaluation of headache....for which neurology is consulted. Noted to be severely hypertensive....a likely contributor.. A focal COPY MACHINE OPERATOR process is unlikely.. CT Head is notable for post-op changes...as well as a retrocerebellar fluid filled cavity that is unlikely to be of clinical significance.. P: Await UDS OK to continue Keppra per ops Ativan iv prn prolonged seizure or cluster Other medical management per primary Will follow clinically Consultation Date/Type/Reason Admit Date/Time Sep 12, 2018 at 05:12 Type of Consult Neurology Reason for Consultation headache Requesting Provider: ROGER ENRIQUEZ MD Date/Time of Note DATE: 09/13/18 TIME: 14:05 24 HR Interval Summary Free Text/Dictation Continues acute care. No c/o headache today. Awaiting discharge. Exam Vital Signs Vitals Vital Signs Date Temp Pulse Resp B/P (MAP) Pulse Ox O2 O2 Flow FiO2 Time Delivery Rate 09/13/18 81 146/95 10:54 (112) 09/13/18 98.1 16 96 Room Air 07:20 Intake and Output 09/12/18 09/12/18 09/13/18 1515:00 23:00 07:00 IntakeIntake Total 540 ml 0 ml OutputOutput Total 300 ml 200 ml BalanceBalance 240 ml -200 ml Exam PE: Gen Appearance: No Apparent Distress HEENT: Normocephalic; has R frontotemporal craniotomy scar Cardiovascular: Regular rate Lungs: Clear bilaterally Abdomen: Soft Extremities: Dry NE: The patient was alert and oriented.Language was normal. Fund of knowledge was normal. Pupils were equal and reactive to light. There was no afferent pupillary defect. Visual mcdowell were normal. Funduscopic examination was limited. Extra-ocular movements were full. Ptosis was absent. There was no nystagmus. Facial sensation was normal. Face was symmetric with normal strength. Hearing was intact. Palate movements were normal. Neck strength was normal. There was normal tongue bulk and speed of movement. Tone was normal. Muscle bulk was normal. I did not see fasciculations. Arms and legs were strong. Vibration sensation was normal. Temperature and pinprick sensation was normal. Rapid alternating movements were normal. There was no dysmetria. There was no intention tremor. Gait was steady.. Arm and leg reflexes were 2+ and symmetric. Castillo's sign was absent. Plantar responses were flexor. ZAMZAM ENCISO NP Sep 13, 2018 14:05 GARRETT GLASER Sep 13, 2018 15:13
== END 2018-09-13 15:07 | disposition home or self-care (01) | DRG 682 ==
LOC: E/R 03:47 → ICU 05:12 → PP2 19:54
PROVIDERS: ADMIT Family Medicine; ATTEND Family Medicine
DX: I12.0 Hypertensive chronic kidney disease with stage 5 chronic kidney disease or end stage renal disease (principal); N18.6 End stage renal disease; Z94.0 Kidney transplant status; Z86.73 Personal history of transient ischemic attack (TIA), and cerebral infarction without residual deficits; Z95.820 Peripheral vascular angioplasty status with implants and grafts; G40.909 Epilepsy, unspecified, not intractable, without status epilepticus; Z79.899 Other long term (current) drug therapy; E87.6 Hypokalemia; E83.9 Disorder of mineral metabolism, unspecified; G62.9 Polyneuropathy, unspecified; Z86.79 Personal history of other diseases of the circulatory system
CPT/HCPCS: 36415; 70450; 71045; 80048; 80053; 81003; 82043; 83036; 83735; 84155; 84300; 84484; 85025; 85610; 85730; 87081; 93005; 96374; 96375; J0360; J2060; J2270; J2405; J7507; J7512; J7517

== ENCOUNTER 2019-01-28 03:19 | Emergency (ER) | payer OTHER ==
[~2019-01-28] VITALS: Ht 160 cm; Wt 63.1 kg
[~2019-01-28 03:19] MED LIST changes: -HYDR-4011 PO; +NIFE30TA23 PO; -NIFE30TA66 PO; +OXYC-279 PO
[2019-01-28 03:20] VITALS: Ht 160 cm; Wt 63.1 kg
[2019-01-28] MEDS ORDERED: ONDANSETRON 4 MG INJ IV STA (03:37)
[2019-01-28] MEDS ORDERED: morphine 4 MG/ML VIAL IV STA (03:37)
[2019-01-28] MEDS ORDERED: SOD CHLORIDE 0.9% 500 ML IV STA (03:37)
[2019-01-28] MEDS ORDERED: hydrALAzine 20 MG INJ IV ONE ×2 (04:00→06:00)
--- NOTE | 2019-01-28 04:21 | ERD ---
ER Documentation Chief Complaint Chief Complaint headache,nausea, vomiting ,palpitations. HPI 23-year-old man here for headache and hypertension, patient has a long history of a chronic recurrent headaches and is status post intracranial hemorrhage and hemicraniectomy. Patient has poorly controlled hypertension. He does not under go hemodialysis but has a history of end-stage kidney disease, he has had no neck pain or stiffness, no slurred speech, no blurry vision, no vomiting. Patient denies chest pain or shortness of breath. ROS All systems reviewed and are negative except as per history of present illness. Medications Home Meds Active Scripts Oxycodone HCl/Acetaminophen (Percocet 5-325 mg Tablet) 1 Each Tablet, 1 EACH PO TID PRN for PAIN LEVEL 6-10, #12 TAB Prov:LONNIE LIU MD 01/28/19 Nifedipine* (Nifedipine ER*) 30 Mg Tablet.sa, 30 MG PO DAILY for 30 Days, #30 TAB.SA Prov:ROGER ENRIQUEZ MD 09/13/18 Ondansetron Hcl* (Zofran*) 4 Mg Tablet, 4 MG PO Q6H PRN for NAUSEA AND OR VOMITING, #30 TAB Prov:IRENE ARRIAGA 09/21/16 Docusate Sodium* (Colace*) 100 Mg Capsule, 100 MG PO Q24H PRN for CONSTIPATION, #30 CAP Prov:ESTEFANY OTERO V. FINANCIAL COMPLIANCE MANAGER 03/15/16 Reported Medications Hydralazine Hcl* (Hydralazine Hcl*) 100 Mg Tablet, 100 MG PO TID TK 1 T PO TID 06/22/18 Pantoprazole* (Pantoprazole*) 40 Mg Tablet.dr, 40 MG PO DAILY for 30 Days, #30 TK 1 T PO QD 06/22/18 Ergocalciferol (Vitamin D2) (VITAMIN D2) 50,000 Unit Capsule, 95899 UNITS PO QMONDAY for 83 Days TAKE 1 TABLET BY MOUTH EVERY Mondays06/22/18 Levetiracetam* (Levetiracetam*) 500 Mg Tablet, 500 MG PO BID for 30 Days, #180 TAB TK 3 TS PO BID 06/22/18 Prednisone* (Prednisone*) 2.5 Mg Tablet, 7.5 MG PO DAILY, TAB 10/01/15 Labetalol Hcl* (Labetalol Hcl*) 300 Mg Tablet, 300 MG PO TID, TAB 10/01/15 Ranitidine Hcl (Ranitidine Hcl) 150 Mg Capsule, 75 MG PO BID, CAP 10/01/15 Mycophenolate Mofetil* (Mycophenolate Mofetil*) 500 Mg Tablet, 500 MG PO DAILY, TAB 10/01/15 Tacrolimus* (Tacrolimus*) 1 Mg Capsule, 1 MG PO Q12, CAP 10/01/15 Allergies Allergies: Coded Allergies: No Known Allergy (Unverified , 01/28/19) PMhx/Soc Hypertension, ICH History of Surgery: Yes (CRANIOTOMY, kidney transplant ) Anesthesia Reaction: No Hx Neurological Disorder: No Hx Respiratory Disorders: No Hx Cardiac Disorders: Yes (HTN) Hx Psychiatric Problems: No Hx Miscellaneous Medical Probl: No Hx Alcohol Use: No Hx Substance Use: No Hx Tobacco Use: No Smoking Status: Never smoker FmHx Family History: No diabetes Physical Exam Vitals Vital Signs Date Temp Pulse Resp B/P (MAP) Pulse Ox O2 O2 Flow FiO2 Time Delivery Rate 01/28/19 76 16 148/103 99 Room Air 05:55 (118) 01/28/19 83 16 143/103 98 Room Air 05:46 (116) 01/28/19 77 16 154/110 99 Room Air 05:00 (125) 01/28/19 97.7 76 16 158/115 97 Room Air 03:39 (129) 01/28/19 97.7 74 16 156/108 97 03:20 (124) Physical Exam GENERAL: Well-developed, well-nourished, well-hydrated, in no apparent distress, looks nontoxic in appearance NEURO: Alert and oriented 3, cranial nerves II through XII intact bilaterally, pupils equal round reactive to light, no focal deficits or facial asymmetry, sensation intact distally Strength 5/5 in upper and lower extremities bilaterally CARDIAC: Regular rate and rhythm, no murmurs rubs or gallops LUNGS: Clear bilaterally no wheezing crackles or stridor PSYCH: Normal affect without agitation or irritability Result Diagram: 01/28/19 0340 01/28/19 0340 Results 24 hrs Laboratory Tests Test 01/28/19 03:40 White Blood Count 10.2 10^3/ul Red Blood Count 4.53 10^6/ul Hemoglobin 12.3 g/dl Hematocrit 38.4 % Mean Corpuscular Volume 84.8 fl Mean Corpuscular Hemoglobin 27.2 pg Mean Corpuscular Hemoglobin Concent 32.0 g/dl Red Cell Distribution Width 12.5 % Platelet Count 376 10^3/UL Mean Platelet Volume 9.4 fl Immature Granulocytes % 0.400 % Neutrophils % 60.5 % Lymphocytes % 31.4 % Monocytes % 6.8 % Eosinophils % 0.4 % Basophils % 0.5 % Nucleated Red Blood Cells % 0.0 /100WBC Immature Granulocytes # 0.040 10^3/ul Neutrophils # 6.2 10^3/ul Lymphocytes # 3.2 10^3/ul Monocytes # 0.7 10^3/ul Eosinophils # 0.0 10^3/ul Basophils # 0.1 10^3/ul Nucleated Red Blood Cells # 0.0 10^3/ul Sodium Level 141 mmol/L Potassium Level 3.6 mmol/L Chloride Level 108 mmol/L Carbon Dioxide Level 25 mmol/L Anion Gap 8 Blood Urea Nitrogen 12 mg/dl Creatinine 0.91 mg/dl Est Glomerular Filtrat Rate mL/min > 60 mL/min Glucose Level 106 mg/dl Calcium Level 9.0 mg/dl Current Medications Medications Dose Sig/Tray Start Time Status Last (Trade) Ordered Route PRN Stop Time Admin Dose Reason Admin Sodium 500 ml @ Q1H STAT 01/28/19 DC 01/28/19 Chloride 500 mls/hr IV 03:37 03:45 01/28/19 04:36 Morphine 4 mg ONCE STAT 01/28/19 DC 01/28/19 Sulfate IV 03:37 03:45 (morphine) 01/28/19 03:38 Ondansetron 4 mg ONCE STAT 01/28/19 DC 01/28/19 HCl (Zofran IV 03:37 03:45 Inj) 01/28/19 03:38 Hydralazine 20 mg ONCE ONCE 01/28/19 DC 01/28/19 HCl IV 04:00 03:45 (Apresoline) 01/28/19 04:01 Clonidine 0.1 mg ONCE ONCE 01/28/19 DC (Catapres) PO 05:30 01/28/19 05:31 Hydralazine 20 mg ONCE ONCE 01/28/19 DC HCl IV 06:00 (Apresoline) 01/28/19 06:00 Procedures/MDM IV line was established patient was placed on monitoring analyst rhythm strip revealed a sinus rhythm at about 80 bpm with upright P and T waves. Patient was afebrile I administered 500 cc normal saline IV, morphine 4 mg IV, Zofran 4 mg IV, hydralazine 20 mg IV for hypertension. CT scan of the brain was negative for acute bleed mass or shift. Patient's blood pressure improved and his headache resolved. CBC and electrolytes were normal. Differential diagnoses considered, included but not limited to acute coronary syndrome, pulmonary embolism, aortic dissection, abdominal aortic aneurysm, sepsis, stroke, meningitis, encephalitis, pneumonia, appendicitis, cholecystitis, bowel obstruction, pyelonephritis, nephrolithiasis, cystitis, as well as metabolic, hematologic, and electrolyte abnormalities. As well as abscess, cellulitis, fractures, and dislocations. Patient feels much better at this time, and vital signs are normal, symptoms h ave improved. I did give strict instructions to return to the ED if symptoms continue or worsen, patient will otherwise follow-up with primary care physician. Patient understood instructions and agreed to plan. Disclaimer: Inadvertent spelling and grammatical errors are likely due to EHR/dictation software use and do not reflect on the overall quality of patient care. Also, please note that the electronic time recorded on this note does not necessarily reflect the actual time of the patient encounter. Departure Diagnosis: Primary Impression: Accelerated hypertension Additional Impression: Headache Headache type: tension-type Headache chronicity pattern: acute headache Intractability: not intractable Qualified Codes: G44.209 - Tension-type headache, unspecified, not intractable Condition: LONNIE Gomez MD Jan 28, 2019 04:21
[2019-01-28 05:55] VITALS: BP 148/103; PULSE 76; RESP 16
== END 2019-01-28 05:56 | disposition home or self-care (01) ==
LOC: E/R 03:19
DX: G44.209 Tension-type headache, unspecified, not intractable (principal); I10 Essential (primary) hypertension; R11.2 Nausea with vomiting, unspecified
CPT/HCPCS: 36415; 70450; 80048; 85025; 96374; 96375; J0360; J2270; J2405; J7040; Z7502; Z7610